=== PATIENT | female | born 1935 | race Caucasian/White ===

== ENCOUNTER 2020-05-06 16:42 | Observation (INO) | payer OTHER, SELFPAY ==
--- NOTE | ~2020-05-06 | MR_ITS ---
EXAMINATION: MR brain/brain stem wo con EXAM DATE: 05/07/2020 12:59 INDICATION: Transient ischemic attack. TECHNIQUE: Magnetic resonance imaging (MRI) of the brain/brain stem obtained without contrast. Sagitt al T1, axial diffusion, gradient echo (T2*), T1, T2, FLAIR sequences obtained. Comparison is made to prior examination from 02/11/2019. FINDINGS: There are no areas of restricted diffusion to suggest acute infarction. Punctate old left p eriventricular lacunar infarction. There is no acute hemorrhage seen on the T2*, a hemosiderin sensit aliyah sequence. No intraparenchymal brain mass lesion. There is moderate periventricular and subcortic al T2/FLAIR signal hyperintensity, nonspecific but probably related to small vessel ischemic disease (microangiopathy). There is mild to moderate prominence of the sulci and ventricles related to cere bral atrophy. There are no extra-axial collections. Flow voids are seen in the cerebral arteries o n the T2-weighted sequences consistent with their expected patency. Patient has had bilateral ocular lens surgery. Soft tissue is unremarkable. Small right sphenoid sinus mucous retention cyst. IMPRESSION: 1. Punctate old left periventricular lacunar infarction. 2. Chronic age related findings. Reviewed, dictated and finalized at location A.
--- NOTE | ~2020-05-06 | CT_ITS ---
EXAMINATION: CTA brain carotid DATE: 05/06/2020 17:36 INDICATION: Slurred speech. TECHNIQUE: Computed tomographic angiography (CTA) of the head was performed without and with 100 mL O mnipaque-350 intravenous contrast. CTA of the neck was performed with intravenous contrast. Automated exposure control and iterative reconstruction technique were employed. The dose-length product was 1 608.12 mGy-cm. Maximum intensity projection and volume rendered 3D-reconstructions were created by michael smart technologist on a separate workstation. COMPARISON: Head CT 02/10/2019, brain MRI 02/11/2019 FINDINGS: HEAD CTA: There is an old infarct involving the left caudate nucleus and anterior limb left internal capsule. There are scattered areas of low attenuation in the cerebral white matter. There are old lac unar infarcts in the bilateral thalami. There is no intracranial hemorrhage, acute infarction, or abn ormal intracranial mass lesion. The ventricles are normal in size. There are likely changes of ocular lens replacement surgeries. There is mild mucosal thickening in the paranasal sinuses. The mastoid a ir cells are normal. Left vertebral artery is dominant. There is no significant stenosis of basilar a rtery. There is moderate stenosis of left posterior cerebral artery. There is mild stenosis of the in tracranial internal carotid arteries. Right A1 anterior cerebral artery segment is absent, a normal v ariant. There is no significant stenosis of the middle cerebral arteries. Anterior communicating emperatriz ry is normal. The posterior communicating arteries are normal. There is no aneurysm. NECK CTA: There are nodules in the thyroid measuring up to 9 mm, likely not clinically significant. T here are no pathologically enlarged lymph nodes. There is no significant stenosis of the vertebral ar teries. There is plaque in the proximal internal carotid arteries. There is 0% stenosis of the proxim al right internal carotid artery relative to normal distal artery lumen diameter (NASCET criteria). T here is 9% stenosis of the proximal left internal carotid artery relative to normal distal artery lum en diameter. There is severe cervical spondylosis. IMPRESSION: 1. Old infarcts involving the bilateral thalami, left caudate nucleus, and anterior limb left interna l capsule. 2. Moderate nonspecific cerebral white matter disease, which likely represents chronic small vessel i schemic disease. 3. Moderate stenosis of left posterior cerebral artery. 4. 0% stenosis of the proximal right internal carotid artery relative to normal distal artery lumen d iameter (NASCET criteria). 5. 9% stenosis of the proximal left internal carotid artery relative to normal distal artery lumen emy guerrero. Reviewed, dictated and finalized at location A. IMPRESSION: 1. Old infarcts involving the bilateral thalami, left caudate nucleus, and ante rior limb left internal capsule. 2. Moderate nonspecific cerebral white matter disease, which likely represents chronic small vessel ischemic disease. 3. Moderate stenosis of left posterior cerebral artery. 4. 0% stenosis of the proximal right internal carotid artery relative to normal distal artery lumen diameter (NASCET criteria). 5. 9% stenosis of the proximal left internal carotid artery relative to normal distal artery lumen diameter.
[2020-05-06 16:48] VITALS: BP 162/78; PULSE 69; RESP 22; TEMP 36.4; O2SAT 100
--- NOTE | 2020-05-06 16:57 | ECG_ITS ---
Measurements Intervals [place] Rate: 65 P: 35 WI: 149 QRS: 18 QRSD: 81 T: 20 QT: 356 QTc: 372 Interpretive Statements SINUS RHYTHM EARLY PRECORDIAL R/S TRANSITION BASELINE ARTIFACT- I, II, III, AVR, AVL, AVF BORDERLINE ECG Electronically Signed On 05-06-2020 21:54:42 CDT by Ryley Cha D.O.
--- NOTE | 2020-05-06 16:57 | ED.GENADULT ---
HPI - General Adult General Chief complaint: Neuro Symptoms/Deficit Stated complaint: possible mini stroke Time Seen by Provider: 05/06/20 16:50 Source: patient and family History of Present Illness HPI narrative: Patient is a 85 y/o female complaining of some slurred speech and right facial droop starting about 12:30 PM today. Her symptoms lasted 30 minutes to 1 hour and have resolved. She also has been having dropping thing for about 1 month. She denies any focal weakness or numbness. Related Data Home Medications Medication Instructions Recorded Confirmed acetaminophen [Tylenol Arthritis 650 mg PO Q8H PRN 05/06/20 Pain] calcitriol 0.25 mcg PO 3XW 05/06/20 calcium carbonate [Calcium 600] 600 mg PO BID 05/06/20 pravastatin 40 mg PO HS 05/06/20 05/06/20 rivaroxaban [Xarelto] 20 mg HS 05/06/20 05/06/20 Allergies Allergy/AdvReac Type Severity Reaction Status Date / Time succinylcholine Allergy Severe HARD TO Verified 05/06/20 16:52 WAKE UP allopurinol Allergy Unknown Unknown Verified 05/06/20 16:52 celecoxib Allergy Unknown Unknown Verified 05/06/20 16:52 doxycycline Allergy Unknown Unknown Verified 05/06/20 16:52 erythromycin base Allergy Unknown MYCINS Verified 05/06/20 16:52 levofloxacin Allergy Unknown Unknown Verified 05/06/20 16:52 Penicillins Allergy Unknown Unknown Verified 05/06/20 16:52 Sulfa (Sulfonamide Allergy Unknown Unknown Verified 05/06/20 16:52 Antibiotics) Review of Systems Constitutional: Constitutional: Denies chills, Denies fever(s), Denies headache(s) and Denies weakness Eyes: Eyes: Denies blurry vision ENT: Denies headache(s) and Denies neck pain Cardiovascular: Cardiovascular: Denies chest pain and Denies dyspnea Respiratory: Respiratory: Denies cough and Denies dyspnea Gastrointestinal: Gastrointestinal: Denies abdominal pain, Denies diarrhea, Denies nausea and Denies vomiting Genitourinary: Genitourinary: Denies hematuria and Denies dysuria Musculoskeletal: Musculoskeletal: Denies back pain and Denies neck pain Neurologic: Reports as per HPI, Reports Abnormal speech present, Denies headache(s) and Denies weakness Psychiatric: Comments: facial droop PMFSH Past Medical History Medical History Age-related osteoporosis without current pathological fracture Atopic dermatitis Body mass index (bmi) 36.0-36.9, adult (02/27/17) Cerebrovascular accident (CVA) (~01/2019) Closed fracture of nasal bone with routine healing CVA, old, 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, degenerative, lumbar or lumbosacral GERD without esophagitis History of DVT (deep vein thrombosis) History of unsteady gait Hypertension, essential, benign Left acute otitis media Lesion of hard palate Low kidney function Lumbar back pain with radiculopathy affecting right lower extremity Lumbar spondylosis Menopausal state Mixed hyperlipidemia Obesity, unspecified (05/26/16) Right anterior knee pain Stage 3 chronic kidney disease Family History Family History Father Hypertension Family history of coronary artery disease Mother Hypertension Family history of coronary artery disease Social History Social History Smoking status: Never smoker Second hand tobacco smoke exposure: No Alcohol intake: current Exam Const: General: no acute distress and well developed Orientation/consciousness: oriented to person, oriented to place, oriented to time and patient oriented x3 HENMT: Head: normocephalic Ears: external ears normal General nose exam: Normal external nose present Eyes: General: appearance normal, both eyes and all related structures Conjunctivae: conjunctivae normal Neck: Neck: normal visual inspection and full ROM Chest: Chest palpation & inspection: normal inspection of the chest and no tenderness Resp: Effort
[2020-05-06 17:06] LABS: Basophils Percent Auto 0.6 % (0.2-1.2); Eosinophils Absolute Auto 0.1 K/mm3 (0-0.3); Eosinophils Percent Auto 1.9 % (0-4.4); Hematocrit 45.3 % (37.0-47.0); Hemoglobin 14.8 g/dL (12.0-15.0); Immature Granulocyte Absolute 0.01 K/mm3 (0.00-0.031); Immature Granulocyte Percent A 0.2 % (0-0.5); Lymphocytes Absolute Auto 2.37 K/mm3 (0.9-3.2); Lymphocytes Percent Auto 37.7 % (18.3-44.2); Mean Corpuscular HGB Conc 32.7 g/dl (32-36); Mean Corpuscular Hemoglobin 32.6 pg (26-34); Mean Corpuscular Volume 99.8 fl (80-100); Mean Platelet Volume 11.2 fl (7.4-10.4); Monocytes Absolute Auto 0.6 K/mm3 (0.1-0.6); Monocytes Percent Auto 9.2 % (2.6-8.5); Neutrophils Absolute Auto 3.2 K/mm3 (1.3-6.7); Neutrophils Percent Auto 50.4 % (45.5-73.1); Platelet Count Result 173 k/mm3 (150-375); Red Blood Count 4.54 M/mm3 (4.2-5.4); Red Cell Distribution Width 13.2 % (11.5-14.5); White Blood Count 6.3 K/mm3 (4.5-10.0)
[2020-05-06 17:16] LABS: INR 1.3; Prothrombin Time 15.4 Seconds (11.1-14.7)
[2020-05-06 17:17] LABS: Partial Thromboplastin Time 28.9 SECONDS (22.3-36.8)
[2020-05-06 17:20] LABS: Alanine Aminotransferase 21 U/L (4-35); Albumin Level 4.3 g/dL (3.5-5.1); Alkaline Phosphatase 106 U/L (38-126); Anion Gap 9 mmol/L (8-16); Aspartate Amino Transferase 39 U/L (14-36); Bilirubin,Total 0.7 mg/dL (0.2-1.3); Blood Urea Nitrogen 26 mg/dL (7-17); Calcium 9.3 mg/dL (8.4-10.2); Carbon Dioxide 28 mmol/L (22-30); Chloride 101 mmol/L (98-107); Estimated CRCL calculation 27 ml/min; Estimated Glomerular Filt Rate 36; Glucose 94 mg/dL (65-105); Potassium 4.6 mmol/L (3.4-5.0); Sodium 138 mmol/L (137-145)
[2020-05-06 17:47] VITALS: BP 147/59; PULSE 70; RESP 18; O2SAT 99
[2020-05-06] MEDS: SODIUM CHLORIDE 0.9% IV 1,000 ML 999 ML IV CONT (18:24)
[2020-05-06 19:07] VITALS: BP 158/92; PULSE 70; RESP 17; O2SAT 95
[2020-05-06 20:02] VITALS: BP 172/83; PULSE 75; RESP 16; O2SAT 100
--- NOTE | 2020-05-06 20:50 | PC.NURSE ---
This patient, Sandra Stein, was admitted to [facility]- at 2024. Patient/family oriented to hospital policies and general routines including ID bracelet, bed and alarms, visiting hours, pain management, procedures, bathroom and other care routines, personal items, smoking policy, room service/diet, and visiting hours. Valuables list has been completed. Information on how to activate the Rapid Response Team has been discussed. Patient/Family are encouraged to report perceived risks to care and to ask questions if they do not understand what they are told or what they should do.
[2020-05-06 21:09] VITALS: PULSE 80
[2020-05-06 21:23] VITALS: BP 181/75; PULSE 80; RESP 18; TEMP 37.1; O2SAT 98; BMI 37.7
[2020-05-07] VITALS (11 sets, daily range): BP systolic 150–184; BP diastolic 59–80; PULSE 58–76; RESP 14–16; TEMP 36.4–37; O2SAT 96–100
--- NOTE | 2020-05-07 | ECHO_ITS ---
Patient Info Name: Sandra Stein Age: 85 years : 1935 Gender: Female Ht: 60 in Wt: 193 lbs BSA: 1.97 m2 HR: 68 bpm BP: 175 / 71 mmHg Technical Quality: Good Exam Date: 05/07/2020 2:24 PM Exam Location: [facility] Patient Status: Outpatient Admit Date: 05/06/2020 Staff Ordering Physician: Nyla Dhillon PA-C Director Pharmacology: Tal Sanchez, SARA, RT Attending Provider: Nyla Dhillon PA-C Referring Physician: Alejo VASQUEZ; Exam Type: CA echo dop bubble study w con Study Info Indications G45.9 - Transient cerebral ischemic attack, unspecified Complete two-dimensional, color flow and Doppler transthoracic echocardiogram is performed with contrast to opacify the left ventricle and to improve the deliniation of the left ventricle endocardial borders. Complete two-dimensional, color flow and Doppler transthoracic echocardiogram is performed with agitated saline. Summary 1. Left ventricular chamber dimension is normal. 2. Definity contrast administered improved wall motion interpretation. 3. No LVOT obstruction. 4. Left ventricular systolic function is hyperdynamic, estimated at >70%. 5. The left ventricular diastolic function is grade I diastolic dysfunction. 6. E/e' 12 is mildly elevated. 7. Global longitudinal strain is mildly abnormal at -16.5%. 8. Left atrial chamber dimension is mildly enlarged. 9. Right atrial chamber dimension is mildly enlarged. 10. There is mild aortic valve sclerosis. 11. The mitral valve has mildly calcified annulus. 12. Mild systolic anterior motion of mitral valve. 13. There is mild tricuspid valve regurgitation. 14. Mild pulmonary hypertension, estimated pulmonary arterial systolic pressure is 41 mmHg. Left Ventricle E/e' 12 is mildly elevated. Definity contrast administered improved wall motion interpretation. Global longitudinal strain is mildly abnormal at -16.5%. No LVOT obstruction. Left ventricular chamber dimension is normal. Left ventricular systolic function is hyperdynamic, estimated at >70%. The left ventricular diastolic function is grade I diastolic dysfunction. Right Ventricle Right ventricular chamber dimension is normal. Right ventricular systolic function is normal. Left Atria Left atrial chamber dimension is mildly enlarged. Right Atria Right atrial chamber dimension is mildly enlarged. Atrial Septum Agitated saline injection with and without valsalva maneuver opacified right sided cardiac chambers without shunt to left sided cardiac chambers. Intact interatrial septum visualized by agitated saline imaging. Aortic Valve The aortic valve is trileaflet. There is mild aortic valve sclerosis. There is no aortic valve stenosis. There is no aortic valve regurgitation. Pulmonic Valve There is no pulmonic regurgitation. Mitral Valve The mitral valve has mildly calcified annulus. Mild systolic anterior motion of mitral valve. There is no mitral valve stenosis. There is no mitral valve regurgitation. Tricuspid Valve There is mild tricuspid valve regurgitation. Mild pulmonary hypertension, estimated pulmonary arterial systolic pressure is 41 mmHg. Pericardium/Pleural There is no pericardial effusion. Inferior Vena Cava Normal inferior vena cava with >50% collapse upon inspiration consistent with normal right atrial pressure, 5 mmHg. Aorta The aortic root size at the sinus of Valsalva is normal. Left Ventricular Outflow Tract
--- NOTE | 2020-05-07 00:12 | PM.IMHP ---
H&P: HPI History of Present Illness Date/Time: 05/07/20 00:12 Chief complaint: tia Narrative: Sandra Stein is a 85 year old female has a hx of afib and is on Xarelto. The patient was admitted here in January of last year was slurred speech. The patient had head trauma prior to that. She suffered a closed head injury and her nondisplaced nasal fracture per at that time. She has also had a history of TIA in the past. Her daughter and has been taking her medication. Patient came it was slurred speech and right facial droop. Her symptoms lasted 30 minutes to 1 hour. Her symptoms resolved after that. She has no focal weakness. Patient is back to baseline. CT scan of the brain was read as old infarcts involving the bilateral thalami, left caudate nucleus, and anterior limb of left internal capsule. Moderate nonspecific cerebral white matter disease. Moderate stenosis of the left partial cerumen artery. IV fluids were started. Date of service 05/06/2020 Review of Systems Review of Systems: All systems reviewed & are unremarkable except as noted in HPI and below Constitutional: Constitutional: Reports as per HPI and Reports no additional constitutional complaints Eyes: Eyes: Reports as per HPI and Reports no additional eye complaints ENT: Reports system reviewed and no additional complaints, except as documented and Reports Normal hearing present Cardiovascular: Cardiovascular: Reports no additional cardiovascular complaints Respiratory: Respiratory: Reports no additional respiratory complaints and Reports no additional respiratory complaints Gastrointestinal: Gastrointestinal: Reports as per HPI and Reports no additional gastrointestinal complaints Musculoskeletal: Musculoskeletal: Reports no additional musculoskeletal complaints Integumentary/Breasts: Skin/Breast: Reports system reviewed and no additional complaints, except as docu and Reports as per HPI Neurologic: Reports system reviewed and no additional complaints, except as documented, Reports as per HPI and Reports Normal hearing present Psychiatric: Psychiatric: Reports no additional psychiatric complaints and Reports as per HPI Endocrine: Endocrine: Reports no additional endocrine complaints Hematologic/Lymphatic: Hematologic/Lymphatic: Reports no additional hematologic/lymphatic complaints Allergic/Immunologic: Allergic/Immunologic: Reports no additional allergic/immunologic complaints [facility] Past Medical History Medical History (Updated 05/07/20 @ 00:30 by Martine Dye NP) Age-related osteoporosis without current pathological fracture Atopic dermatitis Atrial fibrillation Paroxysmal Body mass index (bmi) 36.0-36.9, adult (02/27/17) Cerebrovascular accident (CVA) (~01/2019) Closed fracture of nasal bone with routine healing CVA, old, 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, degenerative, lumbar or lumbosacral DVT (deep venous thrombosis) GERD without esophagitis Gout History of DVT (deep vein thrombosis) History of esophageal dilatation History of unsteady gait Hypertension, essential, benign Left acute otitis media Lesion of hard palate Low kidney function Lumbar back pain with radiculopathy affecting right lower extremity Lumbar spondylosis Menopausal state Mixed hyperlipidemia Obesity, unspecified (05/26/16) Right anterior knee pain Shingles Stage 3 chronic kidney disease Surgical History Surgical History (Updated 05/07/20 @ 00:30 by Martine Dye NP) H/O dilation and curettage History of cataract extraction Hx of total knee arthroplasty Left S/P rotator cuff repair Family History Family History Father Family history of coronary artery disease Hypertension Mother Family history of coronary artery disease Hypertension Sibling Dementia Social History Social History (Updated 05/07/20 @ 00:32 by Martine Dye NP) Social History: The patient lives with h
--- NOTE | 2020-05-07 08:37 | PM.IMPN ---
Progress Note: A&P Assessment and Plan (1) TIA (transient ischemic attack): Code(s): G45.9 - Transient cerebral ischemic attack, unspecified Status: Acute Assessment and Plan: With transient episode of right facial droop and slurred speech. No residual deficit present at this time. CTA head/neck demonstrated old infarcts in the bilateral thalami, left caudate nucleus, and anterior limb left internal capsule, chronic small vessel ischemic disease, and moderate stenosis of the left posterior cerebral artery. No significant carotid stenosis visualized with 0% stenosis of the proximal right internal carotid artery and 9% stenosis of the proximal left carotid artery. She is not on any antihypertensives and reports blood pressures have been higher in the past 3-4 months (150s systolic - denies >180). Allow for permissive hypertension for now but she may need antihypertensive therapy. She has a hx of paroxysmal atrial fibrillation on xarelto. She has a hx of TIA 01/2019. She was on aspirin and plavix in the past but has not been taking either. She may benefit from both ASA and plavix given recurrent TIAs. Continue ASA. Stop pravastatin and start high-intensity statin. I will ask cardiology to see her to weigh in on their recommendations regarding xarelto. She had a hx of fall 01/28/19 and xarelto was held for three weeks. She subsequently developed TIA and xarelto was resumed. Telemetry monitoring performed 03/11 demonstrated sinus rhythm, episodes of SVT, and symptomatic sinus bradycardia (metoprolol discontinued given that finding). Appreciate cardiology and neurology input. Order echocardiogram with bubble study and await MRI. TSH ordered and pending. (2) Atrial fibrillation: Code(s): I48.91 - Unspecified atrial fibrillation Status: Chronic Assessment and Plan: Paroxysmal. The patient is in sinus rhythm at this time. Xarelto is held at this time while waiting for further neurology input. She was on metoprolol previously but this was discontinued due 05/27/19 by cardiology due to excessive fatigue and marked sinus bradycardia. She sees Dr. Waterman for primary cardiology. Await neurology input regarding when to resume xarelto. (3) Mixed hyperlipidemia: Code(s): E78.2 - Mixed hyperlipidemia Status: Acute Assessment and Plan: Recommend high-intensity statin and will change pravastatin to atorvastatin 40mg. Lipid panel reviewed from 6/21/19. Will repeat. Mild AST elevation at 39 noted. Pt will need LFTs monitored outpatient. (4) History of DVT (deep vein thrombosis): Code(s): Z86.718 - Personal history of other venous thrombosis and embolism Status: Acute Assessment and Plan: Xarelto is held at this time pending MRI/neurology recommendations. Continue SCDs and resume xarelto when clinically appropriate. (5) Hypertension, essential, benign: Code(s): I10 - Essential (primary) hypertension Status: Acute Assessment and Plan: The patient is not on any antihypertensives at this time. Blood pressures are above target. Allow for permissive hypertension for now but she will need better BP control and recommend initiation of antihypertensive prior to discharge if BP does not improve. Time Spent With Patient Time with patient: 25 - 35 minutes Subjective Date/time seen: 05/07/20 08:37 Mrs. Stein is an 85 y.o. female with PMH significant for atrial fibriillation on xarelto, hx of CVA, hx of DVT, hyperlipdemia, and stage III kidney disease who is seen in follow-up for TIA. She had an episode of transient slurred speech and right facial droop which she states lasted 30-60 minutes prior to admission. Symptoms resolved with no residual deficit. She reports no further neurological symptoms. She denies lateralizing weakness, vision change, and speech change. She enies chest pain, palpitations, and dyspnea. She denies nausea, vomiting, and abdominal pain. He
[2020-05-07] MEDS: ATORVASTATIN 40 MG TABLET PO (09:42)
[2020-05-07] MEDS: ASPIRIN 81 MG ENTERIC TABLET PO (09:42)
[2020-05-07] MEDS: CALCIUM CARBONATE (OSCAL) 500 MG TABLET PO ×2 (09:42→17:22)
[2020-05-07] MEDS: calcitrioL 0.25 MCG CAPSULE PO (09:48)
--- NOTE | 2020-05-07 10:49 | WPDNEURCNPN ---
Assessment and Plan Assessment and plan (1) Atrial fibrillation: Code(s): I48.91 - Unspecified atrial fibrillation Status: Chronic (2) Slurred speech: Code(s): R47.81 - Slurred speech Status: Acute (3) TIA (transient ischemic attack): Code(s): G45.9 - Transient cerebral ischemic attack, unspecified Status: Acute (4) CVA, old, speech/language deficit: Onset Date: ~01/2019 Code(s): I69.328 - Other speech and language deficits following cerebral infarction Status: Chronic (5) History of unsteady gait: Code(s): Z87.898 - Personal history of other specified conditions Status: Acute Additional Plan TIA with history of underlying atrial fibrillation for which patient is on anticoagulation that is xarelto, initial studies have documented the bilateral subcortical strokes in the past as well,MRI will be obtained to document any new changes ,in the meantime the treatment will be continued as such Consult date: 05/07/20 Time Seen: 10:15 HPI: Sandra Stein is a 85 year old femaleAdmitted to the hospital with the complaints of slurred speech and right facial droop lasting for 30 minutes [id number] without associated focal weakness initial CT scan of the brain in the emergency room documented old infarct involving the bilateral thalamus nuclei left caudate nucleus and anterior limb of the left internal capsule along with the nonspecific white matter disease in addition patient has history of 1. Atrial fibrillation for which she is taking Xarelto 2. Being admitted in January of last year for the dysarthria 3. Closed head trauma with non displaced nasal fracture 4. History of TIA in the past CTA documented the bilateral thalami left caudate nucleus and anterior limb of the left internal capsule infarct with nonspecific white matter disease moderate stenosis of left posterior cerebral artery but nonsignificant stenosis of the proximal right and left internal carotid arteries MRI of the brain at this particular state is awaited Review of Systems Review of Systems: All systems reviewed & are unremarkable except as noted in HPI and below [facility] Past Medical History Medical History (Updated 05/07/20 @ 00:30 by Martine Dye NP) Age-related osteoporosis without current pathological fracture Atopic dermatitis Atrial fibrillation Paroxysmal Body mass index (bmi) 36.0-36.9, adult (02/27/17) Cerebrovascular accident (CVA) (~01/2019) Closed fracture of nasal bone with routine healing CVA, old, 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, degenerative, lumbar or lumbosacral DVT (deep venous thrombosis) GERD without esophagitis Gout History of DVT (deep vein thrombosis) History of esophageal dilatation History of unsteady gait Hypertension, essential, benign Left acute otitis media Lesion of hard palate Low kidney function Lumbar back pain with radiculopathy affecting right lower extremity Lumbar spondylosis Menopausal state Mixed hyperlipidemia Obesity, unspecified (05/26/16) Right anterior knee pain Shingles Stage 3 chronic kidney disease Surgical History Surgical History (Updated 05/07/20 @ 00:30 by Martine Dye NP) H/O dilation and curettage History of cataract extraction Hx of total knee arthroplasty Left S/P rotator cuff repair Family History Family History Father Family history of coronary artery disease Hypertension Mother Family history of coronary artery disease Hypertension Sibling Dementia Social History Social History (Updated 05/07/20 @ 00:32 by Martine Dye NP) Social History: The patient lives with her daughter. 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 Her son Abel is a durable power insurance defense attorney for healthcare. And she desires to be a full code. She denies any alcohol, marijuana, tobacco Nor illicit drugs. Smoking status: Never smoker Second
--- NOTE | 2020-05-07 12:13 | PCSTNOTE ---
Please refer to the Bedside Swallow Evaluation in the EMR. Please note, silent aspiration cannot be ruled out at bedside.
--- NOTE | 2020-05-07 14:16 | PM.CNCAR ---
Assessment and Plan Additional Plan 85-year-old white female with: Recurrent neurological episodes representing either CVAs or TIAs. She has been anticoagulated for a period of time now with Xarelto because of the diagnosis of atrial fibrillation. After reviewing Dr. Waterman notes and the hospital records I believe we should be skeptical of this diagnosis since no one has ever seen atrial fibrillation that I can detect by looking at the chart. The patient also does not really recall where this diagnosis came from. It is therefore my opinion that I would not recommend resuming anticoagulation with Xarelto or anything else unless we document atrial fibrillation. She should remain on telemetry while she is in the hospital for that reason. If we do not see any evidence of atrial fibrillation I would recommend instituting anti-platelet therapy with clopidogrel 75 mg daily. Jerry Perdomo MD [facility] History of Present Illness History of Present Illness Consult date/time: Date of jwaqzao19/14/20 14:16 Consult reason: atrial fibrillation Reason For Visit: tia Narrative: this is an 85-year-old woman that is known to Dr. Waterman of our practice with seeing at the request of the hospitalist's to render an opinion as to the indication for ongoing systemic anticoagulation. The patient follows with Dr. Parra in our practice and was referred to see him in the past to manage atrial fibrillation. Upon reading his extensive office notes it is very interesting that this lady somewhere in the chart has give been given the diagnosis of atrial fibrillation but despite an exhaustive effort to Dr. Waterman has never been able to find any documentation of that. All of the electrocardiograms that are available to look at in the chart demonstrate nothing but sinus rhythm going back a number of years and she had a 30 day event monitor last year which did not show any evidence of atrial fibrillation during the month of monitoring. She has no symptoms of palpitations or tachycardia. She has no history of syncopal episode. Because of the supposed diagnosis of atrial fibrillation she has been treated with systemic anticoagulation with Xarelto at a dosage of 20 mg per day. Interestingly in December of 2018 she had symptoms of a TIA with some expressive aphasia despite being anticoagulated and in sinus rhythm. Patient was brought to the hospital again yesterday with similar symptoms which lasted about 30 minutes to an hour. She is currently asymptomatic and offers no complaints. Patient's 12 lead electrocardiogram again in this hospitalization is completely normal. Review of Systems Constitutional: Constitutional: Reports no additional constitutional complaints Eyes: Eyes: Reports no additional eye complaints ENT: Reports system reviewed and no additional complaints, except as documented Cardiovascular: Cardiovascular: Reports no additional cardiovascular complaints Respiratory: Respiratory: Reports no additional respiratory complaints Gastrointestinal: Gastrointestinal: Reports no additional gastrointestinal complaints Musculoskeletal: Musculoskeletal: Reports no additional musculoskeletal complaints Integumentary/Breasts: Skin/Breast: Reports system reviewed and no additional complaints, except as docu Neurologic: Reports as per HPI and Reports Abnormal speech present Psychiatric: Psychiatric: Reports no additional psychiatric complaints Endocrine: Endocrine: Reports no additional endocrine complaints Hematologic/Lymphatic: Hematologic/Lymphatic: Reports no additional hematologic/lymphatic complaints Allergic/Immunologic: Allergic/Immunologic: Reports no additional allergic/immunologic complaints [facility] Past Medical History Medical History (Updated 05/07/20 @ 00:30 by Martine Dye NP) Age-related osteoporosis without current pathological fracture Atopic dermatitis Atrial fibrillation Paroxysmal Body mass index (bmi) 36.0-36.9, adult (
[2020-05-07] MEDS: PERFLUTREN LIPID MICROSPHERES 1.5 ML VIAL DILUTED TO 10 ML TOTAL VOLUME IV PUSH (15:27)
[2020-05-07] MEDS: ACETAMINOPHEN 325 MG TABLET 650 MG PO (19:51)
[2020-05-08] VITALS (7 sets, daily range): BP systolic 138–168; BP diastolic 63–73; PULSE 53–88; RESP 12–16; TEMP 36.4–36.7; O2SAT 97–99
[2020-05-08 05:28] LABS: Basophils Percent Auto 0.6 % (0.2-1.2); Eosinophils Absolute Auto 0.2 K/mm3 (0-0.3); Eosinophils Percent Auto 3.9 % (0-4.4); Hematocrit 41.2 % (37.0-47.0); Hemoglobin 13.7 g/dL (12.0-15.0); Immature Granulocyte Absolute 0.01 K/mm3 (0.00-0.031); Immature Granulocyte Percent A 0.2 % (0-0.5); Lymphocytes Absolute Auto 1.87 K/mm3 (0.9-3.2); Lymphocytes Percent Auto 38.6 % (18.3-44.2); Mean Corpuscular HGB Conc 33.3 g/dl (32-36); Mean Corpuscular Volume 99.3 fl (80-100); Mean Platelet Volume 11.3 fl (7.4-10.4); Monocytes Absolute Auto 0.4 K/mm3 (0.1-0.6); Monocytes Percent Auto 8.7 % (2.6-8.5); Neutrophils Absolute Auto 2.3 K/mm3 (1.3-6.7); Platelet Count Result 149 k/mm3 (150-375); Red Blood Count 4.15 M/mm3 (4.2-5.4); Red Cell Distribution Width 13.1 % (11.5-14.5); White Blood Count 4.9 K/mm3 (4.5-10.0)
[2020-05-08 05:39] LABS: Anion Gap 5 mmol/L (8-16); Blood Urea Nitrogen 26 mg/dL (7-17); Calcium 9.2 mg/dL (8.4-10.2); Carbon Dioxide 26 mmol/L (22-30); Chloride 109 mmol/L (98-107); Estimated CRCL calculation 31 ml/min; Estimated Glomerular Filt Rate 43; Glucose 99 mg/dL (65-105); Magnesium 1.8 mg/dL (1.6-2.3); Phosphorus 3.6 mg/dL (2.5-4.5); Sodium 140 mmol/L (137-145)
[2020-05-08] MEDS: ATORVASTATIN 40 MG TABLET PO (08:07)
[2020-05-08] MEDS: CALCIUM CARBONATE (OSCAL) 500 MG TABLET PO (08:07)
[2020-05-08] MEDS: ASPIRIN 81 MG ENTERIC TABLET PO (08:07)
[2020-05-08] MEDS: CLOPIDOGREL BISULFATE 75 MG TABLET PO (11:14)
--- NOTE | 2020-05-08 11:20 | PM.PNCARD ---
Progress Note: A&P Assessment and Plan (1) TIA (transient ischemic attack): Code(s): G45.9 - Transient cerebral ischemic attack, unspecified Status: Acute Assessment and Plan: Symptoms have resolved. Xarelto change to aspirin plus Plavix. Pravastatin changed to atorvastatin 40 mg daily Okay for discharge from my point of view. Will arrange for follow-up office visit with Dr. Waterman and check with him regarding further monitoring or a LINQ Loop recorder , though we have not seen any atrial fibrillation to date. (2) Hypertension, essential, benign: Code(s): I10 - Essential (primary) hypertension Status: Acute Assessment and Plan: blood pressure a bit high but will be starting on losartan. (3) H/O: stroke: Code(s): Z86.73 - Personal history of transient ischemic attack (TIA), and cerebral infarction without residual deficits Status: Acute Assessment and Plan: Multiple old strokes noted by CT scan. (4) Cerebrovascular disease: Code(s): I67.9 - Cerebrovascular disease, unspecified Status: Acute Assessment and Plan: [id number] cerebrovascular disease noted. Carotids had minimal disease. Continue anti-platelet therapy and statin. Continue with blood pressure management. Subjective Date/time seen: 05/08/20 11:20 Follow-up another TIA. Mrs. Cruz is followed by Dr. Waterman, with a history of TIAs. Questionable history of AFib which has never been confirmed. Date of service: 05/08/2020 Patient feels she has been back to normal, no further trouble with slurred speech. Because of lack of evidence of a fib and recurrent TIA, the patient was changed from Xarelto to Plavix plus aspirin. Echo yesterday showed EF greater than 70%. CTA as below. Tele: NSR, APCs. Review of Systems Review of Systems: Narrative: Hopes to go home today. Constitutional: Constitutional: Denies fatigue Eyes: Eyes: Reports no additional eye complaints ENT: Denies epistaxis Cardiovascular: Cardiovascular: Denies chest pain Respiratory: Respiratory: Denies cough and Denies dyspnea Gastrointestinal: Gastrointestinal: Denies abdominal pain Genitourinary: Genitourinary: Denies hematuria and Denies flank pain Musculoskeletal: Musculoskeletal: Denies back pain Integumentary/Breasts: Skin/Breast: Denies rash Neurologic: Denies Abnormal speech present and Denies confusion Psychiatric: Psychiatric: Reports no additional psychiatric complaints and Denies behavioral changes Exam Narrative: Exam Narrative: Pleasant older lady sitting up in a chair, eating her lunch, no distress. Const: General: comfortable and no acute distress HENMT: General nose exam: no epistaxis Mouth: Yes moist mucous membranes Eyes: EOM: EOMs intact bilaterally Neck: Neck: supple Resp: Effort & Inspection: normal respiratory effort Auscultation: clear to auscultation bilaterally Cardio: Rate: regular rate Rhythm: regular rhythm Heart sounds: no murmurs Objective Data Vital Signs Vital Signs: Vital Signs - 24 hr 05/07/20 12:00 05/07/20 15:30 05/07/20 16:00 Temperature 98.2 F Pulse Rate 63 60 67 Respiratory Rate 16 Blood Pressure 184/77 H Pulse Oximetry 97 05/07/20 20:00 05/07/20 20:16 05/08/20 00:00 Temperature 98.6 F Pulse Rate 71 75 60 Respiratory Rate 14 Blood Pressure 150/59 H Pulse Oximetry 100 05/08/20 02:40 05/08/20 04:00 05/08/20 08:00 Temperature 98.1 F Pulse Rate 88 53 L 72 Respiratory Rate 12 Blood Pressure 168/73 H Pulse Oximetry 98 Intake/Output Intake/Output: Intake & Output 05/05/20 05/06/20 05/07/20 05/08/20 23:59 23:59 23:59 23:59 Intake Total 1000 1910 640 Output Total 2450 1100 Balance 1000 -540 -460 Meds/Results Medications: Active Medicatio
--- NOTE | 2020-05-08 11:58 | PM.DS ---
DS: Admitting Diagnosis Admitting Diagnosis Admitting Diagnosis: tia DS: Discharge Diagnosis Discharge Diagnosis (1) TIA (transient ischemic attack): Code(s): G45.9 - Transient cerebral ischemic attack, unspecified Status: Acute Assessment and Plan: With transient episode of right facial droop and slurred speech. No residual deficit present at this time. CTA head/neck demonstrated old infarcts in the bilateral thalami, left caudate nucleus, and anterior limb left internal capsule, chronic small vessel ischemic disease, and moderate stenosis of the left posterior cerebral artery. No significant carotid stenosis visualized with 0% stenosis of the proximal right internal carotid artery and 9% stenosis of the proximal left carotid artery. Telemetry monitoring showed NSR with HR 62 bpm with PACs, but no findings of arrhythmia or afib. Echocardiogram with bubble study showed normal systolic EF 70%, diastolic grade I. NO acute abnormality. MRI showed no acute CVA, old CVA, moderate stenosis at left posterior vertebral artery. TSH normal. Speech evaluated and she did well with bedside evaluation and eating trial. Regular diet and thin liquids. Recorded history of paroxysmal atrial fibrillation on xarelto. Cardiology consulted and have yet to found Afib evidence on multiple heart monitors and none during this hospitalization. Cardiology would like to discontinue Xarelto and start Aspirin 81 mg and Plavix 75 mg. Stop pravastatin and start high-intensity statin, Atrovastatin. Will need to check lipid panel as outpatient in weeks. The patient is currently at her baseline and feels comfortable discharge at this time. She will follow-up with her primary care provider in 1 week and Cardiology will schedule her follow-up appointment with Dr. Waterman. patient understands and agrees the plan all questions answered. (2) Atrial fibrillation: Code(s): I48.91 - Unspecified atrial fibrillation Status: Chronic Assessment and Plan: Recorded history of paroxysmal atrial fibrillation on xarelto. Cardiology consulted and have yet to found Afib evidence on multiple heart monitors and none during this hospitalization. Cardiology would like to discontinue Xarelto and start Aspirin 81 mg and Plavix 75 mg. (3) Mixed hyperlipidemia: Code(s): E78.2 - Mixed hyperlipidemia Status: Acute Assessment and Plan: Recommend high-intensity statin and will change pravastatin to atorvastatin 40mg. Will need fasting lipid panel in 6 weeks as well as monitoring of her liver functions. (4) History of DVT (deep vein thrombosis): Code(s): Z86.718 - Personal history of other venous thrombosis and embolism Status: Acute Assessment and Plan: Cardiology feels as are also can be discontinued at this time since she has no significant history of atrial fibrillation. Told to continue being active to prevent recurrence of DVTs. (5) Hypertension, essential, benign: Code(s): I10 - Essential (primary) hypertension Status: Acute Assessment and Plan: She is not on any antihypertensives and reports blood pressures have been higher in the past 3-4 months (150s systolic - denies >180). We Allowed for permissive hypertension, but this morning started her on Losartan 25 mg daily. She will check her BP twice daily and write down her readings to show her PCP. DS: Summary Hospital Course Reason for hospitalization: Patient is an 85-year-old woman with a history of AFib on Xarelto, history of TIA, who presented to the emergency room after having an episode of slurred speech, right facial droop, feeling off balance which lasted about 30 mi
[2020-05-08] MEDS: LOSARTAN POTASSIUM 25 MG TABLET PO (12:25)
--- NOTE | 2020-05-08 13:29 | WPDNEURCNPN ---
Assessment and Plan Assessment and plan (1) Cerebrovascular disease: Code(s): I67.9 - Cerebrovascular disease, unspecified Status: Acute (2) H/O: stroke: Code(s): Z86.73 - Personal history of transient ischemic attack (TIA), and cerebral infarction without residual deficits Status: Acute (3) Gout: Code(s): M10.9 - Gout, unspecified Status: Chronic (4) TIA (transient ischemic attack): Code(s): G45.9 - Transient cerebral ischemic attack, unspecified Status: Acute (5) CVA, old, speech/language deficit: Onset Date: ~01/2019 Code(s): I69.328 - Other speech and language deficits following cerebral infarction Status: Chronic (6) Stage 3 chronic kidney disease: Code(s): N18.3 - Chronic kidney disease, stage 3 (moderate) Status: Acute Additional Plan patient is back to her baseline has been seen by the certified medical records coder the notes were reviewed the present management can be continued Consult date: 05/08/20 Time Seen: 13:00 HPI: Sandra Stein is a 85 year old female was woman admitted because of the reoccurrence of the TIA has been seen by the certified medical records coder her Xarelto has been changed to aspirin and Plavix because there is no clear-cut history of atrial fibrillation the patient is back to her baseline denies any headache nausea vomiting chest pain shortness of breath fever chills sore throat particularly no trouble talking no trouble with dysarthria dysphonia aphasia or any lateralizing weakness Review of Systems Review of Systems: All systems reviewed & are unremarkable except as noted in HPI and below PMFSH Past Medical History Medical History Age-related osteoporosis without current pathological fracture Atopic dermatitis Atrial fibrillation Paroxysmal Body mass index (bmi) 36.0-36.9, adult (02/27/17) Cerebrovascular accident (CVA) (~01/2019) Cerebrovascular disease Closed fracture of nasal bone with routine healing CVA, old, 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, degenerative, lumbar or lumbosacral DVT (deep venous thrombosis) GERD without esophagitis Gout H/O: stroke History of DVT (deep vein thrombosis) History of esophageal dilatation History of unsteady gait Hypertension, essential, benign Left acute otitis media Lesion of hard palate Low kidney function Lumbar back pain with radiculopathy affecting right lower extremity Lumbar spondylosis Menopausal state Mixed hyperlipidemia Obesity, unspecified (05/26/16) Right anterior knee pain Shingles Stage 3 chronic kidney disease Surgical History Surgical History H/O dilation and curettage History of cataract extraction Hx of total knee arthroplasty Left S/P rotator cuff repair Family History Family History Father Family history of coronary artery disease Hypertension Mother Family history of coronary artery disease Hypertension Sibling Dementia Social History Social History Social History: The patient lives with her daughter. 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 Her son Abel is a durable power insurance attorney for healthcare. And she desires to be a full code. She denies any alcohol, marijuana, tobacco Nor illicit drugs. Smoking status: Never smoker Second hand tobacco smoke exposure: No Alcohol intake: never Substance use: never Gender identity (if verbalized by the patient): Female Spiritual care concerns: No Meds Home Medications and Allergies Home Medications Medication Instructions Recorded Confirmed Type ectskdyo-dvrvidpth-eucepkcf 3.5 1 drop LEFTEYE Q6H #5 ml 03/02/20 05/06/20 Rx mg/mL-10,000 unit/mL-0.1% eye drops acetaminophen [Tylenol Arthritis 650 mg PO Q8H PRN 05/06/20 05/06/20 History Pain] calci
== END 2020-05-08 15:15 | disposition home or self-care (01) ==
LOC: ANHED 18:13 → ANH2MED 19:12
PROVIDERS: Nurse Practitioner; Admitting Provider Internal Medicine; Emergency Provider Emergency Medicine; PCP Family Medicine; Visit Provider Physician Assistant
DX: G45.9 Transient cerebral ischemic attack, unspecified (principal); I67.9 Cerebrovascular disease, unspecified; I48.0 Paroxysmal atrial fibrillation; Z79.01 Long term (current) use of anticoagulants; I12.9 Hypertensive chronic kidney disease with stage 1 through stage 4 chronic kidney disease, or unspecified chronic kidney disease; N18.3 Chronic kidney disease, stage 3 (moderate); K21.9 Gastro-esophageal reflux disease without esophagitis; E78.2 Mixed hyperlipidemia; M47.816 Spondylosis without myelopathy or radiculopathy, lumbar region; E66.9 Obesity, unspecified; Z68.36 Body mass index [BMI] 36.0-36.9, adult; M81.0 Age-related osteoporosis without current pathological fracture; M10.9 Gout, unspecified
CPT/HCPCS: 36415; 70496; 70498; 70551; 80048; 80053; 83735; 84100; 84443; 85025; 85610; 85730; 92610; 93005; 93306; 96361; 96374; 96375; 99285; A9270; C8929; G0378; J7030; Q9957; Q9967

== ENCOUNTER 2020-05-19 01:17 | Outpatient (CLI) | payer OTHER, SELFPAY ==
[2020-05-19 17:48] LABS: SARS-CoV-2 RNA PCR Negative
== END 2020-05-19 01:18 | disposition home or self-care (01) ==
LOC: ANHCOVIDDT 01:17
PROVIDERS: PCP Family Medicine; Visit Provider Internal Medicine Cardiovascular Disease
DX: Z01.812 Encounter for preprocedural laboratory examination (principal); Z20.828 Contact with and (suspected) exposure to other viral communicable diseases
CPT/HCPCS: 87635; C9803; U0003

== ENCOUNTER 2020-05-22 02:15 | Day surgery (SDC) | payer OTHER, SELFPAY ==
[2020-05-21 14:25] VITALS: BMI 33.4
[2020-05-22 09:26] VITALS: BP 160/73; PULSE 68; RESP 14; TEMP 36.3; O2SAT 100
--- NOTE | 2020-05-22 10:18 | WPDHPUPDATE1 ---
History and Physical Update Update Date/Time: 05/22/20 10:18 History and Physical (please refer to Cardiology Consultation note 05/07/2020) has been reviewed, including an updated exam of the patient. There are NO changes in the patient's condition. Risks, benefits, and alternatives have been discussed and questions answered. Patient agrees to proceed with procedure.
--- NOTE | 2020-05-22 10:19 | P.OP_ITS ---
Procedure Note - Detailed Date of procedure: 05/22/20 Pre-op diagnosis: TIA Post-op diagnosis: same Procedure performed: Loop recorder implantation Description of procedure: Brief history present illness: Patient is a 85-year-old female with prior history of stroke, DVT, hypertension recently admitted with concern for TIA off anticoagulation referred for loop recorder implantation to assess for atrial fibrillation /flutter as source for for emboli. After verbal and written informed consent was obtained from the patient risks, benefits, and alternatives explained in detail the patient agreed to proceed with the plan of care as outlined above. Patient was evaluated at bedside in the [facility] procedure room. Patient was placed the appropriate supine position. Left anterior chest wall was prepped and draped in the usual sterile fashion. Operators in appropriate sterile garb. The left 4th intercostal space was identified and marked. Utilizing approximately 30 cc of 1% subcutaneous lidocaine the left anterior chest wall was then locally anesthetized. After local anesthesia was achieved, 2 fingerbreadths left of the sternum at the 4th intercostal space was again identified and a 1 cm incision was made with the inc luded skin punch tool. Following this with the included introducer, a tract was made subcutaneously at a 45 degree angle from the sternum. The introducer was then inverted 180 degrees and with the included plunger the Medtronic REVEAL LINQ loop recorder was advanced subcutaneously into position easily and without complication. The plunger was then removed followed by the introducer. Manual pressure was held for least 5-10 min with excellent hemostasis. The device was then interrogated and revealed excellent fidelity and measured at 0.8 mV. The Medtronic REVEAL LINQ SN [id number] was implanted without complication. The incision was then approximated and closed using skin adhesive. The incision was then covered with a sterile dressing. Complications: None Anesthesia: local Surgeon: Jam Waterman MD Drains: No Packing: No Pathology: none sent Complications: No immediate complications Condition: stable Disposition: same day Findings: Successful implantation of Medtronic Reveal LINQ loop recorder.
== END 2020-05-22 11:45 | disposition home or self-care (01) ==
PROVIDERS: PCP Family Medicine; Visit Provider Internal Medicine Cardiovascular Disease
PROC: (CPT 33285; principal; 2020-05-22 10:00)
DX: G45.9 Transient cerebral ischemic attack, unspecified (principal); I67.9 Cerebrovascular disease, unspecified; Z86.73 Personal history of transient ischemic attack (TIA), and cerebral infarction without residual deficits; M10.9 Gout, unspecified; N18.3 Chronic kidney disease, stage 3 (moderate); I10 Essential (primary) hypertension
CPT/HCPCS: 33285; C1764

== ENCOUNTER 2020-06-16 09:06 | Outpatient (CLI) | payer OTHER, SELFPAY ==
[2020-06-16 09:44] LABS: Alanine Aminotransferase 25 U/L (4-35); Albumin Level 3.9 g/dL (3.5-5.1); Alkaline Phosphatase 124 U/L (38-126); Anion Gap 5 mmol/L (8-16); Aspartate Amino Transferase 37 U/L (14-36); Bilirubin,Total 0.7 mg/dL (0.2-1.3); Blood Urea Nitrogen 22 mg/dL (7-17); Calcium 9.7 mg/dL (8.4-10.2); Carbon Dioxide 32 mmol/L (22-30); Chloride 103 mmol/L (98-107); Cholesterol 123 mg/dL (0-200); Estimated Glomerular Filt Rate 43; Glucose 99 mg/dL (65-105); HDL Direct 56 mg/dL; Potassium 4.3 mmol/L (3.4-5.0); Sodium 140 mmol/L (137-145); Triglycerides 94 mg/dL (<150)
[2020-06-16 09:54] LABS: LDL Cholesterol Direct 45 mg/dL
== END 2020-06-16 09:07 | disposition home or self-care (01) ==
PROVIDERS: PCP Family Medicine; Visit Provider Physician Assistant
DX: E78.2 Mixed hyperlipidemia (principal); I69.328 Other speech and language deficits following cerebral infarction; I67.9 Cerebrovascular disease, unspecified; G45.9 Transient cerebral ischemic attack, unspecified
CPT/HCPCS: 36415; 80053; 80061

== ENCOUNTER 2021-02-24 14:00 | Emergency (ER) | payer OTHER, SELFPAY ==
--- NOTE | ~2021-02-24 | CT_ITS ---
EXAMINATION: CT brain wo con, CT cervical spine wo con EXAM DATE: 02/24/2021 14:50 (accession [id number]), 02/24/2021 14:51 (accession [id number]) INDICATION: Fall, laceration to forehead. On blood thinners. Head injury. Initial encounter. TECHNIQUE: Spiral CT of the head was performed without contrast. Axial, coronal and sagittal images were reviewed. Spiral CT of the cervical spine was performed without contrast. Axial images were rev iewed. Coronal and sagittal reformatted images were also reviewed. The dose-length product (DLP) fo r this examination was 605.33 (accession [id number]), 375.47 (accession [id number]) mGy-cm. The exposure was tailored according to patient size, and iterative reconstruction (ASIR) was used as additional dose reduction technique. Comparison is made to prior examination from 05/06/2020. FINDINGS: HEAD CT: There is old left caudate head lacunar infarction. Old bilateral thalamic lacunar infarction s. There is no acute intraparenchymal hemorrhage. No evidence of intraparenchymal brain mass lesion. No evidence of acute infarction. There is moderate periventricular and subcortical hypodensity, non specific but probably related to small vessel ischemic disease. There is mild prominence of the sul ci and ventricles related to cerebral atrophy. There is no mass effect or midline shift. There is no obstructive hydrocephalus suspected. There are no extra-axial collections. There are no acute ca lvarial fractures. Patient has had bilateral ocular lens surgery. Left frontal scalp contusion, lac eration. The visualized sinuses and mastoid air cells are well aerated. CERVICAL CT: There is no evidence of acute cervical fracture. The odontoid process is intact. Pre- dens space is normal. Prevertebral soft tissue is normal. There are no soft tissue abnormalities id entified. There is no disc space widening or traumatic vertebral body subluxation suspected. Fused C2-3 vertebral bodies. Advanced cervical facet arthropathy. A detailed level by level evaluation of spondylosis can be added as addendum if requested. IMPRESSION: 1. No acute intracranial findings or cervical fracture. 2. Old lacunar infarctions. 3. Left frontal scalp contusion, laceration. 4. Cervical spondylosis. Reviewed, dictated and finalized at location A. IMPRESSION: 1. No acute intracranial findings or cervical fracture. 2. Old lacunar infarctions. 3. Left frontal scalp contusion, laceration. 4. Cervical spondylosis.
--- NOTE | ~2021-02-24 | XR_ITS ---
EXAMINATION: XR knee LT min 4V EXAM DATE: 02/24/2021 15:03 INDICATION: Initial encounter following injury, with pain of the left knee. TECHNIQUE: Left knee frontal, crosstable lateral, orthogonal oblique projections for interpretation. Comparison is made to prior examination from . FINDINGS: No evidence osteochondral defect or joint body in the left knee joint. Knee replacement hardware intact. There are no acute fractures or dislocations identified. There is no subcutaneous g as. The soft tissue is unremarkable. IMPRESSION: Intact left knee arthroplasty. Reviewed, dictated and finalized at location A.
--- NOTE | ~2021-02-24 | XR_ITS ---
EXAMINATION: XR knee RT min 4V EXAM DATE: 02/24/2021 15:03 INDICATION: Initial encounter following injury, with pain of the right knee. TECHNIQUE: Right knee frontal, crosstable lateral, orthogonal oblique projections for interpretation . Comparison is made to prior examination from 05/23/2019. FINDINGS: There is right meniscal chondrocalcinosis. Chondrocalcinosis can be an age related finding , but with other possible etiologies including CPPD, parathyroid disorders, hemochromatosis, gout. No joint effusion. There is moderate to severe patellofemoral, mild to moderate tibiofemoral primary osteoarthritis. There are no acute fractures identified. No radiopaque foreign bodies identified. IMPRESSION: 1. No acute right knee findings. 2. Advanced patellofemoral compartment osteoarthritis. 3. Chondrocalcinosis. Reviewed, dictated and finalized at location A.
[2021-02-24 14:02] VITALS: BP 158/86; PULSE 75; RESP 18; TEMP 36.5; O2SAT 100
--- NOTE | 2021-02-24 16:09 | ED.GENADULT ---
HPI - General Adult General Chief complaint: Head Injury Stated complaint: fall Source: patient History of Present Illness HPI narrative: Patient is a 86 y/o female brought to ED after a fall. She states that walking to leave the yarsanism after service when she fell. This occurred 1-2 hours ago. She states that she hit her head on concrete floor and bruised both her knee. She recalls going down and did not pass out. She states that her knees have aching pain. She rates her pain as 5/10. Her pain is worse with movement. She also has generalized body ache. She is not sure when her last Tetanus shot was. However, chart review showed her last Tetanus shot was 01/11/19. Related Data Home Medications Medication Instructions Recorded Confirmed acetaminophen [Tylenol Arthritis 650 mg PO Q8H PRN 05/06/20 07/24/20 Pain] calcitriol 0.25 mcg PO 3XW 05/06/20 07/24/20 calcium carbonate [Calcium 600] 600 mg PO BID 05/06/20 07/24/20 aspirin 02/24/21 furosemide [Lasix] 20 mg PO DAILY 02/24/21 Allergies Allergy/AdvReac Type Severity Reaction Status Date / Time succinylcholine Allergy Severe HARD TO Verified 02/24/21 14:07 WAKE UP allopurinol Allergy Unknown Unknown Verified 02/24/21 14:07 celecoxib Allergy Unknown Unknown Verified 02/24/21 14:07 doxycycline Allergy Unknown Unknown Verified 02/24/21 14:07 erythromycin base Allergy Unknown MYCINS Verified 02/24/21 14:07 levofloxacin Allergy Unknown Unknown Verified 02/24/21 14:07 Penicillins Allergy Unknown Unknown Verified 02/24/21 14:07 Sulfa (Sulfonamide Allergy Unknown Unknown Verified 02/24/21 14:07 Antibiotics) Review of Systems Constitutional: Constitutional: Denies chills, Denies fever(s), Reports headache(s) and Denies weakness Eyes: Eyes: Denies blurry vision ENT: Reports headache(s) and Denies neck pain Cardiovascular: Cardiovascular: Denies chest pain and Denies dyspnea Respiratory: Respiratory: Denies cough and Denies dyspnea Gastrointestinal: Gastrointestinal: Denies abdominal pain, Denies diarrhea, Denies nausea and Denies vomiting Genitourinary: Genitourinary: Denies hematuria and Denies dysuria Musculoskeletal: Musculoskeletal: Denies back pain, Reports arthralgias (knee pain) and Denies neck pain Neurologic: Reports headache(s) and Denies weakness PMFSH Past Medical History Medical History Age-related osteoporosis without current pathological fracture Atopic dermatitis Atrial fibrillation Paroxysmal Cerebrovascular disease CVA, old, 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, degenerative, lumbar or lumbosacral DVT (deep venous thrombosis) GERD without esophagitis Gout History of DVT (deep vein thrombosis) History of esophageal dilatation History of unsteady gait Hypertension, essential, benign Lesion of hard palate Lumbar back pain with radiculopathy affecting right lower extremity Lumbar spondylosis Menopausal state Mixed hyperlipidemia Obesity, unspecified (05/26/16) Right anterior knee pain Shingles Slurred speech Stage 3 chronic kidney disease Surgical History Surgical History H/O dilation and curettage History of cataract extraction Hx of total knee arthroplasty Left S/P rotator cuff repair Family History Family History Father Family history of coronary artery disease Hypertension Mother Family history of coronary artery disease Hypertension Sibling Dementia Social History Social History Social History: The patient lives with her daughter. 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 Her son Abel is a durable power admitted attorneys for healthcare. And she desires to be a full code. She denies any alcohol, marijuana, tobacco Nor illicit drugs. Smoking status: Never smoker Second hand
[2021-02-24] MEDS: LIDO 1%/EPINEPHRINE 1:100,000 20 ML VIAL (16:11)
[2021-02-24 16:23] VITALS: BP 160/72; PULSE 80; RESP 16; O2SAT 98
== END 2021-02-24 17:56 | disposition home or self-care (01) ==
PROVIDERS: Emergency Provider Emergency Medicine; PCP Family Medicine
DX: S01.81XA Laceration without foreign body of other part of head, initial encounter (principal); S80.00XA Contusion of unspecified knee, initial encounter; I48.91 Unspecified atrial fibrillation; K21.9 Gastro-esophageal reflux disease without esophagitis; I12.9 Hypertensive chronic kidney disease with stage 1 through stage 4 chronic kidney disease, or unspecified chronic kidney disease; N18.30 Chronic kidney disease, stage 3 unspecified; W01.0XXA Fall on same level from slipping, tripping and stumbling without subsequent striking against object, initial encounter
CPT/HCPCS: 12013; 70450; 72125; 73564; 99284

== ENCOUNTER 2021-04-05 16:00 | Outpatient (CLI) | payer OTHER, SELFPAY ==
--- NOTE | ~2021-04-05 | US_ITS ---
EXAMINATION: US venous doppler [facility] DATE: 04/05/2021 16:36 INDICATION: Left calf pain. TECHNIQUE: Grayscale ultrasound images without and with compression and Doppler ultrasound images of the left lower extremity veins were obtained. COMPARISON: Ultrasound 09/21/2015 FINDINGS: The visualized portions of left common femoral vein, profunda (deep) femoral vein, femoral vein, popl iteal vein, peroneal veins, posterior tibial veins, and greater saphenous vein outflow are patent. IMPRESSION: 1. No deep venous thrombosis. Reviewed, dictated and finalized at location A.
== END 2021-04-05 16:01 | disposition home or self-care (01) ==
PROVIDERS: PCP Family Medicine; Visit Provider Nurse Practitioner Family
DX: M79.605 Pain in left leg (principal); M79.89 Other specified soft tissue disorders
CPT/HCPCS: 93971

== ENCOUNTER → 2021-04-23 17:58 | Outpatient (CLI) | payer OTHER, SELFPAY ==
--- NOTE | ~2021-04-23 | US_ITS ---
EXAMINATION: US soft tissue LE LT DATE: 04/23/2021 18:24 INDICATION: Left lower leg mass. TECHNIQUE: Multiple grayscale and Doppler ultrasound images of the left lower limb were obtained. COMPARISON: Ultrasound 04/05/2021 FINDINGS: In the patient's area of concern in medial left lower leg, there is a thrombosed superficia l vein. IMPRESSION: 1. Thrombosed superficial vein in medial left lower leg. Reviewed, dictated and finalized at location A.
== END ==
PROVIDERS: PCP Family Medicine; Visit Provider Nurse Practitioner Family
DX: M79.89 Other specified soft tissue disorders (principal); I82.812 Embolism and thrombosis of superficial veins of left lower extremity
CPT/HCPCS: 76882

== ENCOUNTER 2022-02-06 15:56 | Outpatient (CLI) | payer OTHER, SELFPAY ==
--- NOTE | ~2022-02-06 | XR_ITS ---
XR sacrum coccyx min 2V DATE: 02/06/2022 16:42 INDICATION: Sacral pain TECHNIQUE: AP, angled AP and lateral views of sacrum and coccyx COMPARISON: None FINDINGS: Severe degenerative disc disease at L2-3, L3-4. Prominent degenerative change at the apophyseal joints of the mid and lower lumbar and lumbosacral ar ea with associated grade 1 anterolisthesis at L4-5. Severe degenerative disc disease and L5-S1. No fracture or bone destruction of the sacrum or coccyx is evident. The sacroiliac joints are intact. Normal alignment at the pubic symphysis with mild osteitis pubis. IMPRESSION: Multilevel degenerative disc disease of the lumbar spine Grade 1 anterolisthesis at L4-5 Mild osteoarthritis pubis No significant abnormality of the sacrum or coccyx Reviewed, dictated and finalized at location A.
--- NOTE | ~2022-02-06 | XR_ITS ---
XR pelvis 1-2V DATE: 02/06/2022 16:41 INDICATION: Posterior pelvic pain for 6 months since fall TECHNIQUE: AP view COMPARISON: None FINDINGS: No pelvic fracture or bone destruction. The sacral iliac joints are intact. Mild osteitis p ubis. Normal alignment at the pubic symphysis. Hip joint spaces are symmetric and relatively preserved. No pelvic fracture or bone destruction. Severe degenerative disc disease at L3-4 and L5-S1. Moderate degenerative disc disease at L4-5. IMPRESSION: Multilevel degenerative disc disease of the lumbar spine Mild osteitis pubis No pelvic fracture or bone destruction Reviewed, dictated and finalized at location A.
== END 2022-02-06 15:57 | disposition home or self-care (01) ==
PROVIDERS: PCP Family Medicine; Visit Provider Nurse Practitioner Family
DX: M53.3 Sacrococcygeal disorders, not elsewhere classified (principal); M51.36 Other intervertebral disc degeneration, lumbar region
CPT/HCPCS: 72170; 72220

== ENCOUNTER 2022-02-06 16:36 | Emergency (ER) | payer OTHER, SELFPAY ==
[2022-02-06] VITALS (10 sets, daily range): BP systolic 134–154; BP diastolic 50–89; PULSE 60–69; RESP 11–25; TEMP 36.7; O2SAT 98–100
--- NOTE | ~2022-02-06 | CT_ITS ---
EXAMINATION: CT brain wo con DATE: 02/06/2022 18:03 INDICATION: Dizziness. Frequent falls. TECHNIQUE: Computed tomography (CT) of the head was performed without intravenous contrast. The mA wa s adjusted according to patient size. Iterative reconstruction technique was employed. Exam dose: 60 5.33 mGy-cm total exam DLP. COMPARISON: None FINDINGS: Prominently calcified dominant left vertebral artery. Prominently calcified bilateral carot id siphon internal carotid arteries. There is nonspecific patchy diminished attenuation of the cerebral white matter, likely due to chroni c small vessel ischemic changes. There is central and cortical cerebral atrophy. No intracranial mass lesion or hemorrhage or recent cerebrovascular accident is detected. No midline shift or mass effect. No subdural or epidural hematoma. There is mild focal thickening along the lateral wall of the right sphenoid sinus. Included paranasal sinuses and mastoid air cells are otherwise unremarkable. No fracture or bone destruction of the cranial vault. IMPRESSION: Cerebral atherosclerosis and chronic small vessel ischemic changes of the cerebral white matter Central and cortical cerebral atrophy No acute intracranial finding Reviewed, dictated and finalized at Location A. Reviewed, dictated and finalized at location A.
--- NOTE | ~2022-02-06 | XR_ITS ---
XR chest 2V DATE: 02/06/2022 18:31 INDICATION: Dizziness TECHNIQUE: AP and lateral views COMPARISON: 02/10/2019 AP chest FINDINGS: conveyor monitor device is noted implanted at the lower anterior medial left chest wall. Borderline heart size. Aortic arch calcification and mild unfolding. No hilar or mediastinal enlargem ent. No pulmonary infiltrate or consolidation, pleural effusion or pulmonary vascular congestion or pneumo thorax is detected. Diffuse osteopenia. There is prominent degenerative spurring of the thoracic spine. IMPRESSION: No active pulmonary disease Aortic atherosclerosis Osteopenia Degenerative spurring of the thoracic spine Reviewed, dictated and finalized at location A.
--- NOTE | 2022-02-06 17:14 | ECG_ITS ---
Measurements Intervals [place] Rate: 58 P: 38 [place]: 148 QRS: 17 QRSD: 86 T: 10 QT: 385 QTc: 378 Interpretive Statements SINUS BRADYCARDIA OTHERWISE NORMAL ECG COMPARED TO ECG 05/06/2020 16:51:00 NO SIGNIFICANT CHANGE Electronically Signed On 02-07-2022 14:31:12 CDT by Jerry Perdomo M.D.
--- NOTE | 2022-02-06 17:29 | ED.DIZZY ---
HPI - Dizziness General Chief Complaint: Dizziness Stated Complaint: DIZZINESS WHILE GETTING XRAY'S Time Seen by Provider: 02/06/22 17:00 History of Present Illness HPI Narrative: 87-year-old female presents to the ER for complaints of dizziness. She came in today for a outpatient x-ray. She started to feel dizzy while she was getting an x-ray taken. She is feeling better now but still does not feel quite back to normal. She denies any chest pain or shortness of breath. She thinks that it may be because its very hot outside and she had to walk across the parking lot. No headache. Denies any extremity weakness or numbness. She says that she felt normal and fine before this happened. She does report that it is a lightheaded sensation. Related Data Home Medications Medication Instructions Recorded Confirmed acetaminophen 650 mg 650 mg PO Q8H PRN Pain, Mild 05/06/20 02/06/22 tablet,extended release (Tylenol Arthritis Pain) calcium carbonate 600 mg calcium 600 mg PO BID 05/06/20 02/06/22 (1,500 mg) tablet (Calcium) Allergies Allergy/AdvReac Type Severity Reaction Status Date / Time succinylcholine Allergy Severe HARD TO Verified 02/06/22 13:07 WAKE UP allopurinol Allergy Unknown Unknown Verified 02/06/22 13:07 celecoxib Allergy Unknown Unknown Verified 02/06/22 13:07 doxycycline Allergy Unknown Unknown Verified 02/06/22 13:07 erythromycin base Allergy Unknown MYCINS Verified 02/06/22 13:07 levofloxacin Allergy Unknown Unknown Verified 02/06/22 13:07 Penicillins Allergy Unknown Unknown Verified 02/06/22 13:07 Sulfa (Sulfonamide Allergy Unknown Unknown Verified 02/06/22 13:07 Antibiotics) Review of Systems Review of Systems: CONSTITUTIONAL: Denies fever, chills, or sweats. EYES: Denies visual changes, redness, or discharge. ENT: Denies rhinorrhea, congestion, sore throat CARDIOVASCULAR: Denies chest pain, palpitations, or edema. RESPIRATORY: Denies cough or dyspnea. GASTROINTESTINAL: Denies abdominal pain, nausea, vomiting, or diarrhea. GENITOURINARY: Denies dysuria or hematuria. SKIN: Denies rash or itching. MUSCULOSKELETAL: Denies back pain, joint pain, or myalgia. NEUROLOGIC: As per HPI PSYCHIATRIC: Denies anxiety or depression. [facility] Past Medical History Medical History Age-related osteoporosis without current pathological fracture DDD (degenerative disc disease), lumbar Disc disease, degenerative, lumbar or lumbosacral GERD without esophagitis Gout History of DVT (deep vein thrombosis) History of esophageal dilatation History of PSVT (paroxysmal supraventricular tachycardia) History of unsteady gait Hypertension, essential, benign Lesion of hard palate Mixed hyperlipidemia Obesity, unspecified (05/26/16) Overactive bladder Personal history of transient ischemic attack (TIA), and cerebral infarction without residual deficits Polyarthralgia Right anterior knee pain Shingles Status post placement of implantable loop recorder Follows with Dr Basurto q 6 months Surgical History Surgical History H/O dilation and curettage History of cataract extraction Hx of total knee arthroplasty Left S/P rotator cuff repair Family History Family History Father Family history of coronary artery disease Hypertension Mother Family history of coronary artery disease Hypertension Sibling Dementia Daughter Breast cancer bilateral mastectomy Social History Social History Social History: The patient lives with her daughter. 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 Her son Abel is a durable power banking attorney for healthcare. And she desires to be a full code. She denies any alcohol, marijuana, tobacco Nor illicit drugs. Smoking status:
[2022-02-06 17:53] LABS: Basophils Percent Auto 0.6 % (0.2-1.2); Eosinophils Absolute Auto 0.1 K/mm3 (0-0.3); Eosinophils Percent Auto 1.6 % (0-4.4); Hematocrit 42.8 % (37.0-47.0); Hemoglobin 13.9 g/dL (12.0-15.0); Immature Granulocyte Absolute 0.01 K/mm3 (0.00-0.031); Immature Granulocyte Percent A 0.2 % (0-0.5); Lymphocytes Absolute Auto 1.78 K/mm3 (0.9-3.2); Lymphocytes Percent Auto 28.9 % (18.3-44.2); Mean Corpuscular HGB Conc 32.5 g/dl (32-36); Mean Corpuscular Hemoglobin 32.9 pg (26-34); Mean Corpuscular Volume 101.2 fl (80-100); Mean Platelet Volume 10.9 fl (7.4-10.4); Monocytes Absolute Auto 0.6 K/mm3 (0.1-0.6); Monocytes Percent Auto 9.1 % (2.6-8.5); Neutrophils Absolute Auto 3.7 K/mm3 (1.3-6.7); Neutrophils Percent Auto 59.6 % (45.5-73.1); Platelet Count Result 158 k/mm3 (150-375); Red Blood Count 4.23 M/mm3 (4.2-5.4); Red Cell Distribution Width 13.2 % (11.5-14.5); White Blood Count 6.2 K/mm3 (4.5-10.0)
[2022-02-06 18:02] LABS: Prothrombin Time 12.7 Seconds (11.1-14.7)
[2022-02-06 18:03] LABS: Alanine Aminotransferase 23 U/L (6-35); Albumin Level 4.3 g/dL (3.5-5.1); Alkaline Phosphatase 169 U/L (38-126); Anion Gap 8 mmol/L (8-16); Aspartate Amino Transferase 36 U/L (14-36); Bilirubin,Total 0.5 mg/dL (0.2-1.3); Blood Urea Nitrogen 24 mg/dL (7-17); Calcium 8.7 mg/dL (8.4-10.2); Carbon Dioxide 25 mmol/L (22-30); Chloride 106 mmol/L (98-107); Estimated CRCL calculation 29 ml/min; Estimated Glomerular Filt Rate 43; Glucose 122 mg/dL (65-110); Partial Thromboplastin Time 27.7 SECONDS (22.3-36.8); Potassium 4.3 mmol/L (3.4-5.0); Sodium 139 mmol/L (137-145)
[2022-02-06 18:09] LABS: Appearance Urine Clear (Clear); Bilirubin Urine Negative (Negative); Blood Urine Negative (Negative); Color Urine Yellow (Yellow); Glucose Urine UA Negative (Negative); Ketones Urine Negative (Negative); Leukocyte Esterase Ur 1+ LEU/UL (Negative); Nitrate Urine Negative (Negative); Protein Urine Negative (Negative); Specific Grav Ur 1.015 (1.001-1.035); Urobilinogen Urine 0.2 mg/dL (<2.0)
[2022-02-06] MEDS: SODIUM CHLORIDE 0.9% IV 500 ML IV CONT (18:11)
[2022-02-06] MEDS: MECLIZINE HCL 25 MG TABLET PO (18:11)
[2022-02-06 18:13] LABS: Squamous Epithelial Cell Urine Few /hpf (Few)
[2022-02-06 18:14] LABS: Add Urine Microscopic? YES
[2022-02-06 18:15] LABS: Troponin I < 0.012 ng/mL (0.000-0.034)
== END 2022-02-06 19:30 | disposition home or self-care (01) ==
PROVIDERS: Emergency Provider Nurse Practitioner Family; PCP Family Medicine
DX: R42 Dizziness and giddiness (principal); N39.0 Urinary tract infection, site not specified; I10 Essential (primary) hypertension; E78.2 Mixed hyperlipidemia; M81.0 Age-related osteoporosis without current pathological fracture; K21.9 Gastro-esophageal reflux disease without esophagitis; M10.9 Gout, unspecified; N32.81 Overactive bladder; E66.9 Obesity, unspecified; Z68.34 Body mass index [BMI] 34.0-34.9, adult; Z86.73 Personal history of transient ischemic attack (TIA), and cerebral infarction without residual deficits; Z86.718 Personal history of other venous thrombosis and embolism; Z98.49 Cataract extraction status, unspecified eye; Z96.652 Presence of left artificial knee joint; R00.1 Bradycardia, unspecified; I67.2 Cerebral atherosclerosis; I70.0 Atherosclerosis of aorta; M85.88 Other specified disorders of bone density and structure, other site
CPT/HCPCS: 36415; 70450; 71046; 72170; 72220; 80053; 81001; 84484; 85025; 85610; 85730; 93005; 96360; 99284; A9270; J7030

== ENCOUNTER 2022-08-29 14:24 | Outpatient (CLI) | payer OTHER, SELFPAY ==
[2022-08-29 20:00] LABS: Basophils Absolute Auto 0.1 K/mm3 (0.0-0.1); Basophils Percent Auto 0.9 % (0.2-1.2); Eosinophils Absolute Auto 0.1 K/mm3 (0-0.3); Eosinophils Percent Auto 1.7 % (0-4.4); Hemoglobin 14.8 g/dL (12.0-15.0); Immature Granulocyte Absolute 0.01 K/mm3 (0.00-0.031); Immature Granulocyte Percent A 0.2 % (0-0.5); Lymphocytes Absolute Auto 1.58 K/mm3 (0.9-3.2); Lymphocytes Percent Auto 24.5 % (18.3-44.2); Mean Corpuscular HGB Conc 32.2 g/dl (32-36); Mean Corpuscular Hemoglobin 32.7 pg (26-34); Mean Corpuscular Volume 101.8 fl (80-100); Mean Platelet Volume 11.2 fl (7.4-10.4); Monocytes Absolute Auto 0.6 K/mm3 (0.1-0.6); Monocytes Percent Auto 8.7 % (2.6-8.5); Neutrophils Absolute Auto 4.1 K/mm3 (1.3-6.7); Platelet Count Result 187 k/mm3 (150-375); Red Blood Count 4.52 M/mm3 (4.2-5.4); Red Cell Distribution Width 13.3 % (11.5-14.5); White Blood Count 6.5 K/mm3 (4.5-10.0)
[2022-08-29 20:14] LABS: Alanine Aminotransferase 24 U/L (6-35); Albumin Level 4.5 g/dL (3.5-5.1); Alkaline Phosphatase 168 U/L (38-126); Anion Gap 8 mmol/L (8-16); Aspartate Amino Transferase 58 U/L (14-36); Bilirubin,Total 0.7 mg/dL (0.2-1.3); Blood Urea Nitrogen 30 mg/dL (7-17); Calcium 9.5 mg/dL (8.4-10.2); Carbon Dioxide 29 mmol/L (22-30); Chloride 102 mmol/L (98-107); Cholesterol 168 mg/dL (0-200); Estimated Glomerular Filt Rate 43; Glucose 84 mg/dL (65-110); HDL Direct 69 mg/dL; Potassium 4.2 mmol/L (3.4-5.0); Sodium 139 mmol/L (137-145); Triglycerides 82 mg/dL (<150)
[2022-08-29 20:25] LABS: LDL Cholesterol Direct 57 mg/dL
[2022-08-29 20:27] LABS: Vitamin D 25 Hydroxy 39.3 ng/mL
== END 2022-08-29 14:25 | disposition home or self-care (01) ==
LOC: ANHGOSHLAB 14:25
PROVIDERS: PCP Family Medicine; Visit Provider Nurse Practitioner Family
DX: Z00.00 Encounter for general adult medical examination without abnormal findings (principal); I10 Essential (primary) hypertension; E55.9 Vitamin D deficiency, unspecified; E78.5 Hyperlipidemia, unspecified
CPT/HCPCS: 36415; 80053; 80061; 82306; 84443; 85025

== ENCOUNTER 2022-12-11 14:07 | Outpatient (CLI) | payer OTHER, SELFPAY ==
--- NOTE | ~2022-12-11 | DEXA_ITS ---
Bone Density Report Name: PEARL DENIS Age: 87 Sex: Female Ethnicity: White Date of : 1935 Indication: postmenopausal; screening for osteoporosis; height loss; Referring Provider: GINA BENNETT Study: Bone densitometry was performed. Exam Date: December 11, 2022 Accession number: [id number] Bone Density: Region BMD T-score Z-score Classification AP Spine(L1, L2, L4) 1.137 0.9 3.8 Normal Femoral Neck (Left) 0.621 -2.1 0.5 Osteopenia Total Hip (Left) 0.837 -0.9 1.5 Normal Femoral Neck (Right) 0.607 -2.2 0.3 Osteopenia Total Hip (Right) 0.794 -1.2 1.1 Osteopenia Total Hip Mean 0.816 -1.1 1.3 Osteopenia World Health Organization criteria for BMD impression classify patients as: Normal (T-score at or above -1.0), Osteopenia (T-score between -1.0 and -2.5), or Osteoporosis (T-score at or below -2.5). 10-year Fracture Risk(1): Major Osteoporotic Fracture 15% Hip Fracture 4.6% Reported Risk Factors: [place] (), Neck BMD=0.607, BMI=36.0 (1) FRAX(R) Version 3.08. Fracture probability calculated for an untreated patient. Fracture probability may be lower if the patient has received treatment. Previous Exams: Region Exam Age BMD T-score BMD Change BMD Change Date g/cm2 vs Baseline vs Previous AP Spine (L1-L2,L4) 12/11/2022 87 1.137 0.9 0.128 (12.7%)# 0.036 (3.3%)* 08/04/2017 82 1.101 0.6 0.092 (9.1%)# 0.077 (7.5%)* 07/11/2015 80 1.024 -0.1 0.015 (1.5%)# 0.015 (1.5%)# 12/12/2011 76 1.008 -0.2 Total Hip(Left) 12/11/2022 87 0.837 -0.9 -0.024 (-2.8%) -0.130 (-13.5% 08/04/2017 82 0.967 0.2 0.106 (12.3%)# 0.012 (1.3%) 07/11/2015 80 0.955 0.1 0.094 (10.9%)# 0.094 (10.9%)# 12/12/2011 76 0.861 -0.7 Total Hip(Right) 12/11/2022 87 0.794 -1.2 -0.258 (-24.5% -0.159 (-16.7% 08/04/2017 82 0.953 0.1 -0.099 (-9.4%) 0.029 (3.2%)* 07/11/2015 80 0.924 -0.2 -0.129 (-12.2% -0.129 (-12.2% 12/12/2011 76 1.052 0.9 *Denotes significance at 95% confidence level, LSC for AP Spine = 0.022 g/cm2, LSC for Total Hip = 0.027 g/cm2 # Denotes dissimilar scan types or analysis methods Clinical Information Provided by Patient: Has used the following medications: Calcium Patient maximum height was 62 No regular weight bearing exercise Drinks caffeinated beverages Onset of menses at age 16 Number of children 4 Impression: The patient has low bone mass,
--- NOTE | ~2022-12-11 | MM_ITS ---
EXAMINATION: MM screening jaret BI w ceasar HISTORY: Screening mammogram, family history of breast cancer in her daughter. TECHNIQUE: Craniocaudal and mediolateral oblique 3-D tomosynthesis images were obtained and synthetic 2-D images were generated. CAD analysis was submitted and interpreted. COMPARISON: Prior mammograms dating back to 06/20/2013 BREAST PARENCHYMAL COMPOSITION: There are scattered areas of fibroglandular density. FINDINGS: Again seen are multiple small stable masses in the breasts, considered benign given the lac k of interval change. No suspicious mass, calcification, or architectural distortion are identified i n either breast to suggest malignancy. There has been no suspicious interval change. IMPRESSION: 1. No mammographic evidence of malignancy. 2. Recommend routine screening mammography while the patient remains in good health. BI-RADS Category 2: Benign finding(s). Reviewed, dictated and finalized at location A. IMPRESSION: 1. No mammographic evidence of malignancy. 2. Recommend routine screening mammography while the patient remains in good he alth. BI-RADS Category 2: Benign finding(s).
== END 2022-12-11 14:08 | disposition home or self-care (01) ==
PROVIDERS: PCP Family Medicine; Visit Provider Nurse Practitioner Family
DX: Z12.31 Encounter for screening mammogram for malignant neoplasm of breast (principal); M85.9 Disorder of bone density and structure, unspecified; Z78.0 Asymptomatic menopausal state
CPT/HCPCS: 77063; 77067; 77080

== ENCOUNTER 2023-02-02 16:22 | Emergency (ER) | payer OTHER, SELFPAY ==
[2023-02-02] VITALS (16 sets, daily range): BP systolic 104–150; BP diastolic 54–60; PULSE 75–89; RESP 16–30; TEMP 36.6; O2SAT 89–98
--- NOTE | ~2023-02-02 | CT_ITS ---
EXAMINATION: CT abdomen pelvis w con DATE: 02/02/2023 17:32 INDICATION: abdominal pain TECHNIQUE: Computed tomography (CT) of the abdomen and pelvis was performed with 100 mL Omnipaque-350 intravenous contrast. Automated exposure control and iterative reconstruction technique were employe d. The dose-length product was 1352.56 mGy-cm. COMPARISON: 05/20/2013. FINDINGS: Lower thorax: Senescent changes in the lungs. Small fat-containing right diaphragmatic hernia. Aortic , mitral, and coronary artery calcification Liver: Enlarged, otherwise normal. Biliary/Gallbladder: Gallbladder is normal. No bile duct dilation. Pancreas: No mass or duct dilation. Fatty atrophy. Spleen: Normal. Adrenals:No mass. Kidneys: Bilateral cortical thinning and atrophy. No mass, stone, or hydronephrosis. GI tract: No small or large bowel dilation. Normal appendix. Diverticulosis without diverticulitis. Mesentery/Peritoneum: No ascites, mass, or free air. Retroperitoneum: No mass. Atherosclerotic abdominal aortic and/or arterial calcifications. Pelvis: Pelvic organs are within normal limits. Soft Tissues: Soft tissues and body wall unremarkable. Bones: No acute osseous finding. IMPRESSION: Hepatomegaly, otherwise negative CT abdomen and pelvis findings Reviewed, dictated and finalized at location K.
--- NOTE | 2023-02-02 16:29 | ECG_ITS ---
Measurements Intervals [place] Rate: 80 P: 52 AL: 136 QRS: 22 QRSD: 86 T: 13 QT: 328 QTc: 379 Interpretive Statements SINUS RHYTHM BASELINE ARTIFACT POSSIBLE LEFT ATRIAL ENLARGEMENT BORDERLINE ECG COMPARED TO ECG 02/06/2022 17:21:02 SINUS RHYTHM NOW PRESENT Electronically Signed On 02-02-2023 17:21:05 CDT by Jam Waterman M.D.
[2023-02-02 16:45] LABS: Basophils Percent Auto 0.3 % (0.2-1.2); Eosinophils Absolute Auto 0.1 K/mm3 (0-0.3); Eosinophils Percent Auto 0.5 % (0-4.4); Hematocrit 41.5 % (37.0-47.0); Hemoglobin 13.7 g/dL (12.0-15.0); Immature Granulocyte Absolute 0.03 K/mm3 (0.00-0.031); Immature Granulocyte Percent A 0.3 % (0-0.5); Lymphocytes Percent Auto 16.8 % (18.3-44.2); Mean Corpuscular Hemoglobin 32.9 pg (26-34); Mean Corpuscular Volume 99.8 fl (80-100); Mean Platelet Volume 10.3 fl (7.4-10.4); Monocytes Absolute Auto 0.8 K/mm3 (0.1-0.6); Monocytes Percent Auto 8.2 % (2.6-8.5); Neutrophils Absolute Auto 7.1 K/mm3 (1.3-6.7); Neutrophils Percent Auto 73.9 % (45.5-73.1); Platelet Count Result 154 k/mm3 (150-375); Red Blood Count 4.16 M/mm3 (4.2-5.4); Red Cell Distribution Width 13.3 % (11.5-14.5); White Blood Count 9.5 K/mm3 (4.5-10.0)
[2023-02-02 16:57] LABS: Alanine Aminotransferase 21 U/L (6-35); Albumin Level 4.2 g/dL (3.5-5.1); Alkaline Phosphatase 157 U/L (38-126); Anion Gap 8 mmol/L (8-16); Aspartate Amino Transferase 34 U/L (14-36); Blood Urea Nitrogen 22 mg/dL (7-17); Calcium 9.7 mg/dL (8.4-10.2); Carbon Dioxide 27 mmol/L (22-30); Chloride 101 mmol/L (98-107); Estimated Glomerular Filt Rate 59; Glucose 99 mg/dL (65-110); Potassium 4.1 mmol/L (3.4-5.0); Sodium 136 mmol/L (137-145)
[2023-02-02] MEDS: ONDANSETRON INJ 4 MG/2 ML VIAL IV PUSH (17:13)
[2023-02-02] MEDS: MORPHINE SULFATE (*CRX) 4 MG/ML INJ IV PUSH (17:13)
[2023-02-02] MEDS: SODIUM CHLORIDE 0.9% IV 1,000 ML 150 ML IV CONT (17:15)
[2023-02-02 18:32] LABS: Appearance Urine Clear (Clear); Bilirubin Urine Negative (Negative); Blood Urine Negative (Negative); Color Urine Yellow (Yellow); Glucose Urine UA Negative (Negative); Ketones Urine Negative (Negative); Leukocyte Esterase Ur Negative LEU/UL (Negative); Nitrate Urine Negative (Negative); Protein Urine Negative (Negative); Specific Grav Ur 1.017 (1.001-1.035); Urobilinogen Urine 0.2 mg/dL (<2.0); pH Urine 5.5 (5.0-9.0)
[2023-02-02 18:40] LABS: Add Urine Microscopic? NO
[2023-02-02 19:29] LABS: Troponin I < 0.012 ng/mL (0.000-0.034)
--- NOTE | 2023-02-02 19:40 | ED.GENADULT ---
HPI - General Adult General Chief complaint: Urogenital-Female Stated complaint: r. flank pain Time Seen by Provider: 02/02/23 16:26 Source: patient and family Mode of arrival: wheelchair Limitations: no limitations History of Present Illness HPI narrative: 88-year-old with a history of hypertension, DJD, osteoporosis here with complaints of right flank pain radiating into right upper abdomen since early this morning. She denies any chest pain or shortness of breath. No history of fever or chills. Denies nausea, vomiting. Onset (ago): day(s) (1) Severity: moderate Pain Consistency: constant Associated symptoms: denies other symptoms Related Data Home Medications Medication Instructions Recorded Confirmed acetaminophen 650 mg 650 mg PO Q8H PRN Pain, Mild 05/06/20 01/15/23 tablet,extended release (Tylenol Arthritis Pain) calcium carbonate 600 mg calcium 600 mg PO BID 05/06/20 01/15/23 (1,500 mg) tablet (Calcium) vibegron 75 mg tablet (Gemtesa) 75 mg PO DAILY 08/29/22 01/15/23 Allergies Allergy/AdvReac Type Severity Reaction Status Date / Time succinylcholine Allergy Severe HARD TO Verified 01/15/23 12:57 WAKE UP allopurinol Allergy Unknown Unknown Verified 01/15/23 12:57 celecoxib Allergy Unknown Not Unverified 01/27/23 09:28 Entered,Unknown doxycycline Allergy Unknown Not Unverified 01/27/23 09:28 Entered,Unknown erythromycin base Allergy Unknown MYCINS Verified 01/15/23 12:57 levofloxacin Allergy Unknown Rash,Unknow Unverified 01/27/23 09:28 n Penicillins Allergy Unknown Not Unverified 01/27/23 09:28 Entered,Unknown Sulfa (Sulfonamide Allergy Unknown Not Unverified 01/27/23 09:28 Antibiotics) Entered,Unknown Review of Systems Review of Systems: All systems reviewed & are unremarkable except as noted in HPI and below Constitutional: Constitutional: Reports no additional constitutional complaints Eyes: Eyes: Reports no additional eye complaints ENT: Reports system reviewed and no additional complaints, except as documented Cardiovascular: Cardiovascular: Reports no additional cardiovascular complaints Respiratory: Respiratory: Reports no additional respiratory complaints Gastrointestinal: Gastrointestinal: Reports as per HPI Musculoskeletal: Musculoskeletal: Reports no additional musculoskeletal complaints PMFSH Past Medical History Medical History Age-related osteoporosis without current pathological fracture DDD (degenerative disc disease), lumbar Disc disease, degenerative, lumbar or lumbosacral GERD without esophagitis Gout History of DVT (deep vein thrombosis) History of esophageal dilatation History of PSVT (paroxysmal supraventricular tachycardia) History of unsteady gait Hypertension, essential, benign Lesion of hard palate Mixed hyperlipidemia Obesity, unspecified (05/26/16) Overactive bladder Personal history of transient ischemic attack (TIA), and cerebral infarction without residual deficits Polyarthralgia Right anterior knee pain Shingles Status post placement of implantable loop recorder Follows with Dr Basurto q 6 months Surgical History Surgical History H/O dilation and curettage History of cataract extraction Hx of total knee arthroplasty Left S/P rotator cuff repair Family History Family History Father Family history of coronary artery disease Hypertension Mother Family history of coronary artery disease Hypertension Sibling Dementia Daughter Breast cancer bilateral mastectomy Social History Social History Social History: The patient lives with her daughter. 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 Her son Abel is a durable power assistant district attorney for healthcare. And she bri
--- NOTE | 2023-02-05 11:14 | PC.NURSE ---
Late entry note: NS fluid bolus stopped at 1999 on 02/02.
== END 2023-02-02 20:00 | disposition home or self-care (01) ==
PROVIDERS: Emergency Provider Family Medicine; PCP Family Medicine
DX: M54.9 Dorsalgia, unspecified (principal); I10 Essential (primary) hypertension; K21.9 Gastro-esophageal reflux disease without esophagitis; E78.2 Mixed hyperlipidemia; N32.81 Overactive bladder; M51.36 Other intervertebral disc degeneration, lumbar region; M10.9 Gout, unspecified; M81.0 Age-related osteoporosis without current pathological fracture; E66.9 Obesity, unspecified; Z68.34 Body mass index [BMI] 34.0-34.9, adult; Z96.652 Presence of left artificial knee joint; Z86.73 Personal history of transient ischemic attack (TIA), and cerebral infarction without residual deficits; Z86.718 Personal history of other venous thrombosis and embolism; Z98.49 Cataract extraction status, unspecified eye; R94.31 Abnormal electrocardiogram [ECG] [EKG]; R16.0 Hepatomegaly, not elsewhere classified
CPT/HCPCS: 36415; 74177; 80053; 81003; 84484; 85025; 93005; 96361; 96374; 96375; 99284; J2270; J2405; J7030; Q9967

== ENCOUNTER 2023-03-28 10:45 | Emergency (ER) | payer OTHER, SELFPAY ==
[2023-03-28 10:59] VITALS: BP 127/75; PULSE 71; RESP 16; TEMP 36.6; O2SAT 100
--- NOTE | 2023-03-28 11:06 | ED.FEMALEGU ---
HPI - Female Genitourinary General Chief complaint: Urogenital-Female Stated complaint: Uterus pain Source: patient and RN notes reviewed Mode of arrival: ambulatory Limitations: no limitations History of Present Illness HPI Narrative: 88 y/o female with hx OAB presented for c/o burning with urination and low abdominal pressure for a couple of days. Endorses chronic urinary frequency and incontinence, but states both have been worse the past few days. Nocturia x2 each night. Denies hematuria, flank pain, n/v/d/f/c. Related Data Home Medications Medication Instructions Recorded Confirmed acetaminophen 650 mg 650 mg PO Q8H PRN Pain, Mild 05/06/20 03/28/23 tablet,extended release (Tylenol Arthritis Pain) calcium carbonate 600 mg calcium 600 mg PO BID 05/06/20 03/28/23 (1,500 mg) tablet (Calcium) vibegron 75 mg tablet (Gemtesa) 75 mg PO DAILY 08/29/22 03/28/23 Allergies Allergy/AdvReac Type Severity Reaction Status Date / Time succinylcholine Allergy Severe HARD TO Verified 03/28/23 11:10 WAKE UP allopurinol Allergy Unknown Unknown Verified 03/28/23 11:10 celecoxib Allergy Unknown Not Unverified 03/28/23 11:10 Entered,Unknown doxycycline Allergy Unknown Not Unverified 03/28/23 11:10 Entered,Unknown erythromycin base Allergy Unknown MYCINS Verified 03/28/23 11:10 levofloxacin Allergy Unknown Rash,Unknow Unverified 03/28/23 11:10 n Penicillins Allergy Unknown Not Unverified 03/28/23 11:10 Entered,Unknown Sulfa (Sulfonamide Allergy Unknown Not Unverified 03/28/23 11:10 Antibiotics) Entered,Unknown Review of Systems Review of Systems: CONSTITUTIONAL: Denies body aches, fever, chills, or sweats. CARDIOVASCULAR: Denies chest pain, palpitations, or edema. RESPIRATORY: Denies cough or dyspnea. GASTROINTESTINAL: Denies abdominal pain, nausea, vomiting, or diarrhea. GENITOURINARY: Reports dysuria, frequency, denies urgency, hematuria, flank pain SKIN: Denies rash, itching, or wounds. MUSCULOSKELETAL: Denies back pain or myalgia. [facility] Past Medical History Medical History Age-related osteoporosis without current pathological fracture Anemia Cough DDD (degenerative disc disease), lumbar Disc disease, degenerative, lumbar or lumbosacral GERD without esophagitis Gout History of DVT (deep vein thrombosis) History of esophageal dilatation History of PSVT (paroxysmal supraventricular tachycardia) History of unsteady gait Hypertension, essential, benign Lesion of hard palate Mixed hyperlipidemia Obesity, unspecified (05/26/16) Overactive bladder Personal history of transient ischemic attack (TIA), and cerebral infarction without residual deficits Polyarthralgia Right anterior knee pain Shingles Status post placement of implantable loop recorder Follows with Dr Basurto q 6 months Surgical History Surgical History H/O dilation and curettage History of cataract extraction Hx of total knee arthroplasty Left S/P rotator cuff repair Family History Family History Father Family history of coronary artery disease Hypertension Mother Family history of coronary artery disease Hypertension Sibling Dementia Daughter Breast cancer bilateral mastectomy Social History Social History Social History: The patient lives with her daughter. 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 Her son Abel is a durable power insurance defense attorney for healthcare. And she desires to be a full code. She denies any alcohol, marijuana, tobacco Nor illicit drugs. Smoking status: Never smoker Second hand tobacco smoke exposure: No Alcohol intake: former Substance use: never Substance use type: does not use Lack of Transportation: No Lack of
== END 2023-03-28 11:34 | disposition home or self-care (01) ==
PROVIDERS: Emergency Provider Nurse Practitioner Family; PCP Family Medicine
DX: N39.0 Urinary tract infection, site not specified (principal); B96.20 Unspecified Escherichia coli [E. coli] as the cause of diseases classified elsewhere; M51.36 Other intervertebral disc degeneration, lumbar region; K21.9 Gastro-esophageal reflux disease without esophagitis; M10.9 Gout, unspecified; Z86.718 Personal history of other venous thrombosis and embolism; I10 Essential (primary) hypertension; E78.2 Mixed hyperlipidemia; E66.9 Obesity, unspecified; Z68.30 Body mass index [BMI] 30.0-30.9, adult; N32.81 Overactive bladder; Z96.652 Presence of left artificial knee joint; M81.0 Age-related osteoporosis without current pathological fracture
CPT/HCPCS: 81003; 87077; 87086; 87186; 99213; G0463

== ENCOUNTER 2023-04-08 11:27 | Outpatient (CLI) | payer OTHER, SELFPAY | END 2023-04-08 11:28 | disposition home or self-care (01) | LOC: ANHGOSHLAB 11:29 | PROVIDERS: PCP Family Medicine; Visit Provider Nurse Practitioner Family | DX: R30.0 Dysuria (principal) | CPT/HCPCS: 87077; 87086; 87186 ==

== ENCOUNTER 2023-05-24 13:57 | Observation (INO) | payer OTHER, SELFPAY ==
[2023-05-24] VITALS (15 sets, daily range): BP systolic 127–164; BP diastolic 46–136; PULSE 66–109; RESP 11–23; TEMP 36.1–36.6; O2SAT 89–100; BMI 34.4
--- NOTE | ~2023-05-24 | XR_ITS ---
MODIFIED ESOPHAGRAM HISTORY: Difficulty swallowing TECHNIQUE: Modified barium esophagram was performed on 05/26/2023. I administered fluoroscopy and perf ormed the exam with speech pathologist. Patient was seated for lateral fluoroscopic imaging for tony stion of thin liquids, pudding, solids and quantified amounts, followed by thin liquids in uncontroll ed amounts. This was recorded on tape. A single fluoroscopic spot image was also recorded. The DAP fo r this procedure was 0.835 Gycm2. The amount of fluoroscopy time used during this procedure was 1.1 m inutes. FINDINGS: Oral stage: Adequate function. Pharyngeal stage: Adequate function. Cervical/esophageal stage: Adequate function. IMPRESSION: Patient tolerated regular consistency oral feedings in the upright position. Please svetlana elate with speech pathologist findings and specific feeding recommendations. Reviewed, dictated and finalized at location A. IMPRESSION: Patient tolerated regular consistency oral feedings in the upright position. Please correlate with speech pathologist findings and specific feedi ng recommendations.
--- NOTE | ~2023-05-24 | XR_ITS ---
EXAMINATION: XR chest 1V portable Exam Date/Time: 05/24/2023 14:30 CDT HISTORY: CVA Comparison: 02/06/2022. RESULT: Lines, tubes, and devices: Loop recorder. Lungs and pleura: Increased diffuse reticular opacities. Senescent changes. Streaky bibasilar scar/a telectasis. Cardiomediastinal silhouette: Stable. Other: No acute osseous or upper abdominal finding. IMPRESSION: Mild interstitial edema. Reviewed, dictated and finalized at location K. IMPRESSION: Mild interstitial edema.
--- NOTE | ~2023-05-24 | MR_ITS ---
EXAMINATION: MR brain/brain stem wo/w con DATE: 05/25/2023 08:58 INDICATION: Cerebrovascular accident. Speech deficit. Right hand loss of dexterity. TECHNIQUE: Magnetic resonance imaging (MRI) of the brain and brainstem was performed without and with 15 mL MultiHance intravenous contrast. COMPARISON: Brain MRI 05/07/2020, head CT 05/24/2023 FINDINGS: There are scattered areas of nonspecific increased T2-weighted signal intensity in the cere bral white matter and nito. There are old infarcts involving the left basal ganglia and bilateral rusty lami. There is no intracranial hemorrhage, acute infarction, or abnormal intracranial mass lesion. Th e ventricles are normal in size. There are likely changes of ocular lens replacement surgeries. There is a mucous retention cyst in sphenoid sinus. The mastoid air cells are normal. IMPRESSION: 1. Old infarcts involving the left basal ganglia and bilateral thalami. 2. Moderate nonspecific cerebral white matter disease and pontine disease, which likely represents ch ronic small vessel ischemic disease. Reviewed, dictated and finalized at location E. IMPRESSION: 1. Old infarcts involving the left basal ganglia and bilateral thalami. 2. Moderate nonspecific cerebral white matter disease and pontine disease, whic h likely represents chronic small vessel ischemic disease.
--- NOTE | ~2023-05-24 | CT_ITS ---
EXAMINATION: CT brain wo con DATE: 05/24/2023 14:18 INDICATION: CVA, APHASIA . TECHNIQUE: Computed tomography (CT) of the head was performed without intravenous contrast. The mA wa s adjusted according to patient size. Iterative reconstruction technique was employed. The dose-lengt h product was 605.33 mGy-cm. COMPARISON: 02/06/2022. FINDINGS: No acute intracranial hemorrhage or extra-axial fluid collection. No hydrocephalus, mass, or herniation. No acute ischemic infarct. Unremarkable dural venous sinus attenuation. No acute osseous abnormality. Right sphenoid retention cyst/polyp, the remaining aerated spaces are clear. Moderate atrophy and chronic white matter change. Atherosclerotic intracranial calcification. Bilater al lens replacements. Old focal bilateral lacunar and possible pontine infarct. IMPRESSION: No acute intracranial process. Reviewed, dictated and finalized at location K.
--- NOTE | ~2023-05-24 | CT_ITS ---
EXAMINATION: CTA brain carotid DATE: 05/24/2023 14:29 INDICATION: CVA TECHNIQUE: Computed tomographic angiography (CTA) of the head and neck was performed with 100 mL Omni paque-350 intravenous contrast. Automated exposure control and iterative reconstruction technique wer e employed. . The dose-length product was 1049.73 mGy-cm. Maximum intensity projection and volume re ndered 3D-reconstructions were created by the technologist on a separate workstation. COMPARISON: CT brain, same date CTA brain carotid 05/06/2020. FINDINGS: CTA HEAD: No large vessel occlusion, aneurysm, high flow vascular malformation, nidus or extravasation. Hypopla stic/absent right A1 segment. Both anterior cerebral arteries take their origin from the left-sided s ystem. The right vertebral artery terminates in the right posterior inferior cerebellar artery, a nor mal variant. Calcification of the left V4 segment, without significant stenosis. Patent cerebral vein s. Bilateral basal ganglia and possible pontine lacunar infarcts, otherwise normal/symmetric parenchy mal enhancement. CTA NECK: Aortic arch and proximal great vessels: Bovine arch. Mild arch calcification Right common carotid, carotid bifurcation, and internal carotid artery: Calcified plaque at the bifur cation.There is 42% stenosis of the proximal right internal carotid artery relative to normal distal artery lumen diameter (NASCET criteria). Left common carotid, carotid bifurcation, and internal carotid artery: No significant plaque.There is 0% stenosis of the proximal left internal carotid artery relative to normal distal artery lumen diam eter (NASCET criteria). Vertebral arteries: No significant plaque or stenosis. Left vertebral artery is dominant. Other findings: None. Subcentimeter thyroid hypodensities which require no additional evaluation at t his time. IMPRESSION: No acute large vessel occlusion. 42% stenosis of the proximal right internal carotid artery. Reviewed, dictated and finalized at location K.
--- NOTE | 2023-05-24 14:13 | ECG_ITS ---
Measurements Intervals Coram Rate: 81 P: 66 HI: 141 QRS: 26 QRSD: 85 T: 32 QT: 361 QTc: 419 Interpretive Statements SINUS RHYTHM WITH FREQUENT SUPRAVENTRICULAR PREMATURE COMPLEXES IN A BIGEMINAL POSSIBLE LEFT ATRIAL ENLARGEMENT [-0.1mV P WAVE IN V1/V2] ABNORMAL RHYTHM ECG COMPARED TO ECG 02/02/2023 16:31:49 ATRIAL BIGEMINY IS NOW PRESENT Electronically Signed On 05-25-2023 13:26:11 CDT by Jerry Perdomo M.D.
[2023-05-24 14:30] LABS: Estimated Glomerular Filt Rate 43
[2023-05-24 14:51] LABS: Basophils Absolute Auto 0.1 K/mm3 (0.0-0.1); Eosinophils Absolute Auto 0.2 K/mm3 (0-0.3); Eosinophils Percent Auto 3.2 % (0-4.4); Hematocrit 42.7 % (37.0-47.0); Immature Granulocyte Absolute 0.03 K/mm3 (0.00-0.031); Immature Granulocyte Percent A 0.5 % (0-0.5); Lymphocytes Absolute Auto 1.71 K/mm3 (0.9-3.2); Lymphocytes Percent Auto 28.4 % (18.3-44.2); Mean Corpuscular HGB Conc 32.8 g/dl (32-36); Mean Corpuscular Hemoglobin 32.3 pg (26-34); Mean Corpuscular Volume 98.4 fl (80-100); Mean Platelet Volume 11.1 fl (7.4-10.4); Monocytes Absolute Auto 0.5 K/mm3 (0.1-0.6); Monocytes Percent Auto 8.3 % (2.6-8.5); Neutrophils Absolute Auto 3.5 K/mm3 (1.3-6.7); Neutrophils Percent Auto 58.6 % (45.5-73.1); Platelet Count Result 165 k/mm3 (150-375); Red Blood Count 4.34 M/mm3 (4.2-5.4)
[2023-05-24 15:03] LABS: Alanine Aminotransferase 19 U/L (6-35); Albumin Level 4.2 g/dL (3.5-5.1); Alkaline Phosphatase 150 U/L (38-126); Anion Gap 8 mmol/L (8-16); Aspartate Amino Transferase 29 U/L (14-36); Bilirubin,Total 0.6 mg/dL (0.2-1.3); Blood Urea Nitrogen 29 mg/dL (7-17); Calcium 9.3 mg/dL (8.4-10.2); Carbon Dioxide 23 mmol/L (22-30); Chloride 106 mmol/L (98-107); Estimated Glomerular Filt Rate 43; Glucose 96 mg/dL (65-110); Potassium 4.3 mmol/L (3.4-5.0); Sodium 137 mmol/L (137-145)
[2023-05-24 15:05] LABS: INR 1.1; Prothrombin Time 14.2 Seconds (11.1-14.7)
[2023-05-24 15:06] LABS: Partial Thromboplastin Time 29.8 SECONDS (22.3-36.8)
[2023-05-24 15:13] LABS: Troponin I < 0.012 ng/mL (0.000-0.034)
--- NOTE | 2023-05-24 15:20 | ED.NEUROSD ---
HPI - Neuro Symptoms/Deficit General Chief Complaint: Neuro Symptoms/Deficit Stated Complaint: speech slurred at 1300 Time Seen by Provider: 05/24/23 14:11 Source: patient and family Mode of arrival: ambulatory Limitations: no limitations History of Present Illness HPI Narrative: Patient is 88 years old white female came from home by private car with her daughter. The daughter is telling me that patient woke up this morning with the slurred the speech. Denies any weakness, numbness or any other symptoms. History of TIAs, hypertension. Patient is not on aspirin, currently on Plavix. She denies any fever, chills, nausea, vomiting, trouble swallowing, or vision abnormality. Patient still me that she have history of Alzheimer. Patient currently is awake, alert oriented x3, Related Data Home Medications Medication Instructions Recorded Confirmed acetaminophen 650 mg 650 mg PO Q8H PRN Pain, Mild 05/06/20 05/04/23 tablet,extended release (Tylenol Arthritis Pain) calcium carbonate 600 mg calcium 600 mg PO BID 05/06/20 05/04/23 (1,500 mg) tablet (Calcium) vibegron 75 mg tablet (Gemtesa) 75 mg PO DAILY 08/29/22 05/04/23 Allergies Allergy/AdvReac Type Severity Reaction Status Date / Time succinylcholine Allergy Severe HARD TO Verified 04/08/23 11:01 WAKE UP allopurinol Allergy Unknown Unknown Verified 04/08/23 11:01 celecoxib Allergy Unknown Not Unverified 04/08/23 11:01 Entered,Unknown doxycycline Allergy Unknown Not Unverified 04/08/23 11:01 Entered,Unknown erythromycin base Allergy Unknown MYCINS Verified 04/08/23 11:01 levofloxacin Allergy Unknown Rash,Unknow Unverified 04/08/23 11:01 n Penicillins Allergy Unknown Not Unverified 04/08/23 11:01 Entered,Unknown Sulfa (Sulfonamide Allergy Unknown Not Unverified 04/08/23 11:01 Antibiotics) Entered,Unknown Review of Systems Review of Systems: All systems reviewed & are unremarkable except as noted in HPI and below PMFSH Past Medical History Medical History Age-related osteoporosis without current pathological fracture Anemia Cough DDD (degenerative disc disease), lumbar Disc disease, degenerative, lumbar or lumbosacral GERD without esophagitis Gout History of DVT (deep vein thrombosis) History of esophageal dilatation History of PSVT (paroxysmal supraventricular tachycardia) History of unsteady gait Hypertension, essential, benign Lesion of hard palate Mixed hyperlipidemia Obesity, unspecified (05/26/16) Overactive bladder Personal history of transient ischemic attack (TIA), and cerebral infarction without residual deficits Polyarthralgia Right anterior knee pain Shingles Status post placement of implantable loop recorder Follows with Dr Basurto q 6 months Surgical History Surgical History H/O dilation and curettage History of cataract extraction Hx of total knee arthroplasty Left S/P rotator cuff repair Family History Family History Father Family history of coronary artery disease Hypertension Mother Family history of coronary artery disease Hypertension Sibling Dementia Daughter Breast cancer bilateral mastectomy Social History Social History Social History: The patient lives with her daughter. 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 Her son Abel is a durable power attorney lawyer for healthcare. And she desires to be a full code. She denies any alcohol, marijuana, tobacco Nor illicit drugs. Smoking status: Never smoker Second hand tobacco smoke exposure: No Alcohol intake: former Substance use: never Substance use type: does not use Lack of Transportation: No Lack of Food: Never True Current Housing: I Have Housing Concerned About Future Housing: No Di
[2023-05-24] MEDS: ASPIRIN 81 MG CHEWABLE TABLET 324 MG PO (15:55)
[2023-05-24 15:56] LABS: Appearance Urine Clear (Clear); Bacteria Urine None Seen /hpf; Bilirubin Urine Negative (Negative); Blood Urine Trace (Negative); Color Urine Yellow (Yellow); Glucose Urine UA Negative (Negative); Ketones Urine Negative (Negative); Leukocyte Esterase Ur Negative LEU/UL (Negative); Nitrate Urine Negative (Negative); Non Pathogenic Casts 0-2; Protein Urine Negative (Negative); RBC Urine 0-2 /hpf (0-2); Squamous Epithelial Cell Urine None seen /hpf (Few); Urobilinogen Urine 0.2 mg/dL (<2.0); WBC Urine 0-5 /hpf
[2023-05-24 16:19] LABS: Cocaine Screen Urine Negative (Negative); Opiate Screen Urine Negative (Negative)
[2023-05-24 16:26] LABS: Add Urine Microscopic? YES
[2023-05-24 16:29] LABS: Phencyclidine Screen Urine Negative (Negative)
[2023-05-24 16:31] LABS: Barbiturate Screen Urine Negative (Negative); Benzodiazepines Screen Urine Negative (Negative)
[2023-05-24 16:32] LABS: Amphetamine Screen Urine Negative (Negative); Cannabinoid Screen Urine Negative (Negative)
[2023-05-24 16:47] LABS: Methadone Screen Urine Negative (Negative)
--- NOTE | 2023-05-24 17:10 | ADMGEN ---
This patient, Sandra Stein, was admitted to Medical Room 243-01. Patient/family oriented to hospital policies and general routines including ID bracelet, bed and alarms, visiting hours, pain management, procedures, bathroom and other care routines, personal items, smoking policy, room service/diet, and visiting hours. Information on how to activate the Rapid Response Team has been discussed. Patient/Family are encouraged to report perceived risks to care and to ask questions if they do not understand what they are told or what they should do.
--- NOTE | 2023-05-24 18:18 | PM.IMHP ---
H&P: HPI History of Present Illness Date/Time: 05/24/23 18:18 Chief Complaint: Dysarthria Narrative: 88-year-old female presents here with search speech and word-finding difficulty with past medical history of anemia, DDD, GERD, DVT, paroxysmal supraventricular tachycardia, HTN, HLD, lesion of hard palate, TIA, CVA with residual deficits of right hand loss of dexterity. Patient reports waking up at 8:30 a.m. She got up and ate breakfast without difficulty, ambulated without difficulty, and felt like her normal self. A little after 10:00 a.m., patient called her sister when she noticed that she had word-finding difficulty, slurred speech, stuttering. Patient does note that before the phone call, she did not speak so she did not notice the change. LKN last night at 10:00 p.m. by daughter. Patient has some baseline confusion, currently alert and orientated. She also reports chronic UTI, has been treated with 4 rounds of antibiotics, and follows with urology. Last saw them 1 week ago for UTI treatment. Finished antibiotics on Thursday. Continues to complain of dysuria. Denies hematuria, odor. Previous urine culture grew E coli. During the course of this chronic UTI, patient has developed diarrhea. No change in color or foul odor beyond usual. Review of Systems Review of Systems: Patient denies headache, dizziness, nausea, drooling. No difficulty with eating or drinking. No change in ambulation. All systems reviewed & are unremarkable except as noted in HPI and below PMFSH Past Medical History Medical History (Updated 05/25/23 @ 00:58 by Layne Burton APRN) Age-related osteoporosis without current pathological fracture Anemia Class 1 obesity with body mass index (BMI) of 31.0 to 31.9 in adult Cough Degenerative disc disease GERD without esophagitis Gout History of cerebrovascular accident Loss of right hand dexterity History of DVT (deep vein thrombosis) History of esophageal dilatation History of PSVT (paroxysmal supraventricular tachycardia) History of unsteady gait Hypertension, essential, benign Lesion of hard palate Mixed hyperlipidemia Overactive bladder Personal history of transient ischemic attack (TIA), and cerebral infarction without residual deficits Polyarthralgia Shingles Status post placement of implantable loop recorder Follows with Dr Basurto q 6 months Surgical History Surgical History H/O dilation and curettage History of cataract extraction Hx of total knee arthroplasty Left S/P rotator cuff repair Family History Family History Father Family history of coronary artery disease Hypertension Mother Family history of coronary artery disease Hypertension Sibling Dementia Daughter Breast cancer bilateral mastectomy Social History Social History Social History: The patient lives with her daughter. 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 Her son Abel is a durable power commercial attorney for healthcare. And she desires to be a full code. She denies any alcohol, marijuana, tobacco Nor illicit drugs. Smoking status: Never smoker Second hand tobacco smoke exposure: No Alcohol intake: never Substance use: never Substance use type: does not use Lack of Transportation: No Lack of Food: Never True Current Housing: I Have Housing Concerned About Future Housing: No Difficulty Paying Gas/Electric Bills: No Difficulty Paying for Meds: No Currently Unemployed: No Education: Don't Know Difficulty w/ Childcare or Family Care: No Living arrangements: with family Gender identity (if verbalized by the patient): Female Spiritual care concerns: No Meds Home Medications and Allergies Home Medications Medication Instructions Recorded Confirmed Ty
--- NOTE | 2023-05-24 18:38 | PC.NURSE ---
completed RN bedside swallow [facility]. Pt swallows successfully w/ no visible difficulty no uvula deviation noted. OK to put patient on a diet.
[2023-05-25] VITALS (9 sets, daily range): BP systolic 127–157; BP diastolic 56–74; PULSE 59–91; RESP 16–20; TEMP 36.2–36.6; O2SAT 96–100
--- NOTE | 2023-05-25 | ECHO_ITS ---
Patient Info Name: Sandra Stein Age: 88 years : 1935 Gender: Female Ht: 50 in Wt: 170 lbs BSA: 1.71 m2 HR: 69 bpm BP: 149 / 70 mmHg Heart Rhythm: Sinus Rhythm Technical Quality: Fair Exam Date: 05/25/2023 3:44 PM Exam Location: [facility] Patient Status: Inpatient Admit Date: 05/24/2023 Staff Ordering Physician: Dharmesh Arriaza MD Central Supply Nurse: Kate Lee RDCS Attending Provider: Frederick Junior DO Exam Type: CA echo dop color flow w con Study Info Indications - tia Contrast/Agitated Saline Contrast/Ag. Saline: Definity Amount: 2.00 ml Administered By: Kate Lee RDCS Existing IV Access: Yes IV Access Condition: patent with no signs of infiltration Summary 1. Left ventricular chamber dimension is normal. 2. Left ventricular systolic function is normal, estimated at >70%. 3. There is mildly increased left ventricular wall thickness. 4. The left ventricular diastolic function is grade I diastolic dysfunction. 5. Right ventricular systolic function is normal. 6. There is moderate aortic valve calcification. 7. There is mild to moderate aortic valve stenosis with a peak velocity of 208.45 cm/s, mean gradient of 9 mmHg, and aortic valve area of 1.40 cm2. 8. There is mild mitral valve regurgitation. 9. There is mild tricuspid valve regurgitation. Left Ventricle Left ventricular chamber dimension is normal. Left ventricular systolic function is normal, estimated at >70%. There is mildly increased left ventricular wall thickness. The left ventricular diastolic function is grade I diastolic dysfunction. Right Ventricle Right ventricular chamber dimension is normal. Right ventricular systolic function is normal. Left Atria Left atrial chamber dimension is normal. Right Atria Right atrial chamber dimension is normal. Atrial Septum Intact interatrial septum visualized by color flow imaging. Aortic Valve The aortic valve is probable trileaflet. There is mild to moderate aortic valve stenosis with a peak velocity of 208.45 cm/s, mean gradient of 9 mmHg, and aortic valve area of 1.40 cm2. There is no aortic valve regurgitation. There is moderate aortic valve calcification. Pulmonic Valve The pulmonic valve is not well visualized. Mitral Valve There is mild mitral valve regurgitation. The mitral valve annulus is mildly calcified. Tricuspid Valve There is mild tricuspid valve regurgitation. Pericardium/Pleural There is no pericardial effusion. Inferior Vena Cava Normal inferior vena cava with >50% collapse upon inspiration consistent with normal right atrial pressure, 3 mmHg. Aorta The aortic root size at the sinus of Valsalva is normal. Left Ventricular Outflow Tract Name Value Normal LVOT 2D LVOT Diameter 1.77 cm LVOT Doppler LVOT Peak Gradient 4 mmHg LVOT Mean Gradient 2 mmHg LVOT VTI 24.08 cm LVOT VTI/AV VTI Ratio 0.57 LVOT Stroke Volume 59.14 ml LVOT CO 3.74 l/min LVOT CI 2.19 L/min
[2023-05-25] MEDS: CLOPIDOGREL BISULFATE 75 MG TABLET PO (09:16)
[2023-05-25] MEDS: CALCIUM CARBONATE (OSCAL) 500 MG TABLET PO ×2 (09:16→16:37)
[2023-05-25] MEDS: FERROUS SULFATE 325 MG TABLET DR PO (09:16)
[2023-05-25] MEDS: ATORVASTATIN 40 MG TABLET PO (09:16)
[2023-05-25] MEDS: LOSARTAN POTASSIUM 25 MG TABLET PO (09:17)
[2023-05-25] MEDS: ASPIRIN 81 MG ENTERIC TABLET PO (09:17)
[2023-05-25] MEDS: calcitrioL 0.25 MCG CAPSULE PO (09:23)
[2023-05-25] MEDS: PSYLLIUM POWDER PACKET 1 PACKET PO (09:27)
[2023-05-25] MEDS: ENOXAPARIN 40 MG/0.4 ML SYRINGE SUB-Q (09:27)
--- NOTE | 2023-05-25 11:41 | PM.IMPN ---
Progress Note: A&P Assessment and Plan (1) TIA (transient ischemic attack): Code(s): G45.9 - Transient cerebral ischemic attack, unspecified Status: Acute Assessment and Plan: Patient presents with complaints of slurred speech. Initial NIHSS: 1. Head CT without contrast: No acute intracranial hemorrhage, mass effect, acute ischemic infarct. No acute intracranial process. Head/neck CTA showing no large vessel occlusion but 42% stenosis of the proximal right internal carotid artery. CXR showing mild interstitial edema. Troponin x1 negative. MRI brain with/without contrast showing old infarcts involving left basal ganglia and bilateral thalami. Neurology consulted. Pateint was given 324 of ASA, 81 daily thereafter. Order therapy. Already on Plavix and Lipitor. Check Echo (2) Dysuria: Code(s): R30.0 - Dysuria Status: Acute Assessment and Plan: UA clear. It did not prompt a UCx. Follow clinically. (3) Hypertension, essential, benign: Code(s): I10 - Essential (primary) hypertension Status: Acute Assessment and Plan: Patient's blood pressure was reviewed on 05/25 Blood pressure remains reasonably well controlled. Will continue to monitor. Plan Diet: Heart healthy GI Prophylaxis: Not currently indicated DVT Prophylaxis: SCD, Lovenox Code Status: Full code Subjective Date/time seen: 05/25/23 11:41 Interval history: 88yo female HTN and TIA here for dysarthria. Patient feels well. Walking to the BR with walker. Slept poorly last night. No CP or SOB. Symptoms lasted about 30 minutes. Exam Narrative: AF 97.5 149/70 69 20 100% ra Gen - NARD Chest - CTA bilaterally, nml RR CV - RRR S1/S2. Tele showing PACs Abd - Soft, NT/ND, Positive BS Ext - No pedal edema Neuro - Alert and oriented x4. Nonfocal exam. Psych - Nml mood and affect Skin - Warm and dry Objective Data Vital Signs Vital Signs: Vital Signs - 24 hr 05/24/23 14:23 05/24/23 15:56 05/24/23 14:42 Temperature 97.8 F Pulse Rate 88 66 76 Respiratory Rate 16 21 H 19 Blood Pressure 155/63 H 159/70 H Pulse Oximetry 100 100 89 L Oxygen Delivery Room Air 05/24/23 14:46 05/24/23 14:47 05/24/23 15:00 Temperature Pulse Rate 79 81 85 Respiratory Rate 21 H 23 H 16 Blood Pressure 127/92 H Pulse Oximetry 100 100 99 Oxygen Delivery 05/24/23 15:16 05/24/23 15:21 05/24/23 15:47 Temperature Pulse Rate 85 90 70 Respiratory Rate 15 20 16 Blood Pressure 164/136 H 159/70 H Pulse Oximetry 95 100 100 Oxygen Delivery 05/24/23 15:48 05/24/23 16:00 05/24/23 17:55 Temperature Pulse Rate 68 75 71 Respiratory Rate 11 L 12 18 Blood Pressure Pulse Oximetry 99 100 100 Oxygen Delivery Room Air 05/24/23 17:48 05/24/23 19:55 05/24/23 20:00 Temperature 97.9 F 97 F L Pulse Rate 71 109 H Respiratory Rate 18 20 Blood Pressure 160/58 H 131/46 L Pulse Oximetry 100 99 Oxygen Delivery Room Air 05/25/23 00:00 05/24/23 20:00 05/25/23 00:00 Temperature 97.2 F L Pulse Rate 71 72 73 Respiratory Rate 20 Blood Pressure 141/56 H Pulse Oximetry 96 Oxygen Delivery 05/25/23 04:23 05/25/23 04:00 Temperature 97.5 F L Pulse Rate 69 59 L Respiratory Rate 20 Blood Pressure 149/70 H Pulse Oximetry 100 Oxygen Delivery Intake/Output Intake/Output: Intake & Output 05/22/23 05/23/23 05/24/23 05/25/23 23:59 23:59 23:59 23:59 Intake Total 750 Balance 750 Meds/Results Medications: Active Medications Generic Name Dose Route Start Last Admin Trade Name Freq PRN Reason Stop Dose Admin Acetaminophen 650 mg 05/24/23 15:56 Acetaminophen 325 Mg Tablet PO Q4H PRN Mild Pain (1-3) or Fever Acetaminophen 650 mg 05/24/23 18:26 Acetaminophen 325 Mg Tablet PO Q8H PRN Pain, Mild Aspirin 81 mg 05/25/23 09:00 05/25/23 09:17 Aspirin 81 Mg Enteric Tablet PO 81 mg QARegency Meridian
[2023-05-25] MEDS: PERFLUTREN LIPID MICROSPHERES 1.5 ML VIAL DILUTED TO 10 ML TOTAL VOLUME IV PUSH (14:25)
--- NOTE | 2023-05-25 16:49 | IVDEFINITY ---
Prior to administration of IV Definity the patient was educated on the risks and benefits of the imaging enhancing agent including potential adverse side effects. The patient verbalized understanding. Allergies were verified. No exclusion criteria were identified and at least one of the following inclusion criteria were met: 1) physician request, 2) patient technically difficult to image (per the [place] [employer] of Echocardi[employer] guidelines of two or more segments not discernable within the apical view), or 3) questionable left ventricular function. ?
[2023-05-26] VITALS: PULSE 64
[2023-05-26 04:00] VITALS: PULSE 62
[2023-05-26 05:27] VITALS: BP 133/60; PULSE 71; RESP 16; TEMP 36.8; O2SAT 99
[2023-05-26 08:00] VITALS: PULSE 56; O2SAT 99
[2023-05-26] MEDS: ASPIRIN 81 MG ENTERIC TABLET PO (08:36)
[2023-05-26] MEDS: ATORVASTATIN 40 MG TABLET PO (08:37)
[2023-05-26] MEDS: ENOXAPARIN 40 MG/0.4 ML SYRINGE SUB-Q (08:37)
[2023-05-26] MEDS: CLOPIDOGREL BISULFATE 75 MG TABLET PO (08:37)
[2023-05-26] MEDS: FERROUS SULFATE 325 MG TABLET DR PO (08:37)
[2023-05-26] MEDS: CALCIUM CARBONATE (OSCAL) 500 MG TABLET PO (08:37)
[2023-05-26] MEDS: LOSARTAN POTASSIUM 25 MG TABLET PO (08:37)
--- NOTE | 2023-05-26 10:24 | PCSTNOTE ---
Please refer to the Modified Barium Swallow Evaluation in the EMR.
[2023-05-26 12:00] VITALS: PULSE 67
[2023-05-26 14:00] VITALS: BP 128/88; PULSE 69; RESP 16; TEMP 36.5; O2SAT 100
--- NOTE | 2023-05-26 14:32 | WPDNEURCNPN ---
Assessment and Plan Assessment and plan (1) Acute CVA (cerebrovascular accident): Code(s): I63.9 - Cerebral infarction, unspecified Status: Acute (2) TIA (transient ischemic attack): Code(s): G45.9 - Transient cerebral ischemic attack, unspecified Status: Acute Plan 1. Neuro deficit related to previous documented subcortical stroke by MRI 2. Hypertension 3. History of lesions of the heart plate as well in the past 4. TIA 5. Continue the medication as such and follow-u Consult date: 05/26/23 HPI: Sandra Stein is a 88 year old femaleAdmitted to the hospital through the emergency room with information that she woke up in the morning with slurred speech without associated weakness or numbness of 1 side or other side she was brought to the emergency room in private car by her daughter but she does have ongoing history of 1. Hypertension 2. TIAs in the past 3. History of taking Plavix daily and she had no history of any other associated symptomatology. She has multiple allergies. In the past she has had multiple problems particularly the history of DVT, paroxysmal supra ventricular tachycardia, hypertension, history of TIA and history of polyarthralgia. She has never smoker. she is former alcohol intake initial exam in the emergency room was normal vital signs were normal with blood pressure 155/63 routine lab studies were normal CT scan of the head was negative for the bleed head and neck CTA was negative for any involvement of the large vessel except the documentation 42% stenosis of proximal right internal carotid artery and EKG was without any atrial fibrillation subsequently she had the MRI of the brain in the hospital which documented old infarcts involving the left basal ganglia and bilateral thalami PMFSH Past Medical History Medical History Age-related osteoporosis without current pathological fracture Anemia Class 1 obesity with body mass index (BMI) of 31.0 to 31.9 in adult Cough Degenerative disc disease GERD without esophagitis Gout History of cerebrovascular accident Loss of right hand dexterity History of DVT (deep vein thrombosis) History of esophageal dilatation History of PSVT (paroxysmal supraventricular tachycardia) History of unsteady gait Hypertension, essential, benign Lesion of hard palate Mixed hyperlipidemia Overactive bladder Personal history of transient ischemic attack (TIA), and cerebral infarction without residual deficits Polyarthralgia Shingles Status post placement of implantable loop recorder Follows with Dr Basurto q 6 months Surgical History Surgical History H/O dilation and curettage History of cataract extraction Hx of total knee arthroplasty Left S/P rotator cuff repair Family History Family History Father Family history of coronary artery disease Hypertension Mother Family history of coronary artery disease Hypertension Sibling Dementia Daughter Breast cancer bilateral mastectomy Social History Social History Social History: The patient lives with her daughter. 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 Her son Abel is a durable power trade mark attorney for healthcare. And she desires to be a full code. She denies any alcohol, marijuana, tobacco Nor illicit drugs. Smoking status: Never smoker Second hand tobacco smoke exposure: No Alcohol intake: never Substance use: never Substance use type: does not use Lack of Transportation: No Lack of Food: Never True Current Housing: I Have Housing Concerned About Future Housing: No Difficulty Paying Gas/Electric Bills: No Difficulty Paying for Meds: No Currently Unemployed: No Education: Don't Know Difficulty w/ Childcare or Family Care: No Living arrange
--- NOTE | 2023-05-26 14:42 | PM.DS ---
DS: Admitting Diagnosis Discharge Date 05/26/23 Admitting Diagnosis Dysarthria DS: Discharge Diagnosis Discharge Diagnosis (1) TIA (transient ischemic attack): Code(s): G45.9 - Transient cerebral ischemic attack, unspecified Status: Acute (2) Dysuria: Code(s): R30.0 - Dysuria Status: Acute (3) Hypertension, essential, benign: Code(s): I10 - Essential (primary) hypertension Status: Acute DS: Summary Hospital Course Reason for hospitalization: 88yo female HTN and TIA here for dysarthria. Please see H&P for details. Hospital Course: Patient presents with complaints of slurred speech. Initial NIHSS: 1. Head CT without contrast:? No acute intracranial hemorrhage, mass effect, acute ischemic infarct.? No acute intracranial process. Head/neck CTA showing no large vessel occlusion but?42% stenosis of the proximal right internal carotid artery. CXR showing mild interstitial edema. Troponin x1 negative. MRI brain with/without contrast showing old infarcts involving left basal ganglia and bilateral thalami. Neurology consulted. Pateint was given 324 of ASA, 81 daily thereafter. Therapy ordered. She is already on Plavix and Lipitor. Echo showing EF 70% with Grade I diastolic dysfunction and mild-moderate . Neurology consulted. Patient had resolution of her symptoms. She overall did well and wa able to be discharged home on 05/26/23 Status at Discharge Cognitive/behavioral status at discharge: stable Time Spent with Patient Time attestation: Total time spent providing and/or coordinating discharge services: 32 minutes Time spent: Greater than 30 minutes Exam Narrative: AF 98.2 133/60 67 16 99% ra Gen - NARD Chest - CTA bilaterally, nml RR CV - RRR S1/S2. Tele showing sinus arrhythmias Abd - Soft, NT/ND, Positive BS Ext - No pedal edema Neuro - Alert and oriented. Nonfocal exam. Psych - Nml mood and affect Skin - Warm and dry Discharge Plan Discharge Attending physician on discharge: Dharmesh Arriaza Consulting providers: Monik Dhaliwal Discharging Clinician: Dharmesh Arriaza Anticipated Discharge Date/Time: 05/26/23 14:46 Patient Disposition: Home Health Service Activity: as tolerated Diet: heart healthy Discharge Instructions: Per Care Coordination, pt. will discharge home with [facility] for continued therapy. [facility] will contact pt. at time of discharge. Check blood pressure 1 to 2 times a day. Record and bring into your doctor for review. Call your doctor if your blood pressure is greater than 180/110. Take precautions to avoid falls. Rise slowly from a lying or sitting position. Pause before standing or walking. Walk with a walker at all times Contact your doctor or call 911 and come to the Emergency Room if you have weakness, slurred speech or other worrisome symptoms. Avoid NSAIDs (ibuprofen, naproxen, Aleve). Tylenol is safe to take. Follow-up with your primary care provider in 1-2 weeks. Please call for appointment. Follow-up with Neurology in 4-6 weeks. Please call for an appointment. Thank you for using [facility] for your health care needs. Patient Instructions: Antibiotic Form, Clopidogrel (By mouth), Ischemic Stroke (DC) Stand Alone Forms: General Discharge Information Follow-up/Referrals: Cathryn Garcia MD [Primary Care Provider] - Call for Appointment Monik Dhaliwal MD [Physician] - Call for Appointment Discharge Medications: New aspirin 81 mg Tablet,Delayed Release (Dr/Ec) 81 mg PO QAM Qty: 30 0RF Continued Gemtesa 75 mg tablet 75 mg PO DAILY acetaminophen [Tylenol Arthritis Pain] 650 mg Tablet Extended Release 650 mg PO Q8H PRN (Reason: Pain, Mild) calcium carbonate [Calcium 600] 600 mg calcium (1,500 mg) Tablet 600 mg PO BID calcitriol 0.25 mcg capsule 0.25 mcg PO 3XW Qty: 14 12RF Rx Instructions: Thursday,
== END 2023-05-26 15:35 | disposition home health service (06) ==
LOC: ANHED 15:56 → ANH2MED 18:01
PROVIDERS: Admitting Provider Student in an Organized Health Care Education/Training Program; Emergency Provider Emergency Medicine; PCP Family Medicine; Visit Provider Internal Medicine
DX: G45.9 Transient cerebral ischemic attack, unspecified (principal); R30.0 Dysuria; I10 Essential (primary) hypertension; Z95.818 Presence of other cardiac implants and grafts; M81.0 Age-related osteoporosis without current pathological fracture; D64.9 Anemia, unspecified; N32.81 Overactive bladder; I08.3 Combined rheumatic disorders of mitral, aortic and tricuspid valves; G30.9 Alzheimer's disease, unspecified; F02.80 Dementia in other diseases classified elsewhere, unspecified severity, without behavioral disturbance, psychotic disturbance, mood disturbance, and anxiety; R94.31 Abnormal electrocardiogram [ECG] [EKG]; E78.2 Mixed hyperlipidemia; K21.9 Gastro-esophageal reflux disease without esophagitis; M51.36 Other intervertebral disc degeneration, lumbar region; M19.90 Unspecified osteoarthritis, unspecified site; Z86.73 Personal history of transient ischemic attack (TIA), and cerebral infarction without residual deficits; Z86.718 Personal history of other venous thrombosis and embolism; Z79.1 Long term (current) use of non-steroidal anti-inflammatories (NSAID); Z79.02 Long term (current) use of antithrombotics/antiplatelets; Z79.899 Other long term (current) drug therapy; Z82.49 Family history of ischemic heart disease and other diseases of the circulatory system
CPT/HCPCS: 70450; 70496; 70498; 70553; 71045; 80053; 80307; 81001; 84484; 85025; 85610; 85730; 92610; 92611; 93005; 96372; 96374; 97161; 99285; A9270; A9577; C8929; G0378; J1650; Q9957; Q9967

== ENCOUNTER 2024-03-31 16:33 | Outpatient (CLI) | payer OTHER, SELFPAY ==
--- NOTE | ~2024-03-31 | MM_ITS ---
EXAMINATION: MM screening jaret BI w ceasar HISTORY: Screening TECHNIQUE: Craniocaudal and mediolateral oblique 3-D tomosynthesis images were obtained and synthetic 2-D images were generated. CAD analysis was submitted and interpreted. COMPARISON: Comparison to multiple prior studies sequentially, with oldest reviewed study dated 06/24. BREAST PARENCHYMAL COMPOSITION: Not dense: There are scattered areas of fibroglandular density. FINDINGS: There is no evidence of suspicious mass, calcification, or architectural distortion to sugg est malignancy in either breast. There has been no suspicious interval change. IMPRESSION: 1. No mammographic evidence of malignancy. 2. Recommend routine screening mammography in one year. BI-RADS Category 1: Negative Reviewed, dictated and finalized at location B.
== END 2024-03-31 16:34 | disposition home or self-care (01) ==
PROVIDERS: PCP Family Medicine; Visit Provider Family Medicine
DX: Z12.31 Encounter for screening mammogram for malignant neoplasm of breast (principal)
CPT/HCPCS: 77063; 77067

== ENCOUNTER 2025-04-10 15:08 | Outpatient (CLI) | payer OTHER, SELFPAY ==
--- NOTE | ~2025-04-10 | DEXA_ITS ---
Bone Density Report Name: PEARL DENIS Age: 89 Sex: Female Ethnicity: White Date of : 1935 Indication: osteopenia; height loss; rheumatoid arthritis; Referring Provider: Vidya Jay Study: Bone densitometry was performed. Exam Date: April 10, 2025 Accession number: [id number] Bone Density: Region BMD T-score Z-score Classification AP Spine(L1, L2, L4) 1.112 0.7 3.5 Normal Femoral Neck (Left) 0.597 -2.3 0.2 Osteopenia Total Hip (Left) 0.719 -1.8 0.5 Osteopenia Femoral Neck (Right) 0.509 -3.1 -0.5 Osteoporosis Total Hip (Right) 0.799 -1.2 1.2 Osteopenia Total Hip Mean 0.759 -1.5 0.9 Osteopenia World Health Organization criteria for BMD impression classify patients as: Normal (T-score at or above -1.0), Osteopenia (T-score between -1.0 and -2.5), or Osteoporosis (T-score at or below -2.5). 10-year Fracture Risk: FRAX not reported because: Some T-score for Spine Total or Hip Total or Femoral Neck at or below -2.5 Previous Exams: -- Region Exam Age BMD T-score BMD Change BMD Change Date g/cm2 vs Baseline vs Previous -- AP Spine (L1-L2,L4) 04/10/2025 89 1.112 0.7 -2.2%* -2.2%* 12/11/2022 87 1.137 0.9 Total Hip(Left) 04/10/2025 89 0.719 -1.8 -14.1%* -14.1%* 12/11/2022 87 0.837 -0.9 Total Hip(Right) 04/10/2025 89 0.799 -1.2 0.7% 0.7% 12/11/2022 87 0.794 -1.2 -- *Denotes significance at 95% confidence level, LSC for AP Spine = 0.022 g/cm2, LSC for Total Hip = 0.027 g/cm2 Clinical Information Provided by Patient: Has rheumatoid arthritis Has used the following medications: Vitamin D, Calcium Patient maximum height was 60 No regular weight bearing exercise Onset of menses at age 14 Number of children 4 Impression: The patient has osteoporosis, based on the Right Femoral Neck T-score. The BMD for the AP Spine (L1-L2,L4) decreased, changing by -2.2% since the last DXA exam. The BMD for the Total Hip(Left) decreased, changing by -14.1% since the last DXA exam. Discussion: INCREASED RISK OF FRACTURE. BONE DENSITY IS UNDESIRABLY LOW AT ONE OR MORE SKELETAL SITES, CONSISTENT WITH POSTMENOPAUSAL OSTEOPOROSIS. This patient's lowest T-score meets the World Health Organization's (WHO) criteria for osteoporosis at one or more sites (T-score -2.5 or below). In untreated patients, the risk of osteoporotic fracture increases approximately two-fold for each 1.0 SD decrease in T-score. Low bone density is not the only risk factor for fracture; also consider factors such as patient's age, frailty or poor health, risk of falling, risk of injury, previous osteoporotic fracture, family history of osteoporosis, cigarette smoking, low body weight, etc. Not everyone with low bone mineral density has osteoporosis; osteomalacia and other metabolic bone disorders should also be considered. Patients who have osteoporosis should be evaluated for specific diseases and conditions (secondary causes) that may cause or contribute to bone loss. The [place] Association of Clinical Endocrinologists (AACE) and National Osteoporosis Foundation (NOF) recommend pharmacologic intervention for all postmenopausal women whose T-score is in this range. The patient should follow a healthful lifestyle (good nutrition with adequate calcium and vitamin D, and appropriate weight-bearing exercise). Follow-Up: Consider a repeat BMD and Vertebral Fracture Assessment (VFA) exam in 2 years or sooner if medically necessary, to reassess this patient's status. Reported by: RADHA on 04/10/2025 3:31:00 PM. Reviewed, dictated and finalized at location A.
== END 2025-04-10 15:09 | disposition home or self-care (01) ==
LOC: MICIMG 15:11
PROVIDERS: PCP Family Medicine; Visit Provider Nurse Practitioner Family
DX: Z78.0 Asymptomatic menopausal state (principal); M85.852 Other specified disorders of bone density and structure, left thigh; M81.0 Age-related osteoporosis without current pathological fracture; M85.851 Other specified disorders of bone density and structure, right thigh
CPT/HCPCS: 77080

== ENCOUNTER 2025-04-27 11:00 | Outpatient (CLI) | payer OTHER, SELFPAY ==
--- OUTSIDE RECORDS SUMMARY | 2010-04-10 03:00 | XMS_ITS | Continuity of Care Document ---
Author Organization [facility] Address [address] [place] [address] Phone Care Team Providers Care Hydrographical Technical Officer Name Role Phone Roque Álvarez Unavailable Unavailable Procedures Procedure Date Office/outpatient Visit, Est Eye Exam & Treatment No Script Eye Exam & Treatment Refraction Advance Directives Directive Yes / No Effective Date File Name No Information Encounters Encounter Description Practice Location Reason(s) For Visit Diagnoses Date Provider Providers Copied on Encounter Office/outpat ient Visit, Est [facility], [address] [place] [address] [address], [place], [place], [id number], tel:[phone] [facility] No Information 8201 0 Henri Nevarez. [address], [place], [place], [facility], . tel:[phone] [facility], [address] [place] [address] [address], [place], [place], [id number], [place] tel:[phone] [facility] No Information 9 Doiduke Nevarez. [address], [place], [place], [facility], . tel:[phone] [facility], [address] [place] [address] [address], [place], [place], [id number], [place] tel:[phone] [facility] No Information 200 7 Doiduke Nevarez. [address] , [address], [place], [address], [place]. tel:[phone] Family History Family Member Type Diagnosis Age At Onset No Information Payers Payer name Insurance type Covered green party ID Bhavna alegre(s) [place] [id number] Social History Type Description Quantity Date Captured [...]
--- OUTSIDE RECORDS SUMMARY | 2025-04-27 11:49 | XMS_ITS | Encounter Summary ---
Author Organization [facility] Address [address] [place] [id number] Phone Care Team Providers Care Piano Bench Assembler Name Role Phone Gume Gutierrez MD Primary Care Provider [phone] Reason for Visit * Reason Comments Med Refill Encounter Details Date Type Department Care Team (Late st Contact Info) Description 06/11/2020 Refill [facility] Nephrology and Hypertension [address] [facility], [address] [address] Santhosh Arshad MD [address] [facility], [address] [facility], [id number] [place] [address] Social History Tobacco Use Types Packs/Day Years Used Date Smoking Tobacco: Never Smokeless Tobacco: Never Alcohol Use Standard Drinks/Week Comments Yes 0 (1 standard drink = 0.6 oz pur e alcohol) rare Comments Unknown Sex and Gender Information Value Date Recorded Sex Assigned at Not on file Legal Sex Female 10:05 AM [facility] Gender Identity Not on file Sexual Orientation Not on file documented as of this encounter Plan of Treatment Not on file documented as of this encounter Visit Diagnoses Not on filedocumented in this encounter Care Teams Piano Bench Assembler Relationship Specialty Start Date End Date Gume Gutierrez MD [address] [place] [address] PCP - General Family Medicine 02/09/19 documented as of this encounter
--- OUTSIDE RECORDS SUMMARY | 2025-04-27 11:49 | XMS_ITS | Clinical Summary ---
Author Organization [facility] Address [address] [facility] Attn: Epic Prelude ADT LAYLADANA [facility]ERTOM[facility] RODRIGES [id number] Care Team Providers Care Health Record Technician Name Role Phone Unavailable Primary Care Provider Unavailabl e Social History Tobacco Use Types Packs/Day Years Used Date Smoking Tobacco: Never Assessed Comments Unknown Sex and Gender Information Value Date Recorded Sex Assigned at Not on file Legal Sex Female 10:40 PM CDT Gender Identity Not on file Sexual Orientation Not on file Plan of Treatment Health Maintenance Due Date Last Done Comments DTAP/TDAP/TD VACCINES (1 - Tdap) 01/28/1954 PNEUMOCOCCAL VACCINE 50+ YEARS (1 of 1 - PCV) 01/27/19 87 ZOSTER VACCINE (1 of 2) 1987 OSTEOPOROSIS SCREENING 2002 RSV VACCINE (60+ or ) (1 - 1-dose 75+ series) 01/28/2012 INFLUENZA VACCINE (#1) 2025
--- OUTSIDE RECORDS SUMMARY | 2025-04-27 11:49 | XMS_ITS | Encounter Summary ---
Author Organization [facility] Address [address] [place] [phone] Phone Care Team Providers Care Spring Intern Name Role Phone Gume Gutierrez MD Primary Care Provider [phone] Reason for Visit * Reason Comments Med Refill Encounter Details Date Type Department Care Team (Late st Contact Info) Description 04/01/[address] [facility] Nephrology and Hypertension [address] [facility], [address] [address] Santhosh Arshad MD [address] [facility], [address]ITE [facility] [place] [address] Social History Tobacco Use Types Packs/Day Years Used Date Smoking Tobacco: Never Smokeless Tobacco: Never Alcohol Use Standard Drinks/Week Comments Yes 0 (1 standard drink = 0.6 oz pur e alcohol) rare Comments Unknown Sex and Gender Information Value Date Recorded Sex Assigned at Not on file Legal Sex Female 10:05 AM [facility] Gender Identity Not on file Sexual Orientation Not on file documented as of this encounter Plan of Treatment Not on file documented as of this encounter Visit Diagnoses Not on filedocumented in this encounter Care Teams Spring Intern Relationship Specialty Start Date End Date Gume Gutierrez MD [address] [place] [address] PCP - General Family Medicine 02/09/19 documented as of this encounter
--- OUTSIDE RECORDS SUMMARY | 2025-04-27 11:49 | XMS_ITS | Clinical Summary ---
Author Organization [facility] [address] Address [address] [place] [address] Care Team Providers Care Returned Goods Receiving Clerk Name Role Phone Cris Garcia MD Primary Care Provider Allergies Active Allergy Reactions Criticality Noted Date Comments Penicillins Unknown 05/27/2019 Sulfa (Sulfonamide Antibiotics) Unknown 11/2018 Medications acetaminophen (TYLENOL) 500 mg tablet Take 1 tablet (500 mg total) by mouth every 6 (six) hours as needed for pain Active clopidogreL (PLAVIX) 75 mg tablet Take 1 tablet (75 mg total) by mouth every morning 05/08/2020 Active losartan (COZAAR) 25 mg tablet Take 1 tablet (25 mg total) by mouth every morning 05/08/2020 Active atorvastatin (LIPITOR) 40 mg tablet Take 1 tablet (40 mg total) by mouth daily 05/08/2020 Active vibegron (Gemtesa) 75 mg tablet Take by mouth Active aspirin 81 mg enteric coated tablet Take 1 tablet (81 mg total) by mouth daily Active Active Problems Problem Noted Date Diagnosed Date Hyperlipidemia 08/20/2021 Exertional chest pain 08/20/2021 Recurrent falls 03/06/2021 PSVT (paroxysmal supraventricular tachycardia) 0 03/06/2021 Localized edema 12/11/2020 Visit for wound check 05/29/2020 Status post placement of implantable loop record er 05/24/2020 Overview (05/24/2020): Med[employer]onic Reveal Implantable Loop Recorder. Dx; CVA. DOI 05/22/2020-[place]. Carelink remote monitoring. SSS (sick sinus syndrome) ([facility]/HCC) 05/27/2019 CVA, old, aphasia 05/27/2019 Chronic fatigue 05/27/2019 HTN (hypertension), benign 05/27/2019 History of DVT (deep vein thrombosis) 05/27/2019 Chronic anticoagulation 05/27/2019 Bradycardia 05/27/2019 Resolved Problems Problem Noted Date Diagnosed Date Resolved Date Dyslipidemia 05/27/2019 08/20/2021 Surgical History Surgery Date Site/Laterality Comments REPLACEMENT TOTAL KNEE 08/24/2005 - 08/23/2006 Left Medical History Medical History Date Comments Hypertension Hyperlipidemia Acid indigestion Pneumonia Stroke (HCC) Arthritis Gout Family History Medical History Relation Name Comments Heart failure Father Heart failure Mother Stroke Mother Dementia Sister Relation Name Status Comments Father (Age 84) Mother (Age 89) Sister (Age 86) Social History Tobacco Use Types Packs/Day Years Used Date Smoking Tobacco: Never Smokeless Tobacco: Never Tobacco Cessation:Counseling Given: Not Answered Alcohol Use Standard Drinks/Week Comments Not Currently 0 (1 standard drink = 0.6 oz pur e alcohol) Personal Safety Answer Date Recorded Getting School Help Needed Not on file 08/04 Comments Unknown Sex and Gender Information Value Date Recorded Sex Assigned at Not on file Legal Sex Female 4:07 PM CITY ADMINISTRATOR Gender Identity Not on file Sexual Orientation Not on file Obstetrics History Last Filed Vital Signs Vital Sign Reading Time Taken Comments Blood Pressure 144/70 06/24/2024 3:03 PM CDT Pulse 68 06/24/2024 3:03 PM CDT Temperature 37.2 C (98.9 F) 08/12/2021 5:39 PM CITY ADMINISTRATOR Respiratory Rate 20 08/12/2021 5:39 PM CITY ADMINISTRATOR Oxygen Saturation 97% 06/24/2024 3:03 PM CDT Inhaled Oxygen Concentration - - Weight 81.2 kg (179 lb) 06/24/2024 3:03 PM CDT Height 152.4 cm (5') 06/24/2024 3:03 PM CDT Body Mass Index 34.96 06/24/2024 3:03 PM CDT Plan of Treatment Health Maintenance Due Date Last Done Comments Depression Screening 1937 Fall Risk Assessment 1935 Osteoporosis Screening-Bone Density Scan 1937 Hepatitis B Screening 1955 Well Visit 65+ 2002 Zoster Vaccine (2 of 3) 10/19/2014 08/24/2014 DTaP/Tdap/Td Vaccine (2 - Td or Tdap) 08/24/2022 08/24/2012 Influenza Vaccine (#1) 2025 8, 07/28/2017, 06/13/2015, Additional history exists Pneumococcal vaccine 65+ Completed 11/24/2016, 08/[address] [place] [address] [facility] [place] [address] [facility] Care Teams Returned Goods Receiving Clerk Relationship Specialty Start Date End Date Cris Garcia MD PCP - General Family Practice 05/29/20
--- OUTSIDE RECORDS SUMMARY | 2025-04-27 11:49 | XMS_ITS | Clinical Summary ---
Author Organization [facility] Address [address] [place] [address] Phone Care Team Providers Care Electro Mechanical Designer Name Role Phone Gume Gutierrez MD Primary Care Provider [phone] Allergies Active Allergy Reactions Criticality Noted Date Comments Clarithromycin Celecoxib Levofloxacin Penicillins Sulfa Antibiotics Tetracyclines & Related Medications colchicine 0.6 MG tablet 2 now and 1 a day for 5 days prn gout 0 8 Active calcium carbonate (OS-YAYA) 600 MG tablet 2 daily 5 Active Cholecalciferol (VITAMIN D3) 5000 units capsule 1 dialy 5 Active acetaminophen (TYLENOL ARTHRITIS PAIN) 650 MG 8 hr tablet 1 every 8 as needed 5 Active metoprolol tartrate (LOPRESSOR) 6.25 MG tablet 2 (two) times a day. Active aspirin 81 MG chewable tablet Chew 81 mg 1 (one) time each day. Active pravastatin (PRAVACHOL) 40 MG tablet Take 1 tablet (40 mg total) by mouth 1 (one) time each day 90 tablet 3 0 Active calcitriol (ROCALTROL) 0.25 MCG capsule TAKE ONE CAPSULE BY MOUTH ONCE DAILY ON THURSDAY, THURSDAY AND THURSDAY 14 capsule 12 0 Active Active Problems Problem Noted Date Diagnosed Date Chronic kidney disease, stage 3 (moderate) 02/17 Secondary hyperparathyroidism 02/17/2018 Gout 02/17/2018 Gastro-esophageal reflux disease without esophag itis 10/28/2017 Essential (primary) hypertension 08/06/2015 Hyperlipidemia 08/06/2015 Acute embolism and thrombosi s of unspecified deep veins of right lower extremity 08/06/2015 Family History Medical History Relation Comments Kidney disease Child Coronary arteriosclerosis Father Coronary arteriosclerosis Mother Kidney stone Neg Hx Relation Status Comments Child Father Mother Social History Tobacco Use Types Packs/Day Years Used Date Smoking Tobacco: Never Smokeless Tobacco: Never Alcohol Use Standard Drinks/Week Comments Yes 0 (1 standard drink = 0.6 oz pur e alcohol) rare Comments Unknown Sex and Gender Information Value Date Recorded Sex Assigned at Not on file Legal Sex Female 10:05 AM MST Gender Identity Not on file Sexual Orientation Not on file Last Filed Vital Signs Vital Sign Reading Time Taken Comments Blood Pressure 124/64 08/02/2018 12:01 AM SHAPE BRICK MOLDER Pulse 84 08/02/2018 12:01 AM SHAPE BRICK MOLDER Temperature 36.4 C (97.5 F) 02/17/2018 12:01 AM CDT Respiratory Rate - - Oxygen Saturation - - Inhaled Oxygen Concentration - - Weight 83.5 kg (184 lb) 08/02/2018 12:01 AM SHAPE BRICK MOLDER Height 152.4 cm (5') 08/02/2018 12:01 AM SHAPE BRICK MOLDER Body Mass Index 35.94 08/02/2018 12:01 AM SHAPE BRICK MOLDER Plan of Treatment Health Maintenance Due Date Last Done Comments Pneumococcal PPSV23/PCV13 65 + Years / Low and Medium Risk (1 of 2 - PCV) 1987 Influenza Vaccine (#1) 2025 Insurance [facility] MEDICARE HMO Care Teams Electro Mechanical Designer Relationship Specialty Start Date End Date Gume Gutierrez MD [address] [place] [address] PCP - General Family Medicine 02/09/19
--- NOTE | 2025-04-27 12:30 | NEURO_ITS ---
Clinical note: Patient 89-year-old with history of numbness and tingling in her right hand and elbow and shoulder and also pain in the neck. No history of major trauma or diabetes mellitus. On examination patient was noted to have moderate atrophy of the right thenar muscles. The results of nerve can study and EMG are given below. Summary of findings: 1. Right median motor distal latency was significantly prolonged and amplitude is moderately decreased. Conduction velocity mildly decreased. 2. Right ulnar motor distal latency was mildly prolonged however amplitude and conduction velocity within normal limits. There is no significant slowing across the elbow. 3. Right median palmar and digital sensory responses were absent. Right ulnar and radial sensory distal latency amplitude are considered essentially within normal limits. 4. EMG examination was performed which shows mild decreased recruitment in the right triceps however other C6-7 muscles did not show any significant changes. Moderate decreased recruitment was noted in the right abductor pollicis brevis. Iimpression: 1. Severe right carpal tunnel syndrome. Moderate decreased recruitment was noted in the right abductor pollicis brevis. 2.: Mild decreased recruitment was noted in the right triceps suggestive of chronic right C6-7 radiculopathy however other C6-7 muscles did not show any significant changes. Hence clinical and if necessary radiographic correlation may considered. Patient has been advised to be evaluated by a hand surgeon in view of findings. Please feel free to call me if you have any questions regarding this study. Aimee Schultz MD, FAAN, FAANEM Neurology/electromyography Nerve Conduction Studies Motor Nerve Results ? Latency Amplitude F-Lat Segment Distance CV Comment Site (ms) (mV) (ms) (cm) (m/s) Right Median (APB) Motor Wrist 7.3 2.0 Elbow 12.1 1.84 Elbow-Wrist 200 42 Right Ulnar (ADM) Motor Wrist 3.6 6.0 Bel Elbow 6.4 6.6 Bel Elbow-Wrist 180 64 Abv Elbow 7.5 6.3 Abv Elbow-Bel Elbow 70 64 Sensory Nerve Results ? Latency (Peak) Amplitude (P-P) Segment Distance CV Comment Site (ms) (?V) (cm) (m/s) Right Median DigIII Sensory Wrist-Dig III NR NR Wrist-Dig III 140 NR Right Median-Ulnar Palmar Sensory ? Median Palm-Wrist NR NR Palm-Wrist 80 NR ? Ulnar Palm-Wrist 1.85 12 Palm-Wrist 80 43 Right Radial Sensory Forearm-Wrist 2.1 48 Forearm-Wrist 100 48 Right Ulnar Sensory Wrist-Dig V 3.4 32 Wrist-Dig V 115 34 Electromyography ?Side Muscle Nerve Ins Act Fibs Psw Amp Dur Recrt Comment Right Deltoid Axillary Nml Nml Nml Nml Nml Nml Right Biceps Musculocut Nml Nml Nml Nml Nml Nml Right Triceps Radial Nml Nml Nml Incr >12ms +2 Right Ext Digitorum Radial (Post Int) Nml Nml Nml Nml Nml Nml Right ExtCarUln Radial (Post Int) Nml Nml Nml Nml Nml Nml Right Ext Indicis Radial (Post Int) Nml Nml Nml Nml Nml Nml Right FlexPolLong Median (Ant Int) Nml Nml Nml Nml Nml Nml Right 1stDorInt Ulnar Nml Nml Nml Nml Nml Nml Right Abd Poll Brev Median Nml Nml Nml Nml >12ms +2 Right FlexDigProf Ulnar Nml Nml Nml Nml Nml Nml Right FlexCarRad Median Nml Nml Nml Nml Nml Nml
== END 2025-04-27 11:01 | disposition home or self-care (01) ==
PROVIDERS: PCP Family Medicine; Visit Provider Psychiatry & Neurology Neurology
DX: R20.2 Paresthesia of skin (principal); M54.2 Cervicalgia; Z86.73 Personal history of transient ischemic attack (TIA), and cerebral infarction without residual deficits; G56.01 Carpal tunnel syndrome, right upper limb
CPT/HCPCS: 95886; 95909

== ENCOUNTER 2025-04-27 13:16 | Emergency (ER) | payer OTHER, SELFPAY ==
--- OUTSIDE RECORDS SUMMARY | 2010-04-10 03:00 | XMS_ITS | Continuity of Care Document ---
Author Organization [facility] Address [address] [place] [address] Phone Care Team Providers Care Global Upstream Marketing Manager Name Role Phone Roque Álvarez Unavailable Unavailable Procedures Procedure Date Office/outpatient Visit, Est Eye Exam & Treatment No Script Eye Exam & Treatment Refraction Advance Directives Directive Yes / No Effective Date File Name No Information Encounters Encounter Description Practice Location Reason(s) For Visit Diagnoses Date Provider Providers Copied on Encounter Office/outpat ient Visit, Est [facility], [address] [place] [address] [address], [place], [place], [id number], tel:[phone] SEC [facility] No Information 8201 0 Henri Nevarez. [address], [place], [place], [facility], . tel:[phone] [facility], [address] [place] [address] [address], [place], [place], [id number], [place] tel:[phone] [facility] No Information 9 Doiduke Nevarez. [address], [place], [place], [facility], . tel:[phone] [facility], [id number] [place] [address] [address], [place], [place], [id number], [place] tel:[phone] [facility] No Information 200 7 Doiduke Nevarez. [address], [place], [address], [place]. tel:[phone] Family History Family Member Type Diagnosis Age At Onset No Information Payers Payer name Insurance type Covered green party ID Bhavna alegre(s) [place] BL [id number] Social History Type Description Quantity Date Captured Comments Sex Female Smoking Status No Information Chief Complaint And Reason For Visit No Information Reason For Referral Reason For Referral No Information History Of Present Illness Encounter Date Complaint History Of Prese nt Illness No Information Functional Status Date Functional Assessmen t No Information Instructions Date Instruction Additional Infor mation No Information Assessments Type Assessment Date No Information Patient Care Teams Name Effective Dates (start - stop) Status Members No Information
--- NOTE | ~2025-04-27 | CT_ITS ---
EXAMINATION: CTA chest PE protocol DATE: 04/27/2025 14:46 CDT INDICATION: Chest pain. Right lower extremity edema. History of DVT. TECHNIQUE: Computed tomographic angiography (CTA) of the chest was performed with 100 mL Omnipaque-350 intravenous contrast. The dose-length product was 305.65 mGy-cm. Maximum intensity projection 3D-reconstructions of the aorta and other arteries were constructed by the technologist on a separate workstation. COMPARISON: None. FINDINGS: There is focal eventration of the right diaphragm posteriorly. There is a hiatal hernia. No large central pulmonary embolism. Evaluation of the peripheral subsegmental pulmonary arteries limited due to motion artifact particularly in the lower lobes. Heart size normal. Mild atherosclerosis of the aorta without aneurysm. There is dependent atelectasis. No endobronchial lesions. No focal airspace consolidation. There is apical pleural thickening. No suspicious pulmonary nodules or masses. There is dependent atelectasis. IMPRESSION: 1. No acute cardiopulmonary disease. No central pulmonary embolism. Reviewed, dictated and finalized at location O.
--- NOTE | ~2025-04-27 | US_ITS ---
EXAMINATION:US venous doppler LE BI INDICATION:Bilateral leg pain and swelling TECHNIQUE: Multiple grayscale, color flow and Doppler images of the bilateral lower extremity deep venous systems were obtained and reviewed. COMPARISON:No prior studies for comparison. FINDINGS: The common femoral, superficial femoral and popliteal veins demonstrate normal respiratory variation, augmentation and compressibility. Color flow is also seen within the posterior tibial, peroneal, greater saphenous and profunda veins. IMPRESSION: 1: No lower extremity deep venous thrombosis. Reviewed, dictated and finalized at location O.
--- NOTE | ~2025-04-27 | XR_ITS ---
EXAM/PROCEDURE: XR chest 2V - 04/27/2025 14:45 CDT HISTORY: 89 years old Female with chest pain TECHNIQUE: Two view(s) of the chest. COMPARISON: None available. FINDINGS: LUNGS/ PLEURA: No focal consolidation. No appreciable pneumothorax or large pleural effusion. HEART/ MEDIASTINUM: Heart appears normal in size. Atherosclerotic calcifications are seen in the aorta. BONES: Degenerative changes. Epicardial pacemaker. OTHER: Visualized upper abdomen is unremarkable. IMPRESSION: No acute process. Reviewed, dictated and finalized at location N. IMPRESSION: No acute process.
--- OUTSIDE RECORDS SUMMARY | 2025-04-27 13:19 | XMS_ITS | Clinical Summary ---
Author Organization [facility] Address [address] [place] [phone] Phone Care Team Providers Care Rotary Driller Prospecting Name Role Phone Gume Gutierrez MD Primary Care Provider [phone] Allergies Active Allergy Reactions Criticality Noted Date [...] Comments Blood Pressure 124/64 08/02/2018 12:01 AM STATION TENDER Pulse 84 08/02/2018 12:01 AM STATION TENDER Temperature 36.4 C (97.5 F) 02/17/2018 12:01 AM CDT Respiratory Rate - - Oxygen Saturation - - Inhaled Oxygen Concentration - - Weight 83.5 kg (184 lb) 08/02/2018 12:01 AM STATION TENDER Height 152.4 cm (5') 08/02/2018 12:01 AM STATION TENDER Body Mass Index 35.94 08/02/2018 12:01 AM STATION TENDER Plan of Treatment Health Maintenance Due Date Last Done Comments Pneumococcal PPSV23/PCV13 65 + Years / Low and Medium Risk (1 of 2 - PCV) 1987 Influenza Vaccine (#1) [address] [facility] MEDICARE HMO Care Teams Rotary Driller Prospecting Relationship Specialty Start Date End Date Gume Gutierrez MD [address] [place] [address] PCP - General Family Medicine 02/09/19
--- OUTSIDE RECORDS SUMMARY | 2025-04-27 13:19 | XMS_ITS | Encounter Summary ---
Author Organization [facility] Address [address] [place] [address] Phone Care Team Providers Care Wardrobe Attendant Name Role Phone Gume Gutierrez MD Primary Care Provider [phone] Reason for Visit * Reason Comments Med Refill Encounter Details Date Type Department Care Team (Late st Contact Info) Description 04/01/2020 Refill [facility] Nephrology and Hypertension [address] [facility], [address] [address] Santhosh Arshad MD [address] [facility], SUITE [facility] [place] [address] Social History Tobacco Use Types Packs/Day Years Used Date Smoking Tobacco: Never Smokeless Tobacco: Never Alcohol Use Standard Drinks/Week Comments Yes 0 (1 standard drink = 0.6 oz pur e alcohol) rare Comments Unknown Sex and Gender Information Value Date Recorded Sex Assigned at Not on file Legal Sex Female 10:05 AM [facility] Gender Identity Not on file Sexual Orientation Not on file documented as of this encounter Plan of Treatment Not on file documented as of this encounter Visit Diagnoses Not on filedocumented in this encounter Care Teams Wardrobe Attendant Relationship Specialty Start Date End Date Gume Gutierrez MD [address] [place] [address] PCP - General Family Medicine 02/09/19 documented as of this encounter
--- OUTSIDE RECORDS SUMMARY | 2025-04-27 13:19 | XMS_ITS | Clinical Summary ---
Author Organization [facility] Address [address] [facility] Attn: Epic Prelude ADT LAYLADANA ROBERTOMILLICENT RODRIGES [address] Care Team Providers Care Screen Writer Name Role Phone Unavailable Primary Care Provider [...]
--- OUTSIDE RECORDS SUMMARY | 2025-04-27 13:19 | XMS_ITS | Clinical Summary ---
Author Organization [facility] [place] [address] Address [address] [place] [address] Care Team Providers Care Pet Training Instructor Name Role Phone Cris Garcia MD Primary [...] Carelink remote monitoring. SSS (sick sinus syndrome) ([facility]/HCC) 05/27/2019 CVA, old, aphasia 05/27/2019 Chronic fatigue [...] on file Legal Sex Female 4:07 PM TELLERS SUPERVISOR Gender Identity Not on file Sexual Orientation Not on file Obstetrics History Last Filed Vital Signs Vital Sign Reading Time Taken Comments Blood Pressure 144/70 06/24/2024 3:03 PM CDT Pulse 68 06/24/2024 3:03 PM CDT Temperature 37.2 C (98.9 F) 08/12/2021 5:39 PM TELLERS SUPERVISOR Respiratory Rate 20 08/12/2021 5:39 PM TELLERS SUPERVISOR Oxygen Saturation 97% 06/24/2024 3:03 PM CDT [...] vaccine 65+ Completed 11/24/2016, 08/[address] [place] [address] [facility] [place] [address] [facility] Care Teams Pet Training Instructor Relationship Specialty Start Date End Date Cris Garcia MD PCP - General Family Practice 05/29/20
--- OUTSIDE RECORDS SUMMARY | 2025-04-27 13:19 | XMS_ITS | Encounter Summary ---
Author Organization [facility] Address [address] [place] [address] Phone Care Team Providers Care Information And Data Architect Analyst Name Role Phone Gume Gutierrez MD Primary Care Provider [phone] Reason for Visit * Reason Comments Med Refill Encounter Details Date Type Department Care Team (Late st Contact Info) Description 06/11/2020 Refill [facility] Nephrology and Hy[facility]ension 10[address] [facility], [address] [address] Santhosh Arshad MD [address] [facility], [address] [facility] [place] [address] Social History Tobacco Use Types Packs/Day Years Used Date Smoking Tobacco: Never Smokeless Tobacco: Never Alcohol Use Standard Drinks/Week Comments Yes 0 (1 standard drink = 0.6 oz pur e alcohol) rare Comments Unknown Sex and Gender Information Value Date Recorded Sex Assigned at Not on file Legal Sex Female 10:05 AM [facility] Gender Identity Not on file Sexual Orientation Not on file documented as of this encounter Plan of Treatment Not on file documented as of this encounter Visit Diagnoses Not on filedocumented in this encounter Care Teams Information And Data Architect Analyst Relationship Specialty Start Date End Date Gume Gutierrez MD [address] [place] [address] PCP - General Family Medicine 02/09/19 documented as of this encounter
--- NOTE | 2025-04-27 13:21 | ECG_ITS ---
Test Date: 2025-04-27 13:23:59 Measurements Intervals Marissa Rate: 75 P: 55 [place]: 147 QRS: 40 QRSD: 81 T: 19 QT: 352 QTc: 395 Interpretive Statements SINUS RHYTHM POSSIBLE LEFT ATRIAL ENLARGEMENT [-0.1mV P-WAVE IN V1/V2] No previous ECG available for comparison Electronically Signed On 04-28-2025 12:10:28 CDT by Jose A Elias M.D.
[2025-04-27 13:22] VITALS: BP 156/75; PULSE 78; RESP 20; TEMP 36.8; O2SAT 96
[2025-04-27 13:35] VITALS: BP 156/75; PULSE 76; RESP 27; O2SAT 92
[2025-04-27 13:41] VITALS: PULSE 95; O2SAT 97
[2025-04-27 13:43] VITALS: O2SAT 97
[2025-04-27 13:46] VITALS: BP 166/63; PULSE 71; RESP 24; O2SAT 96
[2025-04-27 13:48] LABS: Hematocrit 45.7 % (37.0-47.0); Hemoglobin 14.7 g/dL (12.0-15.0); Immature Granulocyte Percent A 0.3 % (0-0.5); Immature Platelet Fraction Pct 5.6 % (0.9-11.2); Lymphocytes Absolute Auto 1.45 K/mm3 (0.9-3.2); Mean Corpuscular HGB Conc 32.2 g/dl (32-36); Mean Corpuscular Hemoglobin 31.5 pg (26-34); Mean Corpuscular Volume 98.1 fl (80-100); Nucleated Red Blood Cells Absolute Auto 0.000 K/mm3 (0.0-0.012); Nucleated Red Blood Cells Perc 0.0 % (0.0-0.2); Platelet Count Result 153 k/mm3 (150-375); Red Blood Count 4.66 M/mm3 (4.2-5.4); White Blood Count 6.6 K/mm3 (4.5-10.0)
[2025-04-27 13:58] LABS: Alanine Aminotransferase 17 U/L (6-35); Albumin Level 4.2 g/dL (3.5-5.1); Alkaline Phosphatase 232 U/L (38-126); Anion Gap 11 mmol/L (4-12); Aspartate Amino Transferase 34 U/L (14-36); Bilirubin,Total 0.9 mg/dL (0.2-1.3); Blood Urea Nitrogen 24 mg/dL (7-17); Calcium 9.6 mg/dL (8.4-10.2); Carbon Dioxide 22 mmol/L (22-30); Chloride 107 mmol/L (98-107); Estimated CRCL calculation 34 ml/min; Estimated Glomerular Filt Rate 49; Glucose 93 mg/dL (65-110); Lipase 123 U/L (23-300); Potassium 4.5 mmol/L (3.4-5.0); Sodium 140 mmol/L (137-145); Total Protein 7.5 g/dL (6.3-8.2)
[2025-04-27 14:04] LABS: INR 1.0; Prothrombin Time 13.5 Seconds (11.1-14.7)
[2025-04-27 14:05] LABS: Partial Thromboplastin Time 28.0 Seconds (22.3-36.8)
[2025-04-27 14:10] LABS: Troponin I < 0.012 ng/mL (0.000-0.034)
[2025-04-27 14:15] LABS: Schistocytes None Seen
--- NOTE | 2025-04-27 15:02 | ED.GENADULT ---
HPI - General Adult General Chief complaint: Chest Pain Stated complaint: Chest pain Time Seen by Provider: 04/27/25 13:18 History of Present Illness HPI narrative: Patient is a poor historian and has dementia. This is an 89-year-old female presenting for an episode chest tightness. Patient was at a neurologist's office getting an EMG of her right arm. After the test she felt that she had tightness in the center of her chest. It is nonradiating. Mild in intensity. It resolved on its own after 15-30 minutes. She has never had pain like this before no exacerbating alleviating factors. Not associated with exertion diaphoresis vomiting. No fevers cough or shortness of breath. Patient believe she has a history of a DVT but she is unsure. She is not on anticoagulation. Related Data Home Medications ?Medication ?Instructions ?Recorded ?Confirmed ?Last Taken ?Type acetaminophen 650 mg 650 mg PO Q8H PRN Pain, Mild 05/06/20 02/22/25 Unknown History tablet,extended release (Tylenol Arthritis Pain) Allergies Allergy/AdvReac Type Severity Reaction Status Date / Time succinylcholine Allergy Severe HARD TO Verified 04/27/25 13:36 WAKE UP allopurinol Allergy Unknown Unknown Verified 04/27/25 13:36 celecoxib Allergy Unknown Not Verified 04/27/25 13:36 Entered,Unknown doxycycline Allergy Unknown Not Verified 04/27/25 13:36 Entered,Unknown erythromycin base Allergy Unknown MYCINS Verified 04/27/25 13:36 levofloxacin Allergy Unknown Rash,Unknow Verified 04/27/25 13:36 n Penicillins Allergy Unknown Not Verified 04/27/25 13:36 Entered,Unknown Sulfa (Sulfonamide Allergy Unknown Not Verified 04/27/25 13:36 Antibiotics) Entered,Unknown [facility] Past Medical History Medical History MCI (mild cognitive impairment) Paresthesia of right upper limb Vitamin D3 deficiency Osteopenia History of TIA (transient ischemic attack) and stroke History of cerebrovascular accident Loss of right hand dexterity Class 1 obesity with body mass index (BMI) of 31.0 to 31.9 in adult Degenerative disc disease Anemia Cough Polyarthralgia Status post placement of implantable loop recorder Follows with Dr Basurto q 6 months History of PSVT (paroxysmal supraventricular tachycardia) Overactive bladder Personal history of transient ischemic attack (TIA), and cerebral infarction without residual deficits History of esophageal dilatation Gout Shingles TIA (transient ischemic attack) (~05/2023) GERD without esophagitis History of DVT (deep vein thrombosis) Hypertension, essential, benign Lesion of hard palate Mixed hyperlipidemia History of unsteady gait Surgical History Surgical History H/O dilation and curettage S/P rotator cuff repair Hx of total knee arthroplasty Left History of cataract extraction Family History Family History Father Family history of coronary artery disease Hypertension Mother Family history of coronary artery disease Hypertension Sibling Dementia Daughter Breast cancer bilateral mastectomy Social History Social History Social History: The patient lives with her daughter. 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 Her son Abel is a durable power environmental attorney for healthcare. And she desires to be a full code. She denies any alcohol, marijuana, tobacco Nor illicit drugs. Smoking status: Never smoker Second hand tobacco smoke exposure: No Alcohol intake: current Alcohol use details: once a month Substance use: never Other substance usage details: Rarely Do You Feel Safe in your Home?: Yes Lack of Transportation: No Lack of Food: Never True Current Housing: I Have Housing Concerned About Future Housing: No Difficulty Paying Gas/Electric Bills: No Difficulty Paying for Meds: No Currently Unemployed: No Education: Don't Know Difficulty w/ Childcare or Family Care: No Living arrangements: with family Gender identity (if verbalized by the patient): Female Spiritual care concerns: No Exam Narrative: APPEARANCE: No apparent distress. Head: atraumatic. EYES: EOMI, NOSE: Atraumatic NECK: Trachea midline RESPIRATORY: No increased rate of breathing clear to auscultation CARDIOVASCULAR: RRR, edema of the lower extremities left slightly worse than right ABDOMINAL: Non-distended soft nontender MUSCULOSKELETAl: No obvious deformities NEURO: Alert. Moving 4/4 extremities SKIN:: Warm, dry. Normal color PSYCHIATRIC: Normal affect Course Vital Signs Vital signs: Vital Signs Temperature 98.2 F 04/27/25 13:22 Pulse Rate 78 04/27/25 13:22 Respiratory Rate 20 04/27/25 13:22 Blood Pressure 156/75 H 04/27/25 13:22 Pulse Oximetry 96 04/27/25 13:22 Oxygen Delivery Room Air 04/27/25 13:22 Temperature 98.2 F 04/27/25 13:22 Pulse Rate 71 04/27/25 13:46 Respiratory Rate 24 H 04/27/25 13:46 Blood Pressure 166/63 H 04/27/25 13:46 Pulse Oximetry 96 04/27/25 13:46 Oxygen Delivery Room Air 04/27/25 13:43 Medical Decision Making MDM Narrative Medical decision making narrative: -Course: 89-year-old female with dementia presenting with a brief episode of chest tightness. Symptoms resolved on their own without intervention. She has no complaints at this time. Physical exam showed some lower extremity edema slightly worse on the left than the right. Venous ultrasound negative for DVT. CTA PE negative as well. EKG without ischemic changes. Troponins negative x2. Patient has been asymptomatic throughout her stay and is resting comfortably stable vital signs. She will be discharged follow-up with primary care physician. Her daughter has asked about what to do about her lower extremity edema and I have recommended compression stockings. I have also told him to follow up with primary care physician for further management. -DDX includes but is not limited to: ACS, PE, pneumonia, pneumothorax, DVT Vital Signs Vital Signs: Vital Signs Temperature 98.2 F 04/27/25 13:22 Pulse Rate 78 04/27/25 13:22 Respiratory Rate 20 04/27/25 13:22 Blood Pressure 156/75 H 04/27/25 13:22 Pulse Oximetry 96 04/27/25 13:22 Oxygen Delivery Room Air 04/27/25 13:22 Temperature 98.2 F 04/27/25 13:22 Pulse Rate 71 04/27/25 13:46 Respiratory Rate 24 H 04/27/25 13:46 Blood Pressure 166/63 H 04/27/25 13:46 Pulse Oximetry 96 04/27/25 13:46 Oxygen Delivery Room Air 04/27/25 13:43 Lab Data 04/27/25 13:37 04/27/25 13:37 Labs: Lab Results 04/27/25 04/27/25 Range/Units 13:37 16:55 WBC 6.6 (4.5-10.0) K/mm3 RBC 4.66 (4.2-5.4) M/mm3 Hgb 14.7 (12.0-15.0) g/dL Hct 45.7 (37.0-47.0) % MCV 98.1 (80-100) fl MCH 31.5 (26-34) pg MCHC 32.2 (32-36) g/dl RDW 13.1 (11.5-14.5) % Plt Count 153 (150-375) k/mm3 MPV 11.3 H (7.4-10.4) fl Immature Gran % (Auto) 0.3 (0-0.5) % Neut % (Auto) 66.2 (45.5-73.1) % Lymph % (Auto) 21.9 (18.3-44.2) % [place] % (Auto) 8.5 (2.6-8.5) % Eos % (Auto) 2.6 (0-4.4) % Baso % (Auto) 0.5 (0.2-1.2) % Lymph # (Auto) 1.45 (0.9-3.2) K/mm3 [place] # (Auto) 0.6 (0.1-0.6) K/mm3 Eos # (Auto) 0.2 (0-0.3) K/mm3 Baso # (Auto) 0.0 (0.0-0.1) K/mm3 Abs Immat Gran (auto) 0.02 (0.00-0.031) K/mm3 Absolute Neuts (auto) 4.4 (1.3-6.7) K/mm3 Absolute Nucleated RBC 0.000 (0.0-0.012) K/mm3 Band Neutrophils % Not Reportable Nucleated RBC % 0.0 (0.0-0.2) % Platelet Estimate Adequate (Adequate) % Immature Plt Fraction 5.6 (0.9-11.2) % Schistocytes None seen PT 13.5 (11.1-14.7) Seconds INR 1.0 APTT 28.0 (22.3-36.8) Seconds Sodium 140 (137-145) mmol/L Potassium 4.5 (3.4-5.0) mmol/L Chloride 107 (98-107) mmol/L Carbon Dioxide 22 (22-30) mmol/L Anion Gap 11 (4-12) mmol/L BUN 24 H (7-17) mg/dL Creatinine 1.05 H (0.7-1.0) mg/dL Estim Creat Clear Calc 34 ml/min Estimated GFR 49 L (59 - ) Glucose 93 (65-110) mg/dL Calcium 9.6 (8.4-10.2) mg/dL Total Bilirubin 0.9 (0.2-1.3) mg/dL AST 34 (14-36) U/L ALT 17 (6-35) U/L Alkaline Phosphatase 232 H (38-126) U/L Troponin I < 0.012 < 0.012 (0.000-0.034) ng/mL Total Protein 7.5 (6.3-8.2) g/dL Albumin 4.2 (3.5-5.1) g/dL Lipase 123 (23-300) U/L Discharge Plan Discharge Clinical Impression: Chest tightness, Edema of both lower legs Patient Disposition: Home Condition: Stable Instructions: Antibiotic Form, Chest Pain (ED) Additional Instructions: Sandra was seen for chest pain. Thankfully her workup here was reassuring. No evidence of heart attack or other findings that could cause her pain. She should follow up with her primary care physician in the next 3-5 days. If she develops any new symptoms such as chest pain difficulty breathing or fevers please return to the ED for re-evaluation. Patient Language: Spanish Prescriptions: No Action acetaminophen [Tylenol Arthritis Pain] 650 mg Tablet Extended Release 650 mg PO Q8H PRN (Reason: Pain, Mild) clopidogrel 75 mg tablet 75 mg PO DAILY Qty: 90 1RF atorvastatin 40 mg tablet 40 mg PO QHS Qty: 90 1RF mirabegron [Myrbetriq] 25 mg tablet extended release 24 hr 25 mg PO DAILY Qty: 90 0RF triamcinolone acetonide 0.1 % cream 1 applic topical BID Qty: 30 0RF cholecalciferol (vitamin D3) 50 mcg (2,000 unit) capsule 50 mcg PO DAILY Qty: 90 3RF losartan 25 mg tablet 25 mg PO DAILY Qty: 90 1RF alendronate 70 mg tablet 70 mg PO WEEKLY Qty: 12 3RF Follow-up/Referrals: Cathryn Garcia MD [Primary Care Provider, Family Practice]
--- NOTE | 2025-04-27 17:05 | ECG_ITS ---
Test Date: 2025-04-27 17:11:15 Measurements Intervals [place] Rate: 76 P: 49 [place]: 154 QRS: 36 QRSD: 90 T: 21 QT: 359 QTc: 404 Interpretive Statements SINUS RHYTHM POSSIBLE LEFT ATRIAL ENLARGEMENT [-0.1mV P WAVE IN V1/V2] Compared to ECG 04/27/2025 13:23:59 No significant changes Electronically Signed On 04-28-2025 12:16:01 CDT by Jose A Elias M.D.
[2025-04-27 17:29] LABS: Troponin I < 0.012 ng/mL (0.000-0.034)
[2025-04-27 18:32] VITALS: BP 149/58; PULSE 72; RESP 18; O2SAT 98
== END 2025-04-27 18:33 | disposition home or self-care (01) ==
PROVIDERS: Emergency Provider Emergency Medicine; PCP Family Medicine
DX: R07.89 Other chest pain (principal); R60.0 Localized edema
CPT/HCPCS: 36415; 71046; 71275; 80053; 83690; 84484; 85025; 85055; 85610; 85730; 93005; 93970; 95886; 95909; 99284; Q9967

== ENCOUNTER 2025-06-09 14:13 | Outpatient (CLI) | payer OTHER, SELFPAY ==
--- OUTSIDE RECORDS SUMMARY | 2010-04-10 03:00 | XMS_ITS | Continuity of Care Document ---
Author Organization Located within [facility] Address [address] [place] [address] Phone Care Team Providers Care Charging Board Operator Name Role Phone Roque Álvarez Unavailable Unavailable Procedures Procedure Date Office/outpatient Visit, Est Eye Exam & Treatment No Script Eye Exam & Treatment Refraction Advance Directives Directive Yes / No Effective Date File Name No Information Encounters Encounter Description Practice Location Reason(s) For Visit Diagnoses Date Provider Providers Copied on Encounter Office/outpat ient Visit, Est [facility], [address] [place] [address] [address], [place], [place], [id number], tel:[phone] SEC [facility] No Information 8201 0 Henri Nevarez. [address], [place], [place], [facility], . tel:[phone] [facility], [address] [place] [address] [address], [place], [place], [id number], [place] tel:[phone] SEC [facility] No Information 9 Doiduke Nevarez. [address], [place], [place], [facility], . tel:[phone] [facility], [address] [place] [address] [address], [place], [place], [id number], tel:[phone] SEC [facility] No Information 200 7 Doiduke Nevarez. [address] , [address], [place], [address], [place]. tel:[phone] Family History Family Member Type Diagnosis Age At Onset No Information Payers Payer name Insurance type Covered democrat ID Bhavna alegre(s) [place] BL [id number] Social History Type Description Quantity Date Captured [...]
--- NOTE | ~2025-06-09 | MM_ITS ---
EXAMINATION: MM screening jaret BI w ceasar HISTORY: Screening TECHNIQUE: Craniocaudal and mediolateral oblique 3-D tomosynthesis images were obtained and synthetic 2-D images were generated. CAD analysis was submitted and interpreted. COMPARISON: 03/31/2024 BREAST PARENCHYMAL COMPOSITION: There are scattered areas of fibroglandular density. FINDINGS: There is no evidence of suspicious mass, calcification, or architectural distortion to suggest malignancy. There has been no suspicious interval change. IMPRESSION: 1. No mammographic evidence of malignancy. Recommend routine screening mammography in one year. BI-RADS Category 2: Benign finding(s) Reviewed, dictated and finalized at location Q. IMPRESSION: 1. No mammographic evidence of malignancy. Recommend routine screening mammogra phy in one year. BI-RADS Category 2: Benign finding(s)
--- OUTSIDE RECORDS SUMMARY | 2025-06-09 14:17 | XMS_ITS | Clinical Summary ---
Author Organization [facility] [address] Address [address] [place] [address] Care Team Providers Care Organ Tuner Name Role Phone Cris Garcia MD Primary [...] Reveal Implantable Loop Recorder. Dx; CVA. DOI 05/22/2020- Carelink remote monitoring. SSS (sick sinus syndrome) ([facility]/HCC) 05/27/2019 CVA, old, aphasia 05/27/2019 Chronic [...] on file Legal Sex Female 4:07 PM STRATEGIC COMMUNICATIONS SPECIALIST Gender Identity Not on file Sexual Orientation Not on file Obstetrics History Last Filed Vital Signs Vital Sign Reading Time Taken Comments Blood Pressure 144/70 06/24/2024 3:03 PM CDT Pulse 68 06/24/2024 3:03 PM CDT Temperature 37.2 C (98.9 F) 08/12/2021 5:39 PM STRATEGIC COMMUNICATIONS SPECIALIST Respiratory Rate 20 08/12/2021 5:39 PM STRATEGIC COMMUNICATIONS SPECIALIST Oxygen Saturation 97% 06/24/2024 3:03 PM CDT [...] vaccine 65+ Completed 11/24/2016, 08/[address] [place] [address] [facility] [place] [address] [facility] Care Teams Organ Tuner Relationship Specialty Start Date End Date Cris Garcia MD PCP - General Family Practice 05/29/20
--- OUTSIDE RECORDS SUMMARY | 2025-06-09 14:17 | XMS_ITS | Clinical Summary ---
Author Organization [address] [facility] [employer] Address [address] [facility] Attn: Epic Prelude ADT LAY[place]ADA[place] ROBERTOM[place]IC[place] RODRIGES [address] Care Team Providers Care Machine Records Units Supervisor Name Role Phone Unavailable Primary Care Provider [...]
--- OUTSIDE RECORDS SUMMARY | 2025-06-09 14:17 | XMS_ITS | Clinical Summary ---
Author Organization [facility] Address [address] [place] [address] Phone Care Team Providers Care Dry Cleaning Machine Operator Helper Name Role Phone Gume Gutierrez MD Primary Care Provider [phone] Allergies Active Allergy Reactions Criticality Noted Date [...] Comments Blood Pressure 124/64 08/02/2018 12:01 AM TURNING MACHINE OPERATOR HELPER Pulse 84 08/02/2018 12:01 AM TURNING MACHINE OPERATOR HELPER Temperature 36.4 C (97.5 F) 02/17/2018 12:01 AM CDT Respiratory Rate - - Oxygen Saturation - - Inhaled Oxygen Concentration - - Weight 83.5 kg (184 lb) 08/02/2018 12:01 AM TURNING MACHINE OPERATOR HELPER Height 152.4 cm (5') 08/02/2018 12:01 AM TURNING MACHINE OPERATOR HELPER Body Mass Index 35.94 08/02/2018 12:01 AM TURNING MACHINE OPERATOR HELPER Plan of Treatment Health Maintenance Due Date Last Done Comments Pneumococcal PPSV23/PCV13 65 + Years / Low and Medium Risk (1 of 2 - PCV) 1987 Influenza Vaccine (#1) [address] [facility] MEDICARE HMO Care Teams Dry Cleaning Machine Operator Helper Relationship Specialty Start Date End Date Gume Gutierrez MD [address] [place] [address] PCP - General Family Medicine 02/09/19
--- OUTSIDE RECORDS SUMMARY | 2025-06-09 14:17 | XMS_ITS | Encounter Summary ---
Author Organization [facility] Address [address] [place] [id number] Phone Care Team Providers Care Correctional Nurse Name Role Phone Gume Gutierrez MD Primary Care Provider [phone] Reason for Visit * Reason Comments Med Refill Encounter Details Date Type Department Care Team (Late st Contact Info) Description 04/01/2020 Refill [facility] Nephrology and Hypertension [address] [facility], [address] [address] Santhosh Arshad MD [address] [facility], [address] [facility] [place] [address] Social History Tobacco Use Types Packs/Day Years Used Date Smoking Tobacco: Never Smokeless Tobacco: Never Alcohol Use Standard Drinks/Week Comments Yes 0 (1 standard drink = 0.6 oz pur e alcohol) rare Comments Unknown Sex and Gender Information Value Date Recorded Sex Assigned at Not on file Legal Sex Female 10:05 AM [facility] Gender Identity Not on file Sexual Orientation Not on file documented as of this encounter Plan of Treatment Not on file documented as of this encounter Visit Diagnoses Not on filedocumented in this encounter Care Teams Correctional Nurse Relationship Specialty Start Date End Date Gume Gutierrez MD [address] [place] [address] PCP - General Family Medicine 02/09/19 documented as of this encounter
--- OUTSIDE RECORDS SUMMARY | 2025-06-09 14:17 | XMS_ITS | Encounter Summary ---
Author Organization [facility] Address [address] [place] [address] Phone Care Team Providers Care Research Home Economist Name Role Phone Gume Gutierrez MD Primary Care Provider [phone] Reason for Visit * Reason Comments Med Refill Encounter Details Date Type Department Care Team (Late st Contact Info) Description 06/11/2020 Refill [facility] Nephrology and Hypertension [address] [facility], [address] [address] Santhosh Arshad MD [address] [facility], [address] [facility] [place] [address] Social History Tobacco Use Types Packs/Day Years Used Date Smoking Tobacco: Never Smokeless Tobacco: Never Alcohol Use Standard Drinks/Week Comments Yes 0 (1 standard drink = 0.6 oz pur e alcohol) rare Comments Unknown Sex and Gender Information Value Date Recorded Sex Assigned at Not on file Legal Sex Female 10:05 AM [facility] Gender Identity Not on file Sexual Orientation Not on file documented as of this encounter Plan of Treatment Not on file documented as of this encounter Visit Diagnoses Not on filedocumented in this encounter Care Teams Research Home Economist Relationship Specialty Start Date End Date Gume Gutierrez MD [address] [place] [address] PCP - General Family Medicine 02/09/19 documented as of this encounter
== END 2025-06-09 14:14 | disposition home or self-care (01) ==
LOC: ANHFOHIMG 14:14
PROVIDERS: PCP Nurse Practitioner Family; Visit Provider Nurse Practitioner Family
DX: Z12.31 Encounter for screening mammogram for malignant neoplasm of breast (principal)
CPT/HCPCS: 77063; 77067

== ENCOUNTER 2025-08-01 14:34 | Observation (INO) | payer OTHER, SELFPAY ==
--- NOTE | ~2025-08-01 | CT_ITS ---
EXAMINATION: CT angiogram brain and neck: DATE: 08/01/2025 INDICATION: New onset of vertigo and dysphagia. TECHNIQUE: Precontrast CT brain was obtained. This was followed by CT angiogram head and neck with 100 cc of contrast and reviewed in multiple projections. COMPARISON: MRI brain with and without contrast dated 05/25/2023, CT brain and carotid artery 05/24/2023 FINDINGS: The vertebral arteries are patent in the neck on both sides. Left vertebral artery is dominant. Mild atherosclerotic disease at the bifurcation of right common carotid artery is noted producing less than 50% diameter stenosis. On the left side, partly calcified plaque is noted producing moderate, 50-69% diameter narrowing of the proximal left internal carotid artery. Vertebral and basilar arteries are patent at the skull base. Posterior cerebral arteries are opacified with left posterior cerebral arteries supplied from anterior circulation. No hemodynamically significant obstruction of the anterior cerebral, middle cerebral arteries. Mild atherosclerotic disease of intracranial internal carotid artery. Chronic small vessel ischemic change of periventricular white matter. IMPRESSION: 1. Vertebral arteries are patent in the neck on both sides. Left vertebral artery is dominant. 2. Mild, less than 50% diameter disease of the proximal right internal carotid artery in the neck with noncalcified plaque. Moderate, 50-69% disease with partially calcified atherosclerotic plaque at the proximal left internal carotid artery in the neck. 3. No major obstructive lesions of intracranial arteries of [place]. Chronic small vessel ischemic change of periventricular white matter. Reviewed, dictated and finalized at location T. D PRINTER IMPRESSION: 1. Vertebral arteries are patent in the neck on both sides. Left vertebral emperatriz ry is dominant. 2. Mild, less than 50% diameter disease of the proximal right internal carotid artery in the neck with noncalcified plaque. Moderate, 50-69% disease with part ially calcified atherosclerotic plaque at the proximal left internal carotid ar emily in the neck. 3. No major obstructive lesions of intracranial arteries of [place]. C hronic small vessel ischemic change of periventricular white matter.
--- NOTE | ~2025-08-01 | XR_ITS ---
EXAMINATION: XR chest 2V DATE: 08/02/2025 14:19 INDICATION: Prescreening TECHNIQUE: Frontal and lateral views of the chest were obtained. COMPARISON: April 27, 2025 FINDINGS: The lungs are stable with no focal acute process. Heart shadow upper limits normal. Loop recording device stable. Bones and upper abdomen also appear stable. IMPRESSION: 1. No focal acute process Reviewed, dictated and finalized at location A. TURE TESTER IMPRESSION: 1. No focal acute process
--- NOTE | ~2025-08-01 | MR_ITS ---
EXAMINATION: MRI brain with and without contrast: DATE: 08/02/2025 INDICATION: Vertigo. History of stroke. TECHNIQUE: Axial coronal and sagittal images including diffusion series, T2*gradient sequence, FLAIR sequence and pre and postcontrast series before and after administration of MultiHance IV COMPARISON: CT angiogram brain 08/01/2025 FINDINGS: No focal areas of restricted diffusion. No intracranial bleed. Extensive chronic small vessel ischemia or intraventricular white matter on the FLAIR sequence. Postcontrast series are compromised by excessive motion artifacts. No definite abnormal enhancement. IMPRESSION: 1. Significantly Limited study due to motion artifacts especially on the postcontrast study. 2. No evidence of acute infarct or bleed. Chronic small vessel ischemic change of periventricular white matter. Reviewed, dictated and finalized at location T. CTOR PROSPECT IMPRESSION: 1. Significantly Limited study due to motion artifacts especially on the postco ntrast study. 2. No evidence of acute infarct or bleed. Chronic small vessel ischemic change of periventricular white matter.
--- NOTE | ~2025-08-01 | CT_ITS ---
EXAMINATION: CT abdomen pelvis w con DATE: 08/01/2025 18:00 INDICATION: Abdominal pain, nausea and vomiting. TECHNIQUE: Computed tomography (CT) of the abdomen and pelvis was performed 100 cc Omnipaque 350 intravenous contrast. Automated exposure control and iterative reconstruction technique were employed. The dose-length product was 615.12 mGy-cm. COMPARISON: CT abdomen pelvis dated 02/10/2023. FINDINGS: Lung bases do not show acute findings. Mild calcific changes of aortic valve cusps. Good sized hiatus hernia in the lower mediastinum. Pancreas is atrophic. Gallbladder, kidneys do not show acute findings. No evidence of small bowel obstruction. Appendix is normal in size. Fecal impaction of the rectosigmoid colon. Mild diverticulosis of sigmoid colon. No pelvic mass or fluid collections. Severe multilevel degenerative disc disease in the upper and mid lumbar spine. Significant calcific changes of proximal superior mesenteric artery. IMPRESSION: 1. No acute findings noted in the upper abdomen and pelvis. 2. Hiatus hernia. 3. 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 4. Multilevel degenerative disc disease of lumbar spine. Reviewed, dictated and finalized at location T. UCE INSPECTOR
[2025-08-01 14:45] VITALS: BP 170/84; PULSE 60; RESP 14; TEMP 36.7; O2SAT 100
--- NOTE | 2025-08-01 16:51 | ED.NAVMDI ---
HPI - Nausea/Vomiting/Diarrhea General Chief complaint: Nausea/Vomiting/Diarrhea <Na Vu PA-C - Last Filed: 08/01/25 16:59> Stated complaint: N/V, weakness <Na Vu PA-C - Last Filed: 08/01/25 16:59> Time Seen by Provider: 08/01/25 16:52 <Na Vu PA-C - Last Filed: 08/01/25 16:59> Focused HPI: Patient is an 89 y/o female who presents to the ED with c/o N/V. Patient reports she began feeling unwell yesterday. Developed N/V last night, which persisted into this morning. Had difficulty keeping down medications this morning. Also reports dizziness, mild diffuse abdominal pain. Denies diarrhea, constipation. Last BM last night. Denies fever. GENERAL: Elderly, well-nourished, and in no acute distress. HEAD: Normocephalic, atraumatic. CHEST: Clear to auscultation. ?No respiratory distress. HEART: Regular rate and rhythm.? ABD: No significant focal tenderness. Normoactive BS NEURO: ?Alert and oriented x3. Patient screened in triage and initial orders placed.? ?Additional care and disposition to be based upon?diagnostic testing and treatment. <Na Vu PA-C - Last Filed: 08/01/25 16:59> Source: patient <Na Vu PA-C - Last Filed: 08/01/25 16:59> Mode of arrival: ambulatory <Na Vu PA-C - Last Filed: 08/01/25 16:59> Limitations: no limitations <FABIAN Gamino Last Filed: 08/01/25 16:59> History of Present Illness HPI Narrative: Patient has been feeling dizzy for last 2 days, much worse when she tries to get up and walk, feels off balance, has been having a lot of nausea, though she has not thrown up. <Deysi Darling MD - Last Filed: 08/01/25 22:11> Related Data Home medications: Home Medications ?Medication ?Instructions ?Recorded ?Confirmed ?Last Taken ?Type acetaminophen 650 mg 650 mg PO Q8H PRN Pain, Mild 05/06/20 06/14/25 Unknown History tablet,extended release (Tylenol Arthritis Pain) <Na Vu PA-C - Last Filed: 08/01/25 16:59> Allergies/Adverse reactions: Allergies Allergy/AdvReac Type Severity Reaction Status Date / Time succinylcholine Allergy Severe HARD TO Verified 08/01/25 14:45 WAKE UP allopurinol Allergy Unknown Unknown Verified 08/01/25 14:45 celecoxib Allergy Unknown Not Verified 08/01/25 14:45 Entered,Unknown doxycycline Allergy Unknown Not Verified 08/01/25 14:45 Entered,Unknown erythromycin base Allergy Unknown MYCINS Verified 08/01/25 14:45 levofloxacin Allergy Unknown Rash,Unknow Verified 08/01/25 14:45 n Penicillins Allergy Unknown Not Verified 08/01/25 14:45 Entered,Unknown Sulfa (Sulfonamide Allergy Unknown Not Verified 08/01/25 14:45 Antibiotics) Entered,Unknown <Na Vu PA-C - Last Filed: 08/01/25 16:59> Review of Systems Review of Systems: All systems reviewed & are unremarkable except as noted in HPI and below <Deysi Darling MD - Last Filed: 08/01/25 22:11> [facility] Past Medical History Medical History: Medical History MCI (mild cognitive impairment) Paresthesia of right upper limb Vitamin D3 deficiency Osteopenia History of TIA (transient ischemic attack) and stroke History of cerebrovascular accident Loss of right hand dexterity Class 1 obesity with body mass index (BMI) of 31.0 to 31.9 in adult Degenerative disc disease Anemia Cough Polyarthralgia Status post placement of implantable loop recorder Follows with Dr Basurto q 6 months History of PSVT (paroxysmal supraventricular tachycardia) Overactive bladder Personal history of transient ischemic attack (TIA), and cerebral infarction without residual deficits History of esophageal dilatation Gout Shingles TIA (transient ischemic attack) (~05/2023) GERD without esophagitis History of DVT (deep vein thrombosis) Hypertension, essential, benign Lesion of hard palate Mixed hyperlipidemia History of unsteady gait <Na Vu PA-C - Last Filed: 08/01/25 16:59> Surgical History Surgical History: Surgical History H/O dilation and curettage S/P rotator cuff repair Hx of total knee arthroplasty Left History of cataract extraction <Na Vu PA-C - Last Filed: 08/01/25 16:59> Family History Family History: Family History Father Family history of coronary artery disease Hypertension Mother Family history of coronary artery disease Hypertension Sibling Dementia Daughter Breast cancer bilateral mastectomy <Na Vu PA-C - Last Filed: 08/01/25 16:59> Social History Social History: Social History Social History: The patient lives with her daughter. 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 Her son Abel is a durable power trust and estates attorney for healthcare. And she desires to be a full code. She denies any alcohol, marijuana, tobacco Nor illicit drugs. Smoking status: Never smoker Second hand tobacco smoke exposure: No Alcohol intake: current Alcohol use details: once a month Substance use: never Other substance usage details: Rarely Lack of Transportation: No Lack of Food: Never True Current Housing: I Have Housing Concerned About Future Housing: No Difficulty Paying Gas/Electric Bills: No Difficulty Paying for Meds: No Currently Unemployed: No Education: Don't Know Difficulty w/ Childcare or Family Care: No Living arrangements: with family Gender identity (if verbalized by the patient): Female Spiritual care concerns: No <Na Vu PA-C - Last Filed: 08/01/25 16:59> Exam Narrative: EXAMINATION OF ORGAN SYSTEMS/BODY AREAS: Constitutional: Vital signs per nursing GENERAL: Appears uncomfortable HEAD: Normal with no signs of head trauma. EYES: EOMI, conjunctiva normal ENT: Hearing grossly intact LUNGS: Nonlabored breathing. HEART: Regular rate and rhythm ABD: Soft, nontender to palpation EXT: Normal range of motion SKIN: No rashes or lesions. NEURO: Alert. No gross focal sensory or strength deficits. PSYCH: Normal affect <Deysi Darling MD - Last Filed: 08/01/25 22:11> Course Vital Signs Vital signs: Vital Signs Temperature 98.0 F 08/01/25 14:45 Pulse Rate 60 08/01/25 14:45 Respiratory Rate 14 08/01/25 14:45 Blood Pressure 170/84 H 08/01/25 14:45 Pulse Oximetry 100 08/01/25 14:45 Oxygen Delivery Room Air 08/01/25 14:45 Temperature 98.0 F 08/01/25 14:45 Pulse Rate 72 08/01/25 21:53 Respiratory Rate 18 08/01/25 21:53 Blood Pressure 144/79 H 08/01/25 21:53 Pulse Oximetry 98 08/01/25 21:53 Oxygen Delivery Room Air 08/01/25 14:45 <Na Vu PA-C - Last Filed: 08/01/25 16:59> Vital Signs Temperature 98.0 F 08/01/25 14:45 Pulse Rate 60 08/01/25 14:45 Respiratory Rate 14 08/01/25 14:45 Blood Pressure 170/84 H 08/01/25 14:45 Pulse Oximetry 100 08/01/25 14:45 Oxygen Delivery Room Air 08/01/25 14:45 Temperature 98.0 F 08/01/25 14:45 Pulse Rate 72 08/01/25 21:53 Respiratory Rate 18 08/01/25 21:53 Blood Pressure 144/79 H 08/01/25 21:53 Pulse Oximetry 98 08/01/25 21:53 Oxygen Delivery Room Air 08/01/25 14:45 <Deysi Darling MD - Last Filed: 08/01/25 22:11> [facility] Narrative Medical decision making narrative: MSE by MARISSA in triage <Na Vu PA-C - Last Filed: 08/01/25 16:59> MSE by MARISSA in triage Patient presenting with sensation vertigo, accompanied by nausea vomiting, reportedly this morning was having trouble swallowing her medications. CT abdomen/pelvis, CTA head and neck without acute abnormality. On exam she does appear slightly uncomfortable, I did treat her symptomatically with Valium, Zofran, fluids, and on re-evaluation, she does feel better. She has no vertigo when she is at rest. I did trial ambulation here unfortunately she got quite dizzy again and had to take multiple stops. At this point, in discussion patient and family at bedside, will be admitting her, discussed with neurologist for consult, discussed with hospitalist for admission. <Deysi Darling MD - Last Filed: 08/01/25 22:11> Differential Diagnosis Differential Diagnosis: BPPV, gastroenteritis, mass, CVA <Deysi Darling MD - Last Filed: 08/01/25 22:11> Lab Data Result diagrams: 08/01/25 17:09 08/01/25 17:09 <Na Vu PA-C - Last Filed: 08/01/25 16:59> Labs: Lab Results 08/01/25 08/01/25 Range/Units 17:09 20:29 WBC 5.0 (4.5-10.0) K/mm3 RBC 4.61 (4.2-5.4) M/mm3 Hgb 14.9 (12.0-15.0) g/dL Hct 45.1 (37.0-47.0) % MCV 97.8 (80-100) fl MCH 32.3 (26-34) pg MCHC 33.0 (32-36) g/dl RDW 13.6 (11.5-14.5) % Plt Count 167 (150-375) k/mm3 MPV 10.7 H (7.4-10.4) fl Immature Gran % (Auto) 0.2 (0-0.5) % Neut % (Auto) 64.1 (45.5-73.1) % Lymph % (Auto) 27.5 (18.3-44.2) % [place] % (Auto) 6.4 (2.6-8.5) % Eos % (Auto) 1.2 (0-4.4) % Baso % (Auto) 0.6 (0.2-1.2) % Lymph # (Auto) 1.37 (0.9-3.2) K/mm3 [place]ahan # (Auto) 0.3 (0.1-0.6) K/mm3 Eos # (Auto) 0.1 (0-0.3) K/mm3 Baso # (Auto) 0.0 (0.0-0.1) K/mm3 Abs Immat Gran (auto) 0.01 (0.00-0.031) K/mm3 Absolute Neuts (auto) 3.2 (1.3-6.7) K/mm3 Absolute Nucleated RBC 0.000 (0.0-0.012) K/mm3 Nucleated RBC % 0.0 (0.0-0.2) % Sodium 141 (137-145) mmol/L Potassium 4.2 (3.4-5.0) mmol/L Chloride 108 H (98-107) mmol/L Carbon Dioxide 26 (22-30) mmol/L Anion Gap 7 (4-12) mmol/L BUN 24 H (7-17) mg/dL Creatinine 1.09 H (0.7-1.0) mg/dL Estim Creat Clear Calc Not Reportable Estimated GFR 47 L (59 - ) Glucose 103 (65-110) mg/dL Lactic Acid 1.0 (0.7-2.0) mmol/L Calcium 9.4 (8.4-10.2) mg/dL Total Bilirubin 0.8 (0.2-1.3) mg/dL AST 36 (14-36) U/L ALT 24 (6-35) U/L Alkaline Phosphatase 163 H (38-126) U/L Total Protein 7.7 (6.3-8.2) g/dL Albumin 4.2 (3.5-5.1) g/dL Lipase 56 (23-300) U/L Urine Color Yellow (Yellow) Urine Appearance Clear (Clear) Urine pH 7.0 (5.0-9.0) Ur Specific [place] > 1.045 H (1.001-1.035) Urine Protein Negative (Negative) mg/dL Urine Glucose (UA) Negative (Negative) mg/dL Urine Ketones Negative (Negative) mg/dL Ur Blood (Man) Negative (Negative) Urine Nitrate Negative (Negative) Urine Bilirubin Negative (Negative) Urine Urobilinogen 0.2 (<2.0) mg/dL Leukocyte Esterase Rfl Negative (Negative) VINI/UL <Na Vu PA-C - Last Filed: 08/01/25 16:59> Lab Results 08/01/25 08/01/25 Range/Units 17:09 20:29 WBC 5.0 (4.5-10.0) K/mm3 RBC 4.61 (4.2-5.4) M/mm3 Hgb 14.9 (12.0-15.0) g/dL Hct 45.1 (37.0-47.0) % MCV 97.8 (80-100) fl MCH 32.3 (26-34) pg MCHC 33.0 (32-36) g/dl RDW 13.6 (11.5-14.5) % Plt Count 167 (150-375) k/mm3 MPV 10.7 H (7.4-10.4) fl Immature Gran % (Auto) 0.2 (0-0.5) % Neut % (Auto) 64.1 (45.5-73.1) % Lymph % (Auto) 27.5 (18.3-44.2) % [place] % (Auto) 6.4 (2.6-8.5) % Eos % (Auto) 1.2 (0-4.4) % Baso % (Auto) 0.6 (0.2-1.2) % Lymph # (Auto) 1.37 (0.9-3.2) K/mm3 [place] # (Auto) 0.3 (0.1-0.6) K/mm3 Eos # (Auto) 0.1 (0-0.3) K/mm3 Baso # (Auto) 0.0 (0.0-0.1) K/mm3 Abs Immat Gran (auto) 0.01 (0.00-0.031) K/mm3 Absolute Neuts (auto) 3.2 (1.3-6.7) K/mm3 Absolute Nucleated RBC 0.000 (0.0-0.012) K/mm3 Nucleated RBC % 0.0 (0.0-0.2) % Sodium 141 (137-145) mmol/L Potassium 4.2 (3.4-5.0) mmol/L Chloride 108 H (98-107) mmol/L Carbon Dioxide 26 (22-30) mmol/L Anion Gap 7 (4-12) mmol/L BUN 24 H (7-17) mg/dL Creatinine 1.09 H (0.7-1.0) mg/dL Estim Creat Clear Calc Not Reportable Estimated GFR 47 L (59 - ) Glucose 103 (65-110) mg/dL Lactic Acid 1.0 (0.7-2.0) mmol/L Calcium 9.4 (8.4-10.2) mg/dL Total Bilirubin 0.8 (0.2-1.3) mg/dL AST 36 (14-36) U/L ALT 24 (6-35) U/L Alkaline Phosphatase 163 H (38-126) U/L Total Protein 7.7 (6.3-8.2) g/dL Albumin 4.2 (3.5-5.1) g/dL Lipase 56 (23-300) U/L Urine Color Yellow (Yellow) Urine Appearance Clear (Clear) Urine pH 7.0 (5.0-9.0) Ur Specific [place] > 1.045 H (1.001-1.035) Urine Protein Negative (Negative) mg/dL Urine Glucose (UA) Negative (Negative) mg/dL Urine Ketones Negative (Negative) mg/dL Ur Blood (Man) Negative (Negative) Urine Nitrate Negative (Negative) Urine Bilirubin Negative (Negative) Urine Urobilinogen 0.2 (<2.0) mg/dL Leukocyte Esterase Rfl Negative (Negative) VINI/UL <Deysi Darling MD - Last Filed: 08/01/25 22:11> Imaging Data Radiologist's impression: ITS Impressions Abdomen/Pelvis CT 08/01/25 18:01 IMPRESSION: 1. No acute findings noted in the upper abdomen and pelvis. 2. Hiatus hernia. 3. 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 4. Multilevel degenerative disc disease of lumbar spine. Head/Neck CTA 08/01/25 20:12 IMPRESSION: 1. Vertebral arteries are patent in the neck on both sides. Left vertebral artery is dominant. 2. Mild, less than 50% diameter disease of the proximal right internal carotid artery in the neck with noncalcified plaque. Moderate, 50-69% disease with partially calcified atherosclerotic plaque at the proximal left internal carotid artery in the neck. 3. No major obstructive lesions of intracranial arteries of [place]. Chronic small vessel ischemic change of periventricular white matter. <Na Vu PA-C - Last Filed: 08/01/25 16:59> ITS Impressions Abdomen/Pelvis CT 08/01/25 18:01 IMPRESSION: 1. No acute findings noted in the upper abdomen and pelvis. 2. Hiatus hernia. 3. 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 4. Multilevel degenerative disc disease of lumbar spine. Head/Neck CTA 08/01/25 20:12 IMPRESSION: 1. Vertebral arteries are patent in the neck on both sides. Left vertebral artery is dominant. 2. Mild, less than 50% diameter disease of the proximal right internal carotid artery in the neck with noncalcified plaque. Moderate, 50-69% disease with partially calcified atherosclerotic plaque at the proximal left internal carotid artery in the neck. 3. No major obstructive lesions of intracranial arteries of [place]. Chronic small vessel ischemic change of periventricular white matter. <Deysi Darling MD - Last Filed: 08/01/25 22:11> Discharge Plan Discharge Clinical Impression: Vertigo, Nausea and vomiting <Na Vu PA-C - Last Filed: 08/01/25 16:59> Patient Disposition: Still a Patient <Na Vu PA-C - Last Filed: 08/01/25 16:59> Condition: Stable <FABIAN Gamino Last Filed: 08/01/25 16:59> Patient Language: Thai <Na Vu PA-C - Last Filed: 08/01/25 16:59> Prescriptions: No Action diclofenac sodium 1 % gel 2 g topical QID PRN (Reason: arthritis pain) Qty: 100 0RF Rx Instructions: apply to single elbow, wrist or hand; for hand includes palm/fingers/back of hand mirabegron [Myrbetriq] 50 mg tablet extended release 24 hr 50 mg PO DAILY Qty: 90 1RF triamcinolone acetonide 0.1 % cream 1 applic topical BID Qty: 30 0RF glucosamine sulfate 500 mg capsule 500 mg PO DAILY Qty: 90 0RF Rx Instructions: administer with a meal acetaminophen [Tylenol Arthritis Pain] 650 mg Tablet Extended Release 650 mg PO Q8H PRN (Reason: Pain, Mild) losartan 25 mg tablet 25 mg PO DAILY Qty: 90 1RF alendronate 70 mg tablet 70 mg PO WEEKLY Qty: 12 3RF cholecalciferol (vitamin D3) 50 mcg (2,000 unit) capsule 50 mcg PO BID Qty: 180 1RF clopidogrel 75 mg tablet 75 mg PO DAILY Qty: 90 1RF gabapentin 100 mg capsule 100 mg PO BID PRN (Reason: nerve pain) Qty: 180 1RF atorvastatin 40 mg tablet 40 mg PO QHS Qty: 90 1RF <Na Vu PA-C - Last Filed: 08/01/25 16:59> Follow-up/Referrals: Cathryn Garcia MD [Primary Care Provider, Family Practice] <Na Vu PA-C - Last Filed: 08/01/25 16:59>
--- OUTSIDE RECORDS SUMMARY | 2025-08-01 16:56 | XMS_ITS | Clinical Summary ---
[facility] Address [address] [facility] Attn: Epic Prelude ADT LAYLADANA ROBERTOMILLICENT RODRIGES [address] Care Team Providers Care Cartographic Designer Name Role Phone Unavailable Primary Care Provider [...]
--- OUTSIDE RECORDS SUMMARY | 2025-08-01 16:56 | XMS_ITS | Clinical Summary ---
Author Organization [facility] Address [address] [place] [address] Phone Care Team Providers Care Rough Rice Grader Name Role Phone Gume Gutierrez MD Primary Care Provider [phone] Allergies Active Allergy Reactions Criticality Noted Date [...] Comments Blood Pressure 124/64 08/02/2018 12:01 AM [employer] Pulse 84 08/02/2018 12:01 AM [employer] Temperature 36.4 C (97.5 F) 02/17/2018 12:01 AM CDT Respiratory Rate - - Oxygen Saturation - - Inhaled Oxygen Concentration - - Weight 83.5 kg (184 lb) 08/02/2018 12:01 AM [employer] Height 152.4 cm (5') 08/02/2018 12:01 AM [employer] Body Mass Index 35.94 08/02/2018 12:01 AM [employer] Plan of Treatment Health Maintenance Due Date Last Done Comments Pneumococcal PPSV23/PCV13 65 + Years / Low and Medium Risk (1 of 2 - PCV) 1987 Influenza Vaccine (#1) 2025 Insurance [facility] [place] [address] Care Teams Rough Rice Grader Relationship Specialty Start Date End Date Gume Gutierrez MD [address] [place] [address] PCP - General Family Medicine 02/09/19
--- OUTSIDE RECORDS SUMMARY | 2025-08-01 16:56 | XMS_ITS | Encounter Summary ---
Author Organization [facility] Address [address] [place] [address] Phone Care Team Providers Care Windows System Admin Name Role Phone Gume Gutierrez MD Primary Care Provider [phone] Reason for Visit * Reason Comments Med Refill Encounter Details Date Type Department Care Team (Late st Contact Info) Description 04/01/2020 Refill [facility]pertension 1034 [facility], [address] [address] Santhosh Arshad MD 1034 [facility], SUITE [facility] [place] [address] Social History Tobacco Use Types Packs/Day Years Used Date Smoking Tobacco: Never Smokeless Tobacco: Never Alcohol Use Standard Drinks/Week Comments Yes 0 (1 standard drink = 0.6 oz pur e alcohol) rare Comments Unknown Sex and Gender Information Value Date Recorded Sex Assigned at Not on file Legal Sex Female 10:05 AM [facility] Gender Identity Not on file Sexual Orientation Not on file documented as of this encounter Plan of Treatment Not on file documented as of this encounter Visit Diagnoses Not on filedocumented in this encounter Care Teams Windows System Admin Relationship Specialty Start Date End Date Gume Gutierrez MD [address] [place] [address] PCP - General Family Medicine 02/09/19 documented as of this encounter
--- OUTSIDE RECORDS SUMMARY | 2025-08-01 16:56 | XMS_ITS | Clinical Summary ---
Author Organization [facility] [address] Address [address] [place] [address] Care Team Providers Care Sweet Pickle Maker Name Role Phone Cris Garcia MD Primary [...] Carelink remote monitoring. 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 PM WATER MECHANIC Gender Identity Not on file Sexual Orientation Not on file Last Filed Vital Signs Vital Sign Reading Time Taken Comments Blood Pressure 144/70 06/24/2024 3:03 PM CDT Pulse 68 06/24/2024 3:03 PM CDT Temperature 37.2 C (98.9 F) 08/12/2021 5:39 PM WATER MECHANIC Respiratory Rate 20 08/12/2021 5:39 PM WATER MECHANIC Oxygen Saturation 97% 06/24/2024 3:03 PM CDT [...] vaccine 65+ Completed 11/24/2016, 08/[address] [place] [address] [facility] [address] [facility] Care Teams Sweet Pickle Maker Relationship Specialty Start Date End Date Cris Garcia MD PCP - General Family Practice 05/29/20
--- OUTSIDE RECORDS SUMMARY | 2025-08-01 16:56 | XMS_ITS | Encounter Summary ---
Author Organization [facility] Address [address] [place] [address] Phone Care Team Providers Care Tire Setter Name Role Phone Gume Gutierrez MD Primary Care Provider [phone] Reason for Visit * Reason Comments Med Refill Encounter Details Date Type Department Care Team (Late st Contact Info) Description 06/11/2020 Refill [facility] Nephrology and Hypertension 1034 [facility], [address] [address] Santhosh Arshad MD [address] [facility], SUITE [facility] [place] [address] Social History Tobacco Use Types Packs/Day Years Used Date Smoking Tobacco: Never Smokeless Tobacco: Never Alcohol Use Standard Drinks/Week Comments Yes 0 (1 standard drink = 0.6 oz pur e alcohol) rare Comments Unknown Sex and Gender Information Value Date Recorded Sex Assigned at Not on file Legal Sex Female 10:05 AM [facility] Gender Identity Not on file Sexual Orientation Not on file documented as of this encounter Plan of Treatment Not on file documented as of this encounter Visit Diagnoses Not on filedocumented in this encounter Care Teams Tire Setter Relationship Specialty Start Date End Date Gume Gutierrez MD [address] [place] [address] PCP - General Family Medicine 02/09/19 documented as of this encounter
[2025-08-01 17:17] LABS: Hematocrit 45.1 % (37.0-47.0); Hemoglobin 14.9 g/dL (12.0-15.0); Immature Granulocyte Percent A 0.2 % (0-0.5); Lymphocytes Absolute Auto 1.37 K/mm3 (0.9-3.2); Mean Corpuscular HGB Conc 33.0 g/dl (32-36); Mean Corpuscular Hemoglobin 32.3 pg (26-34); Mean Corpuscular Volume 97.8 fl (80-100); Nucleated Red Blood Cells Absolute Auto 0.000 K/mm3 (0.0-0.012); Nucleated Red Blood Cells Perc 0.0 % (0.0-0.2); Platelet Count Result 167 k/mm3 (150-375); Red Blood Count 4.61 M/mm3 (4.2-5.4); White Blood Count 5.0 K/mm3 (4.5-10.0)
[2025-08-01 17:31] LABS: Alanine Aminotransferase 24 U/L (6-35); Albumin Level 4.2 g/dL (3.5-5.1); Alkaline Phosphatase 163 U/L (38-126); Anion Gap 7 mmol/L (4-12); Aspartate Amino Transferase 36 U/L (14-36); Bilirubin,Total 0.8 mg/dL (0.2-1.3); Blood Urea Nitrogen 24 mg/dL (7-17); Calcium 9.4 mg/dL (8.4-10.2); Carbon Dioxide 26 mmol/L (22-30); Chloride 108 mmol/L (98-107); Estimated Glomerular Filt Rate 47; Glucose 103 mg/dL (65-110); Lipase 56 U/L (23-300); Potassium 4.2 mmol/L (3.4-5.0); Sodium 141 mmol/L (137-145); Total Protein 7.7 g/dL (6.3-8.2)
[2025-08-01 18:23] VITALS: BP 181/80; PULSE 68; RESP 15; O2SAT 98
[2025-08-01] MEDS: PANTOPRAZOLE SODIUM IV 40 MG VIAL IV PUSH (19:06)
[2025-08-01] MEDS: ONDANSETRON INJ 4 MG/2 ML VIAL IV PUSH (19:06)
[2025-08-01 19:09] VITALS: BP 189/72; PULSE 75; RESP 20; O2SAT 99
--- OUTSIDE RECORDS SUMMARY | 2025-08-01 19:16 | XMS_ITS | Encounter Summary ---
Author Organization [facility] Address [address] [place] [address] Phone Care Team Providers Care Video Production Assistant Name Role Phone Gume Gutierrez MD Primary Care Provider [phone] Reason for Visit * Reason Comments Med Refill Encounter Details Date Type Department Care Team (Late st Contact Info) Description 06/11/2020 Refill [facility] Nephrology and Hypertension 1034 [facility], [address] [address] Santhosh Arshad MD 1034 [facility], SUITE [facility] [place] [address] Social History Tobacco Use Types Packs/Day Years Used Date Smoking Tobacco: Never Smokeless Tobacco: Never Alcohol Use Standard Drinks/Week Comments Yes 0 (1 standard drink = 0.6 oz pur e alcohol) rare Comments Unknown Sex and Gender Information Value Date Recorded Sex Assigned at Not on file Legal Sex Female 10:05 AM [facility] Gender Identity Not on file Sexual Orientation Not on file documented as of this encounter Plan of Treatment Not on file documented as of this encounter Visit Diagnoses Not on filedocumented in this encounter Care Teams Video Production Assistant Relationship Specialty Start Date End Date Gume Gutierrez MD [address] [place] [address] PCP - General Family Medicine 02/09/19 documented as of this encounter
--- OUTSIDE RECORDS SUMMARY | 2025-08-01 19:16 | XMS_ITS | Clinical Summary ---
Author Organization [facility] [address] Address [address] [place] [address] Care Team Providers Care Control Operator Name Role Phone Cris Garcia MD Primary [...] Carelink remote monitoring. 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 [address] [facility] Care Teams Control Operator Relationship Specialty Start Date End Date Cris Garcia MD PCP - General Family Practice 05/29/20
--- OUTSIDE RECORDS SUMMARY | 2025-08-01 19:16 | XMS_ITS | Encounter Summary ---
Author Organization [facility] Address [address] [place] [id number] Phone Care Team Providers Care Drawbench Operator Name Role Phone Gume Gutierrez MD Primary Care Provider [phone] Reason for Visit * Reason Comments Med Refill Encounter Details Date Type Department Care Team (Late st Contact Info) Description 04/01/2020 Refill [facility] Nephrology and Hypertension [address] [facility], [address] [address] Santhosh Arshad MD [address] [facility], [address]ITE [facility] [place] [address] Social History Tobacco Use Types Packs/Day Years Used Date Smoking Tobacco: Never Smokeless Tobacco: Never Alcohol Use Standard Drinks/Week Comments Yes 0 (1 standard drink = 0.6 oz pur e alcohol) rare Comments Unknown Sex and Gender Information Value Date Recorded Sex Assigned at Not on file Legal Sex Female 10:05 AM [facility] Gender Identity Not on file Sexual Orientation Not on file documented as of this encounter Plan of Treatment Not on file documented as of this encounter Visit Diagnoses Not on filedocumented in this encounter Care Teams Drawbench Operator Relationship Specialty Start Date End Date Gume Gutierrez MD [address] [place] [address] PCP - General Family Medicine 02/09/19 documented as of this encounter
--- OUTSIDE RECORDS SUMMARY | 2025-08-01 19:16 | XMS_ITS | Clinical Summary ---
Author Organization [facility] Address [address] [place] [id number] Phone Care Team Providers Care Coding Auditor Name Role Phone Gume Gutierrez MD Primary Care Provider [phone] Allergies Active Allergy Reactions Criticality Noted Date [...] Comments Blood Pressure 124/64 08/02/2018 12:01 AM ENGINEERING TEAM SUPERVISOR Pulse 84 08/02/2018 12:01 AM ENGINEERING TEAM SUPERVISOR Temperature 36.4 C (97.5 F) 02/17/2018 12:01 AM CDT Respiratory Rate - - Oxygen Saturation - - Inhaled Oxygen Concentration - - Weight 83.5 kg (184 lb) 08/02/2018 12:01 AM ENGINEERING TEAM SUPERVISOR Height 152.4 cm (5') 08/02/2018 12:01 AM ENGINEERING TEAM SUPERVISOR Body Mass Index 35.94 08/02/2018 12:01 AM ENGINEERING TEAM SUPERVISOR Plan of Treatment Health Maintenance Due Date Last Done Comments Pneumococcal PPSV23/PCV13 65 + Years / Low and Medium Risk (1 of 2 - PCV) 1987 Influenza Vaccine (#1) 2025 Insurance [facility] MEDICARE HMO Care Teams Coding Auditor Relationship Specialty Start Date End Date Gume Gutierrez MD [address] [place] [address] PCP - General Family Medicine 02/09/19
[2025-08-01] MEDS: LACTATED RINGERS 1,000 ML 999 ML IV CONT (19:26)
[2025-08-01] MEDS: diazePAM INJ (*CRX) 10 MG/2 ML SYRINGE 2.5 MG IV PUSH (19:26)
--- NOTE | 2025-08-01 19:27 | PC.NURSE ---
Pt verbally tstates she cannot provide urine sample at this time. Straight cath mentioned. Pt refuses at this time.
--- NOTE | 2025-08-01 19:56 | PC.NURSE ---
Pt. to Ct.
[2025-08-01 20:36] LABS: Add Urine Microscopic? NO; Appearance Urine Clear (Clear); Glucose Urine UA Negative (Negative); Leukocyte Esterase Ur Negative LEU/UL (Negative); Nitrate Urine Negative (Negative); Specific Grav Ur > 1.045 (1.001-1.035)
[2025-08-01 21:53] VITALS: BP 144/79; PULSE 72; RESP 18; O2SAT 98
[2025-08-01 22:51] VITALS: BP 152/81; PULSE 68; RESP 24; O2SAT 99
[2025-08-02] VITALS (8 sets, daily range): BP systolic 133–156; BP diastolic 61–85; PULSE 59–76; RESP 16–25; TEMP 36.3–36.8; O2SAT 95–100; BMI 34.7
--- NOTE | 2025-08-02 00:19 | WPCEDHO ---
ED Hand Off Checklist All vitals saved: Yes IV Site documented:Yes All med administrations documented:Yes Triage Note Triage Note here per [facility] with c 08/01/25 18:23 /o NV since yesterday. difficult time taking morning medications and difficulty clearing throat. agree with triage note Allergies succinylcholine Allergy (Severe, Verified 08/01/25 14:45) HARD TO WAKE UP allopurinol Allergy (Unknown, Verified 08/01/25 14:45) Unknown celecoxib Allergy (Unknown, Verified 08/01/25 14:45) Not Entered,Unknown doxycycline Allergy (Unknown, Verified 08/01/25 14:45) Not Entered,Unknown erythromycin base Allergy (Unknown, Verified 08/01/25 14:45) MYCINS levofloxacin Allergy (Unknown, Verified 08/01/25 14:45) Rash,Unknown Penicillins Allergy (Unknown, Verified 08/01/25 14:45) Not Entered,Unknown Sulfa (Sulfonamide Antibiotics) Allergy (Unknown, Verified 08/01/25 14:45) Not Entered,Unknown Family History (Last Reviewed 06/14/25 @ 15:34 by Lina Akers MA) Father Family history of coronary artery disease Hypertension Mother Family history of coronary artery disease Hypertension Sibling Dementia Daughter Breast cancer Administered/Completed Medications Discontinued Medications Diazepam (Diazepam Inj (*Crx) 10 Mg/2 Ml Syringe) 2.5 mg IV PUSH ONCE ONE Stop: 08/01/25 19:07 Last Admin: 08/01/25 19:26 Dose: 2.5 mg Documented By: CHRISTEL Lactated Ringer's (Lr - Lactated Ringers Iv) 1,000 mls @ 999 mls/hr IV CONT .Q1H1M STA Stop: 08/01/25 20:07 Last Infusion: 08/02/25 00:18 Dose: Infused Documented By: Admin: 08/01/25 19:26 Dose: 999 mls/hr Documented By: CHRISTEL Ondansetron HCl (Ondansetron Inj 4 Mg/2 Ml Vial) 4 mg IV PUSH ONCE STA Stop: 08/01/25 18:34 Last Admin: 08/01/25 19:06 Dose: 4 mg Documented By: ANT Pantoprazole Sodium (Pantoprazole Sodium Iv 40 Mg Vial) 40 mg IV PUSH ONCE STA Stop: 08/01/25 18:36 Last Admin: 08/01/25 19:06 Dose: 40 mg Documented By: ANT Notes 08/01/25 19:56 Nurse Note by Carol Estrada Pt. to Ct. Initialized on 08/01/25 19:56 - END OF NOTE 08/01/25 19:27 Nurse Note by Madhavi Mayo Pt verbally tstates she cannot provide urine sample at this time. Straight cath mentioned. Pt refuses at this time. Initialized on 08/01/25 19:27 - END OF NOTE Interventions/Assessments IV / Saline Lock, Insert Start: 08/01/25 14:45 Freq: Status: Active Protocol: Document 08/01/25 17:17 AJW (Rec: 08/01/25 17:18 AJW [id number]) IV Assessment Peripheral Access Left Wrist IV Catheter Access Initiated Before Arrival IV Insertion Date 08/01/25 Catheter Gauge 20 IV Site Assessment WNL IV Care and WNL Maintenance PA: Gastrointestinal Assessment Start: 08/01/25 14:45 Freq: Status: Active Protocol: Document 08/01/25 18:26 ANT (Rec: 08/01/25 18:27 ANT [id number]) GI Assessment Gastrointestinal Nausea,Vomiting Symptoms Description Soft,Non-Tender All Quadrants Bowel Sounds Active Last Vital Signs Temperature 98.0 F 08/01/25 14:45 Pulse Rate 68 08/01/25 22:51 Respiratory Rate 24 H 08/01/25 22:51 Pulse Oximetry 99 08/01/25 22:51 Blood Pressure 152/81 H 08/01/25 22:51 Blood Pressure Mean 104 08/01/25 22:51 Oxygen Delivery Room Air 08/01/25 14:45 Weight 75 kg 08/01/25 18:23 Last Result - Abnormals Only MPV 10.7 fl (7.4-10.4) H 08/01/25 17:09 Chloride 108 mmol/L (98-107) H 08/01/25 17:09 BUN 24 mg/dL (7-17) H 08/01/25 17:09 Creatinine 1.09 mg/dL (0.7-1.0) H 08/01/25 17:09 Estimated GFR 47 (59-) L 08/01/25 17:09 Alkaline Phosphatase 163 U/L (38-126) H 08/01/25 17:09 Ur Specific [place] > 1.045 (1.001-1.035) H 08/01/25 20:29 Most Recent Suicide Severity Rating Suicide Severity Rating NO RISK INDICATED 08/01/25 18:23
--- NOTE | 2025-08-02 08:50 | P.HP_ITS ---
H&P: HPI History of Present Illness Date/Time: 08/02/25 08:50 Chief Complaint: Nausea/vomiting/weakness Narrative: Sandra Stein is an 89-year-old female with a past medical history of HTN, dyslipidemia, paroxysmal SVT, s/p implantable loop recorder, Hx of multiple strokes and TIAs, CKD 3, GERD, gout, chronic low back pain due to DDD, overactive bladder, osteopenia, history of DVT, osteoarthritis and unsteady gait who presents to the hospital with nausea/vomiting and dizziness that started in the evening of 07/31 and has progressively gotten worse over the 24 hours prior to admission. She states that on Thursday she went out to eat at a restaurant and several hours later her symptoms started. She states that her vomiting started first and became dizzy after this started. She also started having generalized epigastric abdominal discomfort that subsided minutes after any episode of vomiting. Denies any excessive alcohol use, recent travel or hospitalizations. ED workup: 98.0 F, 60HR, 14RR, 100% on RA, 144/79 WBC 5.0, Hgb 14.9, Hct 45.1, Plt 167, Na 141, K 4.2, BUN 24, Cr 1.09, Glucose 103, Lactic Acid 1.0, LFTs wnl, Lipase 56 UA: not indicative of infection Abd/Pelvis: No acute findings noted in the upper abdomen and pelvis. Hiatus hernia. 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 Multilevel degenerative disc disease of lumbar spine. Head CTA: Review of Systems Review of Systems: All systems reviewed & are unremarkable except as noted in HPI and below PMFSH Past Medical History Medical History MCI (mild cognitive impairment) Paresthesia of right upper limb Vitamin D3 deficiency Osteopenia History of TIA (transient ischemic attack) and stroke History of cerebrovascular accident Loss of right hand dexterity Class 1 obesity with body mass index (BMI) of 31.0 to 31.9 in adult Degenerative disc disease Anemia Cough Polyarthralgia Status post placement of implantable loop recorder Follows with Dr Basurto q 6 months History of PSVT (paroxysmal supraventricular tachycardia) Overactive bladder Personal history of transient ischemic attack (TIA), and cerebral infarction without residual deficits History of esophageal dilatation Gout Shingles TIA (transient ischemic attack) (~05/2023) GERD without esophagitis History of DVT (deep vein thrombosis) Hypertension, essential, benign Lesion of hard palate Mixed hyperlipidemia History of unsteady gait Surgical History Surgical History H/O dilation and curettage S/P rotator cuff repair Hx of total knee arthroplasty Left History of cataract extraction Family History Family History Father Family history of coronary artery disease Hypertension Mother Family history of coronary artery disease Hypertension Sibling Dementia Daughter Breast cancer bilateral mastectomy Social History Social History Social History: The patient lives with her daughter. 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 Her son Abel is a durable power entertainer or variety artist for healthcare. And she desires to be a full code. She denies any alcohol, marijuana, tobacco Nor illicit drugs. Smoking status: Never smoker Second hand tobacco smoke exposure: No Alcohol intake: current Alcohol use details: once a month Substance use: never Other substance usage details: Rarely Lack of Transportation: No Lack of Food: Never True Current Housing: Decline to Answer Concerned About Future Housing: Decline to Answer Difficulty Paying Gas/Electric Bills: Decline to Answer Difficulty Paying for Meds: Decline to Answer Currently Unemployed: Decline to Answer Education: Decline to Answer Difficulty w/ Childcare or Family Care: Decline to Answer Living arrangements: with family Gender identity (if verbalized by the patient): Female Spiritual care concerns: No Meds Home Medications and Allergies Home Medications ?Medication ?Instructions ?Recorded ?Confirmed ?Type acetaminophen 650 mg 650 mg PO Q8H PRN Pain, Mild 05/06/20 08/02/25 History tablet,extended release (Tylenol Arthritis Pain) losartan 25 mg tablet 25 mg PO DAILY #90 tabs 12/1608/02/25 Rx alendronate 70 mg tablet 70 mg PO WEEKLY #12 tabs 08/02/25 Rx clopidogrel 75 mg tablet 75 mg PO DAILY #90 tabs 06/2408/02/25 Rx atorvastatin 40 mg tablet 40 mg PO QHS #90 tabs 08/02/25 Rx aspirin 81 mg capsule 81 mg PO DAILY 08/02/2507/24 History calcium 600 mg capsule 600 mg PO DAILY 08/02/2506/17 History mirabegron 50 mg tablet,extended 25 mg PO DAILY 08/02/25 History release 24 hr (Myrbetriq) Allergies Allergy/AdvReac Type Severity Reaction Status Date / Time succinylcholine Allergy Severe HARD TO Verified 08/01/25 14:45 WAKE UP allopurinol Allergy Unknown Unknown Verified 08/01/25 14:45 celecoxib Allergy Unknown Not Verified 08/01/25 14:45 Entered,Unknown doxycycline Allergy Unknown Not Verified 08/01/25 14:45 Entered,Unknown erythromycin base Allergy Unknown MYCINS Verified 08/01/25 14:45 levofloxacin Allergy Unknown Rash,Unknow Verified 08/01/25 14:45 n Penicillins Allergy Unknown Not Verified 08/02/25 01:08 Entered,Unknown Sulfa (Sulfonamide Allergy Unknown Not Verified 08/02/25 01:08 Antibiotics) Entered,Unknown Vital Signs Vital Signs - 24 hr 08/01/25 14:45 08/01/25 18:23 08/01/25 19:09 Temperature 98.0 F Pulse Rate 60 68 75 Respiratory Rate 14 15 20 Blood Pressure 170/84 H 181/80 H 189/72 H Pulse Oximetry 100 98 99 Oxygen Delivery Room Air 08/01/25 21:53 08/01/25 22:51 08/02/25 00:23 Temperature Pulse Rate 72 68 70 Respiratory Rate 18 24 H 25 H Blood Pressure 144/79 H 152/81 H 133/85 Pulse Oximetry 98 99 99 Oxygen Delivery 08/02/25 01:24 08/02/25 06:00 Temperature 98.0 F 98.3 F Pulse Rate 67 59 L Respiratory Rate 20 20 Blood Pressure 156/74 H 138/61 Pulse Oximetry 99 95 Oxygen Delivery Exam Narrative: Gen - well appearing female in no acute respiratory distress who is nontoxic- appearing lying semi recumbent in bed HEENT - normocephalic. Atraumatic. Pupils equal round and reactive. Extraocular motions intact. Moist mucous membranes. Tongue was midline. No facial asymmetry. Neck - neck was supple. No dominant adenopathy, thyromegaly or masses. 2+ carotid upstrokes without bruits. Chest - lungs are clear to auscultation bilaterally. No wheezes or crackles. CV - heart was regular rate and rhythm. S1-S2. No murmurs gallops or rubs. Abd - abdomen was soft. Nontender. Nondistended. Positive bowel sounds. No organomegaly or masses. Ext - no clubbing, cyanosis or edema. 2+ DP pulses bilaterally. Neuro - patient is alert and oriented x4. Strength is 5/5 in both upper and lower extremities. Cranial nerves 2-12 are intact. Speech is clear. Psych - normal mood and affect. Patient is pleasant and cooperative. Skin - warm and dry. No rashes noted. Results Labs Labs: Short CBC 08/01/25 Range/Units 17:09 WBC 5.0 (4.5-10.0) K/mm3 Hgb 14.9 (12.0-15.0) g/dL Hct 45.1 (37.0-47.0) % Plt Count 167 (150-375) k/mm3 BMP 08/01/25 17:09 Sodium 141 Potassium 4.2 Chloride 108 H Carbon Dioxide 26 BUN 24 H Creatinine 1.09 H Glucose 103 Calcium 9.4 Liver Function 08/01/25 Range/Units 17:09 Total Bilirubin 0.8 (0.2-1.3) mg/dL AST 36 (14-36) U/L ALT 24 (6-35) U/L Alkaline Phosphatase 163 H (38-126) U/L Albumin 4.2 (3.5-5.1) g/dL Urine 08/01/25 Range/Units 20:29 Urine Color Yellow (Yellow) Urine Appearance Clear (Clear) Urine pH 7.0 (5.0-9.0) Ur Specific [place] > 1.045 H (1.001-1.035) Urine Protein Negative (Negative) mg/dL Urine Glucose (UA) Negative (Negative) mg/dL Quality VTE Prophylaxis VTE prophylaxis: mechanical ordered Assessment and Plan Assessment and plan (1) Nausea and vomiting: Code(s): R11.2 - Nausea with vomiting, unspecified Status: Acute Assessment and Plan: Etiology unclear, although did dine out on Thursday of this week, several hours before symptoms started, so likely some component of gastroenteritis/infectious cause * CT abdomen pelvis w con: * 1. No acute findings noted in the upper abdomen and pelvis. * 2. Hiatus hernia. * 3. 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 * 4. Multilevel degenerative disc disease of lumbar spine. * Monitor serum electrolytes, CBC, hemoglobin/hematocrit q.8 hours * Monitor for bloody bowel movements,chest pain,SOB or dizziness/lightheadedness * May consider GI consult in the morning * Pantoprazole given in ED * Zofran prn (2) Vertigo: Code(s): R42 - Dizziness and giddiness Status: Acute Assessment and Plan: * Head/neck CTA: * 1. Vertebral arteries are patent in the neck on both sides. Left vertebral artery is dominant. * 2. Mild, less than 50% diameter disease of the proximal right internal carotid artery in the neck with noncalcified plaque. Moderate, 50-69% disease with partially calcified atherosclerotic plaque at the proximal left internal carotid artery in the neck. * 3. No major obstructive lesions of intracranial arteries of [place]. Chronic small vessel ischemic change of periventricular white matter. * MRI ordered * Already on Plavix 75 mg daily and 81 mg aspirin daily - continue * Monitor CBC, CMP, magnesium, troponin, and lipid profile * Monitor blood pressure, allow for permissive hypertension. * Monitor blood glucose * PT/OT eval and treat * Neurology consulted, appreciate assistance and recommendations (3) Mixed hyperlipidemia: Code(s): E78.2 - Mixed hyperlipidemia Status: Acute Assessment and Plan: * Continue atorvastatin (4) Hypertension: Code(s): I10 - Essential (primary) hypertension Status: Acute Assessment and Plan: * Patient's blood pressure was reviewed on 08/02 * Blood pressure remains well controlled * Will continue current medications (5) History of TIA (transient ischemic attack) and stroke: Code(s): Z86.73 - Personal history of transient ischemic attack (TIA), and cerebral infarction without residual deficits Status: Acute Assessment and Plan: * Continue dual anti-platelet with Plavix and aspirin (6) Chronic kidney disease, stage 3b: Code(s): N18.32 - Chronic kidney disease, stage 3b Status: Acute Assessment and Plan: * Creatinine: 1.09, GFR: 47, BUN: 24 * IV Fluids: NS @ 100ml/hr * Trend renal function * Trend electrolytes, correct as needed (7) Overactive bladder: Code(s): N32.81 - Overactive bladder Status: Acute Assessment and Plan: * Continue Mirabegron
--- NOTE | 2025-08-02 10:35 | WPDNEURCNPN ---
Assessment and Plan Assessment and plan (1) Minimal cognitive impairment: Code(s): G31.84 - Mild cognitive impairment of uncertain or unknown etiology Status: Acute (2) Nausea and vomiting: Code(s): R11.2 - Nausea with vomiting, unspecified Status: Acute Plan 1. 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 Consult date: 08/02/25 HPI: Sandra Stein is a 89 year old female admitted to the hospital through the emergency room for the complaints of nausea and vomiting and not feeling well of [id number] duration along with dizziness and diffuse abdominal pain in addition to the history of taking only Tylenol on p.r.n. basis and being allergic to multiple medications as outlined. Patient does have ongoing history of 1. Mild cognitive impairment 2. Polyarthralgia 3.. Placement of implantable loop recorder for which she is being followed by the feeder operator in addition to the history of paroxysmal supraventricular tachycardia 4. Gout 5. History of TIA . Patient is a never a smoker, currently owns a month alcohol intake, initial exam in the emergency room grossly nonfocal, normal vital signs is blood pressure 170/84, normal CBC, normal BMP, normal UA and normal Master scan, head and neck CTA less than 50% diameter disease of the proximal right internal carotid artery in the neck and moderate 50 to 69% disease with partial calcification at the proximal left internal carotid artery in the neck. Abdomen and pelvic CT scan with hiatus hernia and significant calcific atherosclerotic changes of proximal superior mesenteric artery. Home medications included aspirin 81mg daily, atorvastatin 40mg HS, clopidogrel 75mg daily, losartan 25mg daily, Review of Systems Review of Systems: All systems reviewed & are unremarkable except as noted in HPI and below PMFSH Past Medical History Medical History MCI (mild cognitive impairment) Paresthesia of right upper limb Vitamin D3 deficiency Osteopenia History of TIA (transient ischemic attack) and stroke History of cerebrovascular accident Loss of right hand dexterity Class 1 obesity with body mass index (BMI) of 31.0 to 31.9 in adult Degenerative disc disease Anemia Cough Polyarthralgia Status post placement of implantable loop recorder Follows with Dr Basurto q 6 months History of PSVT (paroxysmal supraventricular tachycardia) Overactive bladder Personal history of transient ischemic attack (TIA), and cerebral infarction without residual deficits History of esophageal dilatation Gout Shingles TIA (transient ischemic attack) (~05/2023) GERD without esophagitis History of DVT (deep vein thrombosis) Hypertension, essential, benign Lesion of hard palate Mixed hyperlipidemia History of unsteady gait Surgical History Surgical History H/O dilation and curettage S/P rotator cuff repair Hx of total knee arthroplasty Left History of cataract extraction Family History Family History Father Family history of coronary artery disease Hypertension Mother Family history of coronary artery disease Hypertension Sibling Dementia Daughter Breast cancer bilateral mastectomy Social History Social History Social History: The patient lives with her daughter. 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 Her son Abel is a durable power collections attorney for healthcare. And she desires to be a full code. She denies any alcohol, marijuana, tobacco Nor illicit drugs. Smoking status: Never smoker Second hand tobacco smoke exposure: No Alcohol intake: current Alcohol use details: once a month Substance use: never Other substance usage details: Rarely Lack of Transportation: No Lack of Food: Never True Current Housing: I Have Housing Concerned About Future Housing: No Difficulty Paying Gas/Electric Bills: No Difficulty Paying for Meds: No Currently Unemployed: No Education: Don't Know Difficulty w/ Childcare or Family Care: No Living arrangements: with family Gender identity (if verbalized by the patient): Female Spiritual care concerns: No Meds Home Medications and Allergies Home Medications ?Medication ?Instructions ?Recorded ?Confirmed ?Type acetaminophen 650 mg 650 mg PO Q8H PRN Pain, Mild 05/06/20 08/02/25 History tablet,extended release (Tylenol Arthritis Pain) losartan 25 mg tablet 25 mg PO DAILY #90 tabs 03/27/25 08/02/25 Rx alendronate 70 mg tablet 70 mg PO WEEKLY #12 tabs 04/14/25 08/02/25 Rx clopidogrel 75 mg tablet 75 mg PO DAILY #90 tabs 07/05/25 08/02/25 Rx atorvastatin 40 mg tablet 40 mg PO QHS #90 tabs 07/28/25 08/02/25 Rx aspirin 81 mg capsule 81 mg PO DAILY 08/02/25 08/02/25 History calcium 600 mg capsule 600 mg PO DAILY 08/02/25 08/02/25 History mirabegron 50 mg tablet,extended 25 mg PO DAILY 08/02/25 08/02/25 History release 24 hr (Myrbetriq) Allergies Allergy/AdvReac Type Severity Reaction Status Date / Time succinylcholine Allergy Severe HARD TO Verified 08/01/25 14:45 WAKE UP allopurinol Allergy Unknown Unknown Verified 08/01/25 14:45 celecoxib Allergy Unknown Not Verified 08/01/25 14:45 Entered,Unknown doxycycline Allergy Unknown Not Verified 08/01/25 14:45 Entered,Unknown erythromycin base Allergy Unknown MYCINS Verified 08/01/25 14:45 levofloxacin Allergy Unknown Rash,Unknow Verified 08/01/25 14:45 n Penicillins Allergy Unknown Not Verified 08/02/25 01:08 Entered,Unknown Sulfa (Sulfonamide Allergy Unknown Not Verified 08/02/25 01:08 Antibiotics) Entered,Unknown Vital Signs Vital Signs - 24 hr 08/01/25 14:45 08/01/25 18:23 08/01/25 19:09 Temperature 36.7 C Pulse Rate 60 68 75 Respiratory Rate 14 15 20 Blood Pressure 170/84 H 181/80 H 189/72 H Pulse Oximetry 100 98 99 Oxygen Delivery Room Air 08/01/25 21:53 08/01/25 22:51 08/02/25 00:23 Temperature Pulse Rate 72 68 70 Respiratory Rate 18 24 H 25 H Blood Pressure 144/79 H 152/81 H 133/85 Pulse Oximetry 98 99 99 Oxygen Delivery 08/02/25 01:24 08/02/25 06:00 Temperature 36.7 C 36.8 C Pulse Rate 67 59 L Respiratory Rate 20 20 Blood Pressure 156/74 H 138/61 Pulse Oximetry 99 95 Oxygen Delivery Exam Narrative: Exam today reveals her to be awake alert cooperative in no obvious acute distress able to follow the verbal instruction but unable to recall recent remote incidence, his speech not dysphasic not dysarthric not dysphonic, head normocephalic with no cranial bruits, ear nose throat examination normal, neck supple with no cervical bruit no thyromegaly no lymphadenopathy, heart regular, lungs clear to auscultation, abdomen is soft nontender, neurologically she is awake does not follow the verbal commands appropriately but interested in knowing exactly what happened his speech is not dysarthric, pupils round regular feels the vision full to the threat stimuli in all 4 quadrants, extraocular movements full with no nystagmus, facial sensation intact, face symmetrical, tongue in the oral cavity with no fasciculation, motor examination revealed her to have ability to move both upper and lower extremities with no abnormal movements no cogwheel or lead-pipe rigidity, deep tendon reflexes are sluggish, plantar responses are downgoing, Results Labs 08/01/25 17:09 08/01/25 17:09 Labs: Short CBC 08/01/25 Range/Units 17:09 WBC 5.0 (4.5-10.0) K/mm3 Hgb 14.9 (12.0-15.0) g/dL Hct 45.1 (37.0-47.0) % Plt Count 167 (150-375) k/mm3 BMP 08/01/25 17:09 Sodium 141 Potassium 4.2 Chloride 108 H Carbon Dioxide 26 BUN 24 H Creatinine 1.09 H Glucose 103 Calcium 9.4 Liver Function 08/01/25 Range/Units 17:09 Total Bilirubin 0.8 (0.2-1.3) mg/dL AST 36 (14-36) U/L ALT 24 (6-35) U/L Alkaline Phosphatase 163 H (38-126) U/L Albumin 4.2 (3.5-5.1) g/dL Urine 08/01/25 Range/Units 20:29 Urine Color Yellow (Yellow) Urine Appearance Clear (Clear) Urine pH 7.0 (5.0-9.0) Ur Specific [place] > 1.045 H (1.001-1.035) Urine Protein Negative (Negative) mg/dL Urine Glucose (UA) Negative (Negative) mg/dL
--- NOTE | 2025-08-02 14:15 | PC.NURSE ---
Call made to son Gianfranco, and daughter Renee. Neither able to answer admission or MRI screening questions.
[2025-08-02 15:46] LABS: Hematocrit 41.2 % (37.0-47.0); Hemoglobin 13.2 g/dL (12.0-15.0); Immature Granulocyte Percent A 0.2 % (0-0.5); Lymphocytes Absolute Auto 1.45 K/mm3 (0.9-3.2); Mean Corpuscular HGB Conc 32.0 g/dl (32-36); Mean Corpuscular Hemoglobin 33.5 pg (26-34); Mean Corpuscular Volume 104.6 fl (80-100); Nucleated Red Blood Cells Absolute Auto 0.020 K/mm3 (0.0-0.012); Nucleated Red Blood Cells Perc 0.4 % (0.0-0.2); Platelet Count Result 184 k/mm3 (150-375); Red Blood Count 3.94 M/mm3 (4.2-5.4); White Blood Count 5.3 K/mm3 (4.5-10.0)
[2025-08-02 16:03] LABS: Alanine Aminotransferase 20 U/L (6-35); Albumin Level 3.3 g/dL (3.5-5.1); Alkaline Phosphatase 132 U/L (38-126); Anion Gap 5 mmol/L (4-12); Aspartate Amino Transferase 36 U/L (14-36); Bilirubin,Total 0.6 mg/dL (0.2-1.3); Blood Urea Nitrogen 23 mg/dL (7-17); Calcium 9.0 mg/dL (8.4-10.2); Carbon Dioxide 25 mmol/L (22-30); Chloride 108 mmol/L (98-107); Estimated Glomerular Filt Rate 42; Glucose 97 mg/dL (65-110); Potassium 4.4 mmol/L (3.4-5.0); Sodium 138 mmol/L (137-145); Total Protein 6.2 g/dL (6.3-8.2)
[2025-08-02] MEDS: SODIUM CHLORIDE 0.9% IV 1,000 ML 100 ML IV CONT (17:58)
[2025-08-02] MEDS: ATORVASTATIN 40 MG TABLET PO (21:09)
[2025-08-03] VITALS: PULSE 65
[2025-08-03 05:26] VITALS: BP 170/62; PULSE 57; RESP 16; TEMP 35.9; O2SAT 99
[2025-08-03 06:42] LABS: Hematocrit 41.9 % (37.0-47.0); Hemoglobin 13.8 g/dL (12.0-15.0); Immature Granulocyte Percent A 0.2 % (0-0.5); Immature Platelet Fraction Pct 4.9 % (0.9-11.2); Lymphocytes Absolute Auto 1.66 K/mm3 (0.9-3.2); Mean Corpuscular HGB Conc 32.9 g/dl (32-36); Mean Corpuscular Hemoglobin 32.7 pg (26-34); Mean Corpuscular Volume 99.3 fl (80-100); Nucleated Red Blood Cells Absolute Auto 0.000 K/mm3 (0.0-0.012); Nucleated Red Blood Cells Perc 0.0 % (0.0-0.2); Platelet Count Result 136 k/mm3 (150-375); Red Blood Count 4.22 M/mm3 (4.2-5.4); White Blood Count 5.4 K/mm3 (4.5-10.0)
[2025-08-03 07:03] LABS: Alanine Aminotransferase 19 U/L (6-35); Albumin Level 3.4 g/dL (3.5-5.1); Alkaline Phosphatase 136 U/L (38-126); Anion Gap 3 mmol/L (4-12); Aspartate Amino Transferase 37 U/L (14-36); Bilirubin,Total 0.6 mg/dL (0.2-1.3); Blood Urea Nitrogen 22 mg/dL (7-17); Calcium 8.9 mg/dL (8.4-10.2); Carbon Dioxide 25 mmol/L (22-30); Chloride 111 mmol/L (98-107); Estimated Glomerular Filt Rate 39; Glucose 89 mg/dL (65-110); Potassium 4.0 mmol/L (3.4-5.0); Sodium 139 mmol/L (137-145); Total Protein 6.6 g/dL (6.3-8.2)
[2025-08-03 08:00] VITALS: PULSE 54
[2025-08-03] MEDS: CLOPIDOGREL BISULFATE 75 MG TABLET PO (09:57)
[2025-08-03] MEDS: ASPIRIN 81 MG CHEWABLE TABLET PO (09:57)
[2025-08-03] MEDS: MIRABEGRON 25 MG ER TABLET PO (09:57)
[2025-08-03] MEDS: LOSARTAN POTASSIUM 25 MG TABLET PO (09:57)
--- NOTE | 2025-08-03 10:58 | P.PNIM_ITS ---
Assessment and Plan Assessment and Plan (1) Nausea and vomiting: Code(s): R11.2 - Nausea with vomiting, unspecified Status: Acute Assessment and Plan: Etiology unclear, although did dine out on Thursday of this week, several hours before symptoms started, so likely some component of gastroenteritis/infectious cause * CT abdomen pelvis w con: * 1. No acute findings noted in the upper abdomen and pelvis. * 2. Hiatus hernia. * 3. 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 * 4. Multilevel degenerative disc disease of lumbar spine. * Monitor serum electrolytes, CBC, hemoglobin/hematocrit q.8 hours * Monitor for bloody bowel movements,chest pain,SOB or dizziness/lightheadedness * May consider GI consult in the morning * Pantoprazole given in ED * Zofran prn (2) Vertigo: Code(s): R42 - Dizziness and giddiness Status: Acute Assessment and Plan: * Head/neck CTA: * 1. Vertebral arteries are patent in the neck on both sides. Left vertebral artery is dominant. * 2. Mild, less than 50% diameter disease of the proximal right internal carotid artery in the neck with noncalcified plaque. Moderate, 50-69% disease with partially calcified atherosclerotic plaque at the proximal left internal carotid artery in the neck. * 3. No major obstructive lesions of intracranial arteries of [place]. Chronic small vessel ischemic change of periventricular white matter. * MRI: No evidence of acute infarct or bleed. Chronic small vessel ischemic change of periventricular white matter. Significantly Limited study due to motion artifacts especially on the postcontrast study. * Already on Plavix 75 mg daily and 81 mg aspirin daily - continue * Monitor CBC, CMP, magnesium, troponin, and lipid profile * Monitor blood pressure, allow for permissive hypertension. * Monitor blood glucose * PT/OT eval and treat * Neurology consulted, appreciate assistance and recommendations (3) Mixed hyperlipidemia: Code(s): E78.2 - Mixed hyperlipidemia Status: Acute Assessment and Plan: * Continue atorvastatin (4) Hypertension: Code(s): I10 - Essential (primary) hypertension Status: Acute Assessment and Plan: * Patient's blood pressure was reviewed on 08/02 * Blood pressure remains well controlled * Will continue current medications (5) History of TIA (transient ischemic attack) and stroke: Code(s): Z86.73 - Personal history of transient ischemic attack (TIA), and cerebral infarction without residual deficits Status: Acute Assessment and Plan: * Continue dual anti-platelet with Plavix and aspirin (6) Chronic kidney disease, stage 3b: Code(s): N18.32 - Chronic kidney disease, stage 3b Status: Acute Assessment and Plan: * Creatinine: 1.09, GFR: 47, BUN: 24 * IV Fluids: NS @ 100ml/hr * Trend renal function * Trend electrolytes, correct as needed (7) Overactive bladder: Code(s): N32.81 - Overactive bladder Status: Acute Assessment and Plan: * Continue Mirabegron Subjective Date/time seen: 08/03/25 10:58 Interval history: Sandra Stein is an 89-year-old female with wit arreola extensive past medical Hx who presents to the hospital with nausea/vomiting and dizziness that started in the evening of 07/31 and has progressively gotten worse over the 24 hours prior to admission. 08/03/2025 Patient sitting comfortably in bed at time of exam. Denies any nausea/emesis. Brain MRI yesterday negative for acute infarct or bleeding. PT/OT evals recommending placement to SNF. Will work with CC regarding placement. Blood work and vitals remain stable, no leukocytosis. No other acute overnight events. Review of Systems Review of Systems: All systems reviewed & are unremarkable except as noted in HPI and below Exam Narrative: Gen - well appearing female in no acute respiratory distress who is nontoxic- appearing lying semi recumbent in bed HEENT - normocephalic. Atraumatic. Pupils equal round and reactive. Extraocular motions intact. Moist mucous membranes. Tongue was midline. No facial asymmetry. Neck - neck was supple. No dominant adenopathy, thyromegaly or masses. 2+ carotid upstrokes without bruits. Chest - lungs are clear to auscultation bilaterally. No wheezes or crackles. CV - heart was regular rate and rhythm. S1-S2. No murmurs gallops or rubs. Abd - abdomen was soft. Nontender. Nondistended. Positive bowel sounds. No organomegaly or masses. Ext - no clubbing, cyanosis or edema. 2+ DP pulses bilaterally. Neuro - patient is alert and oriented x4. Strength is 5/5 in both upper and lower extremities. Cranial nerves 2-12 are intact. Speech is clear. Psych - normal mood and affect. Patient is pleasant and cooperative. Skin - warm and dry. No rashes noted. Objective Data Vital Signs Vital Signs: Vital Signs - 24 hr 08/02/25 12:00 08/02/25 12:00 08/02/25 16:00 Temperature Pulse Rate 70 76 70 Respiratory Rate Blood Pressure Pulse Oximetry Oxygen Delivery 08/02/25 19:00 08/02/25 19:25 08/02/25 20:00 Temperature 97.3 F L Pulse Rate 71 67 Respiratory Rate 16 Blood Pressure 140/66 Pulse Oximetry 100 Oxygen Delivery 08/03/25 00:00 08/03/25 05:26 08/03/25 08:27 Temperature 96.6 F L Pulse Rate 65 57 L Respiratory Rate 16 Blood Pressure 170/62 H Pulse Oximetry 99 Oxygen Delivery Room Air Intake/Output Intake/Output: Intake & Output 07/31/25 08/01/25 08/02/25 08/03/25 23:59 23:59 23:59 23:59 Intake Total 1440 480 Output Total 200 600 Balance -200 1440 -120 Meds/Results Medications: Active Medications Generic Name Dose Route Start Last Admin Trade Name Freq PRN Reason Stop Dose Admin Acetaminophen 650 mg 08/02/25 16:29 Acetaminophen 325 Mg Tablet PO Q8H PRN Pain, Mild Alendronate Sodium 70 mg 08/08/25 09:00 Alendronate Sodium 70 Mg Tablet PO WEEKLY CAMMIE Aspirin 81 mg 08/03/25 08:00 08/03/25 09:57 Aspirin 81 Mg Chewable Tablet PO 81 mg DAILY@0800 CAMMIE Administration Atorvastatin Calcium 40 mg 08/02/25 21:00 08/02/25 21:09 Atorvastatin 40 Mg Tablet PO 40 mg QHS CAMMIE Administration Calcium Carbonate 500 mg 08/03/25 09:00 08/03/25 10:07 Calcium Carbonate (Oscal) 500 Mg Tablet PO Not Given QAM CAMMIE Clopidogrel Bisulfate 75 mg 08/03/25 09:00 08/03/25 09:57 Clopidogrel Bisulfate 75 Mg Tablet PO 75 mg DAILY CAMMIE Administration Sodium Chloride 1,000 mls @ 100 mls/hr 08/02/25 16:35 08/03/25 10:24 Normal Saline Iv IV CONT Not Given .Q10H CAMMIE Losartan Potassium 25 mg 08/03/25 09:00 08/03/25 09:57 Losartan Potassium 25 Mg Tablet PO 25 mg DAILY CAMMIE Administration Mirabegron 25 mg 08/03/25 09:00 08/03/25 09:57 Mirabegron 25 Mg Er Tablet PO 25 mg DAILY CAMMIE Administration Ondansetron HCl 4 mg 08/02/25 16:40 Ondansetron Hcl Odt 4 Mg Tablet PO Q6H PRN Nausea And Vomiting Radiology Results: ITS Impressions Abdomen/Pelvis CT 08/01/25 18:01 IMPRESSION: 1. No acute findings noted in the upper abdomen and pelvis. 2. Hiatus hernia. 3. 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 4. Multilevel degenerative disc disease of lumbar spine. Head/Neck CTA 08/01/25 20:12 IMPRESSION: 1. Vertebral arteries are patent in the neck on both sides. Left vertebral artery is dominant. 2. Mild, less than 50% diameter disease of the proximal right internal carotid artery in the neck with noncalcified plaque. Moderate, 50-69% disease with partially calcified atherosclerotic plaque at the proximal left internal carotid artery in the neck. 3. No major obstructive lesions of intracranial arteries of [place]. Chronic small vessel ischemic change of periventricular white matter. Chest X-Ray 08/02/25 14:20 IMPRESSION: 1. No focal acute process ADDENDUM: 08/02/25 1442 Patient cleared for MRI. Brain MRI 08/02/25 17:34 IMPRESSION: 1. Significantly Limited study due to motion artifacts especially on the postcontrast study. 2. No evidence of acute infarct or bleed. Chronic small vessel ischemic change of periventricular white matter. Labs Labs: Laboratory Results - last 24 hr 08/02/25 08/03/25 15:37 06:31 WBC 5.3 5.4 RBC 3.94 L 4.22 Hgb 13.2 13.8 Hct 41.2 41.9 MCV 104.6 H D 99.3 D MCH 33.5 32.7 MCHC 32.0 32.9 RDW 14.0 13.7 Plt Count 184 136 L MPV 12.1 H 11.2 H Immature Gran % (Auto) 0.2 0.2 Neut % (Auto) 61.8 57.2 Lymph % (Auto) 27.4 30.7 Caroline % (Auto) 7.0 7.6 Eos % (Auto) 3.0 3.7 Baso % (Auto) 0.6 0.6 Lymph # (Auto) 1.45 1.66 Caroline # (Auto) 0.4 0.4 Eos # (Auto) 0.2 0.2 Baso # (Auto) 0.0 0.0 Abs Immat Gran (auto) 0.01 0.01 Absolute Neuts (auto) 3.3 3.1 Absolute Nucleated RBC 0.020 H 0.000 Nucleated RBC % 0.4 H 0.0 % Immature Plt Fraction 4.9 Sodium 138 139 Potassium 4.4 4.0 Chloride 108 H 111 H Carbon Dioxide 25 25 Anion Gap 5 3 L BUN 23 H 22 H Creatinine 1.22 H 1.30 H Estim Creat Clear Calc Not Reportable Not Reportable Estimated GFR 42 L 39 L Glucose 97 89 Calcium 9.0 8.9 Total Bilirubin 0.6 0.6 AST 36 37 H ALT 20 19 Alkaline Phosphatase 132 H 136 H Total Protein 6.2 L 6.6 Albumin 3.3 L 3.4 L Quality VTE Prophylaxis VTE prophylaxis: mechanical ordered
[2025-08-03 12:00] VITALS: PULSE 71
[2025-08-03 14:00] VITALS: BP 129/54; PULSE 70; RESP 18; TEMP 36.6; O2SAT 100
--- NOTE | 2025-08-03 14:44 | P.DS_ITS ---
DS: Admitting Diagnosis Discharge Date 08/03/2025 Admitting Diagnosis Nausea/vomiting DS: Discharge Diagnosis Discharge Diagnosis (1) Nausea and vomiting: Code(s): R11.2 - Nausea with vomiting, unspecified Status: Acute (2) Vertigo: Code(s): R42 - Dizziness and giddiness Status: Acute (3) Mixed hyperlipidemia: Code(s): E78.2 - Mixed hyperlipidemia Status: Acute (4) Hypertension: Code(s): I10 - Essential (primary) hypertension Status: Acute (5) History of TIA (transient ischemic attack) and stroke: Code(s): Z86.73 - Personal history of transient ischemic attack (TIA), and cerebral infarction without residual deficits Status: Acute (6) Chronic kidney disease, stage 3b: Code(s): N18.32 - Chronic kidney disease, stage 3b Status: Acute (7) Overactive bladder: Code(s): N32.81 - Overactive bladder Status: Acute DS: Summary Hospital Course Reason for hospitalization: Nausea/vomiting/weakness Hospital Course: 89-year-old female with a complex medical history including hypertension, dyslipidemia, paroxysmal SVT (status post implantable loop recorder), multiple prior strokes and TIAs, CKD stage 3b, GERD, gout, chronic low back pain due to DDD, overactive bladder, osteopenia, history of DVT, osteoarthritis, and unsteady gait. She presented with acute onset nausea, vomiting, and dizziness that began several hours after dining out, with symptoms worsening over the 24 hours prior to admission. Initial evaluation in the ED revealed stable vital signs, with intermittent hypertension, and unremarkable physical exam except for mild cognitive impairment. Laboratory studies were notable for mild renal insufficiency (creatinine 1.09?1.3, GFR 39?47), mild anemia, and stable electrolytes. Imaging included a CT abdomen/pelvis (no acute findings, hiatus hernia, significant atherosclerosis of the SMA), head/neck CTA (mild right and moderate left carotid stenosis, chronic small vessel ischemic changes), and brain MRI (no acute infarct or hemorrhage, chronic small vessel disease, limited by motion artifact). She was managed with IV fluids, antiemetics (ondansetron), and pantoprazole, with close monitoring of labs and hemodynamics. Her home medications, including dual antiplatelet therapy (aspirin and clopidogrel), atorvastatin, losartan, and mirabegron, were continued. Neurology was consulted given her history and presentation; no acute neurologic event was identified. Her symptoms improved with supportive care, and she remained hemodynamically stable with no further emesis or acute events. She is otherwise hemodynamically stable, symptoms likely attributed to gastritis/gastroenteritis. PT/OT evaluations recommended senior care facility placement for ongoing rehabilitation and safety due to her baseline cognitive impairment and unsteady gait. Discharge planning was initiated in coordination with case management. Throughout her stay, she remained afebrile, with no leukocytosis or evidence of infection, and her renal function and electrolytes were trended and remained stable. She was ultimately cleared for discharge to a SNF for continued care and rehabilitation, however the patient and daughter would prefer to be discharged home with home health therapy - this has been set up with care coordination and the patient can be discharged at this time. Status at Discharge Functional status at discharge: uses cane/walker Overall status at discharge: patient is back to baseline Time Spent with Patient Time attestation: Total time spent providing and/or coordinating discharge services: 35 Exam Narrative: Gen - well appearing female in no acute respiratory distress who is nontoxic- appearing lying semi recumbent in bed HEENT - normocephalic. Atraumatic. Pupils equal round and reactive. Extraocular motions intact. Moist mucous membranes. Tongue was midline. No facial asymmetry. Neck - neck was supple. No dominant adenopathy, thyromegaly or masses. 2+ carotid upstrokes without bruits. Chest - lungs are clear to auscultation bilaterally. No wheezes or crackles. CV - heart was regular rate and rhythm. S1-S2. No murmurs gallops or rubs. Abd - abdomen was soft. Nontender. Nondistended. Positive bowel sounds. No organomegaly or masses. Ext - no clubbing, cyanosis or edema. 2+ DP pulses bilaterally. Neuro - patient is alert and oriented x4. Strength is 5/5 in both upper and lower extremities. Cranial nerves 2-12 are intact. Speech is clear. Psych - normal mood and affect. Patient is pleasant and cooperative. Skin - warm and dry. No rashes noted. DS: Data Data Completed and Pending Labs on day of discharge: Labs from last 24 hours 08/03/25 08/02/25 06:31 15:37 WBC 5.4 5.3 RBC 4.22 3.94 L Hgb 13.8 13.2 Hct 41.9 41.2 MCV 99.3 D 104.6 H D MCH 32.7 33.5 MCHC 32.9 32.0 RDW 13.7 14.0 Plt Count 136 L 184 MPV 11.2 H 12.1 H Immature Gran % (Auto) 0.2 0.2 Neut % (Auto) 57.2 61.8 Lymph % (Auto) 30.7 27.4 [place] % (Auto) 7.6 7.0 Eos % (Auto) 3.7 3.0 Baso % (Auto) 0.6 0.6 Lymph # (Auto) 1.66 1.45 [place] # (Auto) 0.4 0.4 Eos # (Auto) 0.2 0.2 Baso # (Auto) 0.0 0.0 Abs Immat Gran (auto) 0.01 0.01 Absolute Neuts (auto) 3.1 3.3 Absolute Nucleated RBC 0.000 0.020 H Nucleated RBC % 0.0 0.4 H % Immature Plt Fraction 4.9 Sodium 139 138 Potassium 4.0 4.4 Chloride 111 H 108 H Carbon Dioxide 25 25 Anion Gap 3 L 5 BUN 22 H 23 H Creatinine 1.30 H 1.22 H Estim Creat Clear Calc Not Reportable Not Reportable Estimated GFR 39 L 42 L Glucose 89 97 Calcium 8.9 9.0 Total Bilirubin 0.6 0.6 AST 37 H 36 ALT 19 20 Alkaline Phosphatase 136 H 132 H Total Protein 6.6 6.2 L Albumin 3.4 L 3.3 L Discharge Plan Discharge Attending physician on discharge: Kirk Davison Consulting providers: Teodoro Mcbride; Stone Mancini Discharging Clinician: Stone Mancini Anticipated Discharge Date/Time: 08/03/25 14:42 Patient Disposition: Home with Home Health Service Activity: as tolerated Diet: regular Discharge Instructions: Per Care Coordination. Patient to have [facility] [place] for RN/PT/OT eval and treat [phone]. RN please fax discharge instructions to [phone] Discharge disposition: Home with home health therapy Take medications as prescribed Monitor blood pressures Take caution while standing, rising, or moving Change positions slowly taking a break between each position change If you standing feel dizzy sit back down and take a break Encouraged to continue with yearly vaccinations Return to the emergency department if you develop sudden shortness of breath, chest pain, nausea, vomiting, upset stomach or intractable diarrhea Return to the emergency department if you develop fever greater than 101.5 Follow-up with the primary care physician within 1-2 weeks Thank you for [facility] for your healthcare needs Patient Instructions: Antibiotic Form Patient Language: Italian Stand Alone Forms: General Discharge Information Follow-up/Referrals: Cathryn Garcia MD [Primary Care Provider, Family Practice] Discharge Medications: Continued acetaminophen [Tylenol Arthritis Pain] 650 mg Tablet Extended Release 650 mg PO Q8H PRN (Reason: Pain, Mild) aspirin 81 mg capsule 81 mg PO DAILY mirabegron [Myrbetriq] 50 mg tablet extended release 24 hr 25 mg PO DAILY losartan 25 mg tablet 25 mg PO DAILY Qty: 90 1RF alendronate 70 mg tablet 70 mg PO WEEKLY Qty: 12 3RF clopidogrel 75 mg tablet 75 mg PO DAILY Qty: 90 1RF atorvastatin 40 mg tablet 40 mg PO QHS Qty: 90 1RF Discontinued calcium 600 mg capsule 600 mg PO DAILY Date of admission: 08/01/25 21:53 Primary Care Provider: Cathryn Garcia Admitting Provider: Christen Georges Attending physician on admission: Christen Georges Condition: Stable Quality VTE Prophylaxis VTE prophylaxis: mechanical ordered
[2025-08-03 16:00] VITALS: PULSE 64
== END 2025-08-03 17:05 | disposition home health service (06) ==
LOC: ANHED 22:11 → ANH3MEDSUR 08-02 06:57
PROVIDERS: Physician Assistant; Admitting Provider Internal Medicine; Emergency Provider Emergency Medicine; PCP Family Medicine; Visit Provider Internal Medicine
DX: R11.2 Nausea with vomiting, unspecified (principal); R42 Dizziness and giddiness; E55.9 Vitamin D deficiency, unspecified; G31.84 Mild cognitive impairment of uncertain or unknown etiology; I47.10 Supraventricular tachycardia, unspecified; E78.2 Mixed hyperlipidemia; M10.9 Gout, unspecified; I12.9 Hypertensive chronic kidney disease with stage 1 through stage 4 chronic kidney disease, or unspecified chronic kidney disease; N18.32 Chronic kidney disease, stage 3b; N32.81 Overactive bladder; G89.29 Other chronic pain; M54.50 Low back pain, unspecified; M51.361 Other intervertebral disc degeneration, lumbar region with lower extremity pain only; K21.9 Gastro-esophageal reflux disease without esophagitis; M85.80 Other specified disorders of bone density and structure, unspecified site; Z79.82 Long term (current) use of aspirin; Z79.02 Long term (current) use of antithrombotics/antiplatelets; Z96.652 Presence of left artificial knee joint; Z95.818 Presence of other cardiac implants and grafts; Z86.19 Personal history of other infectious and parasitic diseases; Z86.73 Personal history of transient ischemic attack (TIA), and cerebral infarction without residual deficits; Z86.718 Personal history of other venous thrombosis and embolism; Z87.39 Personal history of other diseases of the musculoskeletal system and connective tissue; Z82.49 Family history of ischemic heart disease and other diseases of the circulatory system
CPT/HCPCS: 36415; 70496; 70498; 70553; 71046; 74177; 80053; 81003; 83605; 83690; 85025; 85055; 96361; 96374; 96375; 97162; 97165; 99285; A9270; A9577; G0378; J2405; J2470; J3360; J7030; J7120; Q9967

== ENCOUNTER 2025-08-07 20:19 | Observation (INO) | payer OTHER, SELFPAY ==
--- NOTE | ~2025-08-07 | CT_ITS ---
CT brain wo con HISTORY:ams COMPARISON: None. TECHNIQUE: Axial images were obtained of the head without intravenous contrast. FINDINGS: No acute intracranial hemorrhage, mass effect or midline shift. No extra-axial fluid collections. There is generalized atrophy and chronic white matter microangiopathic changeswithin the periventricular white matter.The calvarium is intact. There is a polyp or mucous retention cysts in the right maxillary sinus. Remaining visualized paranasal sinuses and mastoid air cells are clear. IMPRESSION: No acute intracranial hemorrhage or extra axial fluid collections. All CT scans at this facility are performed using low dose modulation techniques as appropriate to perform exam including the following: automated exposure control; use of iterative reconstruction technique; adjustment of the mA and/or kV according to patient size (this includes techniques or standardized protocols for targeted exams where dose is matched to indication/reason for exam). Reviewed, dictated and finalized at location S. UNICATIONS SPECIALIST IMPRESSION: No acute intracranial hemorrhage or extra axial fluid collections. All CT scans at this facility are performed using low dose modulation techniqu es as appropriate to perform exam including the following: automated exposure c ontrol; use of iterative reconstruction technique; adjustment of the mA and/or kV according to patient size (this includes techniques or standardized protocol s for targeted exams where dose is matched to indication/reason for exam).
--- NOTE | ~2025-08-07 | XR_ITS ---
EXAMINATION: XR foot LT min 3V, 08/11/2025 15:21 HOME THEATER EXPERIENCE EXPERT HISTORY: pain COMPARISON: No comparisons available. Findings: No acute fracture or malalignment. No significant degenerative changes. Soft tissues unremarkable. Impression: No acute fracture or malalignment. Reviewed, dictated and finalized at location P. THEATER EXPERIENCE EXPERT Impression: No acute fracture or malalignment.
[2025-08-07 20:23] VITALS: BP 130/79; PULSE 72; RESP 13; TEMP 36.4; O2SAT 99
[2025-08-07 20:32] VITALS: BP 130/79; PULSE 71; RESP 19; O2SAT 100
--- NOTE | 2025-08-07 20:35 | ECG_ITS ---
Test Date: 2025-08-07 20:37:06 Measurements Intervals [place] Rate: 72 P: 50 AR: 158 QRS: 38 QRSD: 82 T: 29 QT: 366 QTc: 402 Interpretive Statements SINUS RHYTHM BORDERLINE T WAVE ABNORMALITY- ANTERIOR LEADS BASELINE ARTIFACT- I, II, III, AVR, AVL, AVF, V1-V6 BORDERLINE ECG Compared to ECG 04/27/2025 17:11:15 No significant changes Electronically Signed On 08-08-2025 06:02:13 LAND MANAGEMENT SUPERVISOR by Ryley Cha D.O.
[2025-08-07 20:47] VITALS: BP 147/48; PULSE 74; RESP 16; O2SAT 100
[2025-08-07 21:03] VITALS: O2SAT 100
[2025-08-07 21:04] VITALS: BP 164/73; PULSE 73; RESP 19; O2SAT 100
--- OUTSIDE RECORDS SUMMARY | 2025-08-07 21:20 | XMS_ITS | Encounter Summary ---
Author Organization [facility] Address [address] [place] [id number] Phone Care Team Providers Care Physicians Assistant Name Role Phone Gume Gutierrez MD Primary Care Provider [phone] Reason for Visit * Reason Comments Med Refill Encounter Details Date Type Department Care Team (Late st Contact Info) Description 04/01/2020 Refill [facility] Nephrology and Hypertension [address] [facility], [address] [address] Santhosh Arshad MD [address] [facility], [address] [facility] [place] [address] Social History Tobacco Use Types Packs/Day Years Used Date Smoking Tobacco: Never Smokeless Tobacco: Never Alcohol Use Standard Drinks/Week Comments Yes 0 (1 standard drink = 0.6 oz pur e alcohol) rare Comments Unknown Sex and Gender Information Value Date Recorded Sex Assigned at Not on file Legal Sex Female 10:05 AM [facility] Gender Identity Not on file Sexual Orientation Not on file documented as of this encounter Plan of Treatment Not on file documented as of this encounter Visit Diagnoses Not on filedocumented in this encounter Care Teams Physicians Assistant Relationship Specialty Start Date End Date Gume Gutierrez MD [address] [place] [address] PCP - General Family Medicine 02/09/19 documented as of this encounter
--- OUTSIDE RECORDS SUMMARY | 2025-08-07 21:20 | XMS_ITS | Encounter Summary ---
Author Organization [facility] Address [address] [place] [phone] Phone Care Team Providers Care Assistant Professor Of Geography Name Role Phone Gume Gutierrez MD Primary Care Provider [phone] Reason for Visit * Reason Comments Med Refill Encounter Details Date Type Department Care Team (Late st Contact Info) Description 06/11/2020 Refill [facility] Nephrology and Hypertension [address] [facility], [address] [address] Santhosh Arshad MD [address] [facility], [address] [facility] [place] [address] Social History Tobacco Use Types Packs/Day Years [...] on filedocumented in this encounter Care Teams Assistant Professor Of Geography Relationship Specialty Start Date End Date Gume Gutierrez MD [address] [place] [address] PCP - General Family Medicine 02/09/19 documented as of this encounter
--- OUTSIDE RECORDS SUMMARY | 2025-08-07 21:20 | XMS_ITS | Clinical Summary ---
Author Organization [facility] Address [address] [place] [phone] Phone Care Team Providers Care Commercial Drone Software Developer Name Role Phone Gume Gutierrez MD Primary Care Provider [phone] Allergies Active Allergy Reactions Criticality Noted Date [...] Comments Blood Pressure 124/64 08/02/2018 12:01 AM DIRECTOR OF GIFT PLANNING Pulse 84 08/02/2018 12:01 AM DIRECTOR OF GIFT PLANNING Temperature 36.4 C (97.5 F) 02/17/2018 12:01 AM CDT Respiratory Rate - - Oxygen Saturation - - Inhaled Oxygen Concentration - - Weight 83.5 kg (184 lb) 08/02/2018 12:01 AM DIRECTOR OF GIFT PLANNING Height 152.4 cm (5') 08/02/2018 12:01 AM DIRECTOR OF GIFT PLANNING Body Mass Index 35.94 08/02/2018 12:01 AM DIRECTOR OF GIFT PLANNING Plan of Treatment Health Maintenance Due Date Last Done Comments Pneumococcal PPSV23/PCV13 65 + Years / Low and Medium Risk (1 of 2 - PCV) 1987 Influenza Vaccine (#1) 2025 Insurance [facility] [place] [address] Care Teams Commercial Drone Software Developer Relationship Specialty Start Date End Date Gume Gutierrez MD [address] [place] [address] PCP - General Family Medicine 02/09/19
--- OUTSIDE RECORDS SUMMARY | 2025-08-07 21:20 | XMS_ITS | Clinical Summary ---
Author Organization [facility] Address [address] [facility] Attn: Epic Prelude ADT LAYLADANA ROBERTOMILLICENT RODRIGES [address] Care Team Providers Care Open Winder Name Role Phone Unavailable Primary Care Provider [...]
--- NOTE | 2025-08-07 21:21 | ED.AMS ---
HPI - Altered Mental Status General Chief Complaint: Altered Mental Status Stated Complaint: Confusion/Weakness Time Seen by Provider: 08/07/25 21:13 History of Present Illness HPI narrative: 89-year-old female with history of Alzheimer's dementia with cognitive impairment, hypertension, HLD, prior CVA. Patient presents to the emergency department via EMS from home. Patient's daughter companies the patient and states that she is confused and acting and talking crazy and she has been having having agitation. Patient does have a history of Alzheimer's and seen neurology for this previously. Her daughter states she is not on any medications for Alzheimer's or any agitation symptom control. Per EMR documentation patient was admitted to the hospital this week for nausea vomiting mental status changes and had a broad workup with plans for discharge to a skilled care facility and rehab/nursing facility but family prefer to go home. I discussed this with the daughter and she states this conversation never happened and she was not aware of any nursing facility recommendations but would like to pursue that and have the patient admitted again. Patient herself is answering questions about her name but otherwise not answering any questions or following commands. Does not appear to be in any distress but agitated with the situation. denies any fall or injury and family states that she has not fallen or injured herself recently. She does have a history urinary incontinence and had trouble going to the bathroom today so family thinks it could also be urinary infection. Patient herself not complaining anything but also not answering anything appropriately. Alert oriented x1 at this time. Related Data Home Medications ?Medication ?Instructions ?Recorded ?Confirmed ?Last Taken ?Type acetaminophen 650 mg 650 mg PO Q8H PRN Pain, Mild 05/06/20 08/08/25 08/07/25 History tablet,extended release (Tylenol Arthritis Pain) aspirin 81 mg capsule 81 mg PO DAILY 08/02/25 08/08/25 08/07/25 History mirabegron 50 mg tablet,extended 25 mg PO DAILY 08/02/25 08/08/25 08/07/25 History release 24 hr (Myrbetriq) Allergies Allergy/AdvReac Type Severity Reaction Status Date / Time succinylcholine Allergy Severe HARD TO Verified 08/08/25 00:28 WAKE UP allopurinol Allergy Unknown Unknown Verified 08/08/25 00:28 celecoxib Allergy Unknown Not Verified 08/08/25 00:28 Entered,Unknown doxycycline Allergy Unknown Not Verified 08/08/25 00:28 Entered,Unknown erythromycin base Allergy Unknown MYCINS Verified 08/08/25 00:28 levofloxacin Allergy Unknown Rash,Unknow Verified 08/08/25 00:28 n Penicillins Allergy Unknown Not Verified 08/08/25 00:28 Entered,Unknown Sulfa (Sulfonamide Allergy Unknown Not Verified 08/08/25 00:28 Antibiotics) Entered,Unknown Review of Systems Review of Systems: as reviewed above in HPI All systems reviewed & are unremarkable except as noted in HPI and below [facility] Past Medical History Medical History (Updated 08/08/25 @ 05:57 by Elio Mejia MD) DVT (deep venous thrombosis) MCI (mild cognitive impairment) Paresthesia of right upper limb Vitamin D3 deficiency Osteopenia History of TIA (transient ischemic attack) and stroke History of cerebrovascular accident Loss of right hand dexterity Class 1 obesity with body mass index (BMI) of 31.0 to 31.9 in adult Degenerative disc disease Anemia Cough Polyarthralgia Status post placement of implantable loop recorder Follows with Dr Basurto q 6 months History of PSVT (paroxysmal supraventricular tachycardia) Overactive bladder Personal history of transient ischemic attack (TIA), and cerebral infarction without residual deficits History of esophageal dilatation Gout Shingles TIA (transient ischemic attack) (~05/2023) GERD without esophagitis History of DVT (deep vein thrombosis) Hypertension, essential, benign Lesion of hard palate Mixed hyperlipidemia History of unsteady gait Surgical History Surgical History H/O dilation and curettage S/P rotator cuff repair Hx of total knee arthroplasty Left History of cataract extraction Family History Family History Father Family history of coronary artery disease Hypertension Mother Family history of coronary artery disease Hypertension Sibling Dementia Daughter Breast cancer bilateral mastectomy Social History Social History Social History: The patient lives with her daughter. 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 Her son Abel is a durable power estate planning attorney for healthcare. And she desires to be a full code. She denies any alcohol, marijuana, tobacco Nor illicit drugs. Smoking status: Never smoker Second hand tobacco smoke exposure: No Alcohol intake: never Alcohol use details: once a month Substance use: never Substance use type: does not use Other substance usage details: Rarely Lack of Transportation: No Lack of Food: Never True Current Housing: Decline to Answer Concerned About Future Housing: Decline to Answer Difficulty Paying Gas/Electric Bills: Decline to Answer Difficulty Paying for Meds: Decline to Answer Currently Unemployed: Decline to Answer Education: Decline to Answer Difficulty w/ Childcare or Family Care: Decline to Answer Living arrangements: with family Gender identity (if verbalized by the patient): Female Spiritual care concerns: No Exam Narrative: GENERAL: agitated, not any physical distress, alert to her name only HEAD: [Normocephalic, atraumatic.] EYES: [PERRLA and EOMI.] ENT: Nares clear, no rhinorrhea or epistaxis. Mucous membranes moist. NECK: Supple. CHEST: [Clear to auscultation. No respiratory distress.] HEART: [Regular rate and rhythm]. No murmur heard. [Normal peripheral pulses.] ABDOMEN: [Soft, nondistended], [nontender], [No rigidity or guarding] EXTREMITIES: Normal range of motion. [No edema.] SKIN: Warm, dry, no rash. NEURO: no focal deficits or ataxia. No facial asymmetry or dysarthria / dysphonia. Cranial nerves 2-12 intact, no strength or sensory deficits in the arms or legs, alert to her name only. PSYCH: agitated Course Vital Signs Vital signs: Vital Signs Temperature 36.4 C L 08/07/25 20:23 Pulse Rate 72 08/07/25 20:23 Respiratory Rate 13 08/07/25 20:23 Blood Pressure 130/79 08/07/25 20:23 Pulse Oximetry 99 08/07/25 20:23 Oxygen Delivery Room Air 08/07/25 20:23 Temperature 36.2 C L 08/08/25 00:15 Pulse Rate 79 08/08/25 00:15 Respiratory Rate 18 08/08/25 00:15 Blood Pressure 123/73 08/08/25 00:15 Pulse Oximetry 99 08/08/25 00:15 Oxygen Delivery Room Air 08/07/25 21:03 [facility] MDM Narrative Medical decision making narrative: 89-year-old female with history of Alzheimer's dementia with cognitive impairment, hypertension, HLD, prior CVA. Patient presents to the emergency department via EMS from home. Patient's daughter companies the patient and states that she is confused and acting and talking crazy and she has been having having agitation. Patient does have a history of Alzheimer's and seen neurology for this previously. Her daughter states she is not on any medications for Alzheimer's or any agitation symptom control. Per EMR documentation patient was admitted to the hospital this week for nausea vomiting mental status changes and had a broad workup with plans for discharge to a skilled care facility and rehab/nursing facility but family prefer to go home. I discussed this with the daughter and she states this conversation never happened and she was not aware of any nursing facility recommendations but would like to pursue that and have the patient admitted again. Patient herself is answering questions about her name but otherwise not answering any questions or following commands. Does not appear to be in any distress but agitated with the situation. denies any fall or injury and family states that she has not fallen or injured herself recently. She does have a history urinary incontinence and had trouble going to the bathroom today so family thinks it could also be urinary infection. Patient herself not complaining anything but also not answering anything appropriately. Alert oriented x1 at this time. patient is agitated and only alert to her name but does have history of significant Alzheimer's per Neurology notes this week and supposedly not on any medications to control this. She is on aspirin Plavix and a statin for her previous strokes as well as blood pressure medicine. No falls or injuries. She has no focal neurological deficits and appears just confused and agitated. Possibility of some infectious pathology causing this such as urinary infection or less likely pneumonia with no cough, fever, hypoxia or respiratory complaints. Less likely new acute stroke or intracranial pathology and likely a progression of her cognitive impairment and Alzheimer's disease given her age and risk factors. Will obtain CT head, and laboratory studies as well as urinalysis. Patient will be admitted to the hospital upon completion of workup for continued care and placement if needed. Spoke to the hospitalist YOSSI Farley who accepted the patient to the hospital at this time. CT of the head unremarkable. Urine unremarkable. Laboratories unremarkable. Patient likely has delirium versus advancing dementia causing her symptoms. Differential Diagnosis Differential Diagnosis: Possibility of some infectious pathology causing this such as urinary infection or less likely pneumonia, less likely new acute stroke or intracranial pathology and likely a progression of her cognitive impairment and Alzheimer's disease given her age and risk factors. Lab Data MDM Lab Attestation statement: I personally reviewed the patient's lab results. 08/07/25 21:22 08/07/25 21:22 Labs: Lab Results 08/07/25 08/07/25 Range/Units 21:22 21:36 WBC 7.4 (4.5-10.0) K/mm3 RBC 4.27 (4.2-5.4) M/mm3 Hgb 13.9 (12.0-15.0) g/dL Hct 40.3 (37.0-47.0) % MCV 94.4 (80-100) fl MCH 32.6 (26-34) pg MCHC 34.5 (32-36) g/dl RDW 13.3 (11.5-14.5) % Plt Count 141 L (150-375) k/mm3 MPV 11.2 H (7.4-10.4) fl Immature Gran % (Auto) 0.1 (0-0.5) % Neut % (Auto) 61.5 (45.5-73.1) % Lymph % (Auto) 28.5 (18.3-44.2) % [place] % (Auto) 7.1 (2.6-8.5) % Eos % (Auto) 2.3 (0-4.4) % Baso % (Auto) 0.5 (0.2-1.2) % Lymph # (Auto) 2.12 (0.9-3.2) K/mm3 [place] # (Auto) 0.5 (0.1-0.6) K/mm3 Eos # (Auto) 0.2 (0-0.3) K/mm3 Baso # (Auto) 0.0 (0.0-0.1) K/mm3 Abs Immat Gran (auto) 0.01 (0.00-0.031) K/mm3 Absolute Neuts (auto) 4.6 (1.3-6.7) K/mm3 Absolute Nucleated RBC 0.000 (0.0-0.012) K/mm3 Nucleated RBC % 0.0 (0.0-0.2) % PT 13.5 (11.1-14.7) Seconds INR 1.0 APTT 27.4 (22.3-36.8) Seconds Sodium 134 L (137-145) mmol/L Potassium 3.7 (3.4-5.0) mmol/L Chloride 107 (98-107) mmol/L Carbon Dioxide 21 L (22-30) mmol/L Anion Gap 6 (4-12) mmol/L BUN 23 H (7-17) mg/dL Creatinine 1.16 H (0.7-1.0) mg/dL Estim Creat Clear Calc Not Reportable Estimated GFR 44 L (59 - ) Glucose 98 (65-110) mg/dL Calcium 9.5 (8.4-10.2) mg/dL Total Bilirubin 0.9 (0.2-1.3) mg/dL AST 36 (14-36) U/L ALT 21 (6-35) U/L Alkaline Phosphatase 160 H (38-126) U/L Total Protein 7.3 (6.3-8.2) g/dL Albumin 4.0 (3.5-5.1) g/dL Urine Color Yellow (Yellow) Urine Appearance Clear (Clear) Urine pH 6.5 (5.0-9.0) Ur Specific [place] 1.012 (1.001-1.035) Urine Protein Negative (Negative) mg/dL Urine Glucose (UA) Negative (Negative) mg/dL Urine Ketones Negative (Negative) mg/dL Ur Blood (Man) Negative (Negative) Urine Nitrate Negative (Negative) Urine Bilirubin Negative (Negative) Urine Urobilinogen 0.2 (<2.0) mg/dL Leukocyte Esterase Rfl Negative (Negative) VINI/UL Imaging Data Attestation: I personally reviewed and interpreted this imaging study as follows: My impression: Impressions Head CT 08/07/25 21:03 IMPRESSION: No acute intracranial hemorrhage or extra axial fluid collections. All CT scans at this facility are performed using low dose modulation techniques as appropriate to perform exam including the following: automated exposure control; use of iterative reconstruction technique; adjustment of the mA and/or kV according to patient size (this includes techniques or standardized protocols for targeted exams where dose is matched to indication/reason for exam). Radiologist's impression: ITS Impressions Head CT 08/07/25 21:03 IMPRESSION: No acute intracranial hemorrhage or extra axial fluid collections. All CT scans at this facility are performed using low dose modulation techniques as appropriate to perform exam including the following: automated exposure control; use of iterative reconstruction technique; adjustment of the mA and/or kV according to patient size (this includes techniques or standardized protocols for targeted exams where dose is matched to indication/reason for exam). Discharge Plan Discharge Clinical Impression: Dementia, AMS (altered mental status) Patient Disposition: Still a Patient Condition: Stable
[2025-08-07 21:29] LABS: Hematocrit 40.3 % (37.0-47.0); Hemoglobin 13.9 g/dL (12.0-15.0); Immature Granulocyte Percent A 0.1 % (0-0.5); Lymphocytes Absolute Auto 2.12 K/mm3 (0.9-3.2); Mean Corpuscular HGB Conc 34.5 g/dl (32-36); Mean Corpuscular Hemoglobin 32.6 pg (26-34); Mean Corpuscular Volume 94.4 fl (80-100); Nucleated Red Blood Cells Absolute Auto 0.000 K/mm3 (0.0-0.012); Nucleated Red Blood Cells Perc 0.0 % (0.0-0.2); Platelet Count Result 141 k/mm3 (150-375); Red Blood Count 4.27 M/mm3 (4.2-5.4); White Blood Count 7.4 K/mm3 (4.5-10.0)
[2025-08-07 21:40] LABS: Alanine Aminotransferase 21 U/L (6-35); Albumin Level 4.0 g/dL (3.5-5.1); Alkaline Phosphatase 160 U/L (38-126); Anion Gap 6 mmol/L (4-12); Aspartate Amino Transferase 36 U/L (14-36); Bilirubin,Total 0.9 mg/dL (0.2-1.3); Blood Urea Nitrogen 23 mg/dL (7-17); Calcium 9.5 mg/dL (8.4-10.2); Carbon Dioxide 21 mmol/L (22-30); Chloride 107 mmol/L (98-107); Estimated Glomerular Filt Rate 44; Glucose 98 mg/dL (65-110); INR 1.0; Partial Thromboplastin Time 27.4 Seconds (22.3-36.8); Potassium 3.7 mmol/L (3.4-5.0); Prothrombin Time 13.5 Seconds (11.1-14.7); Sodium 134 mmol/L (137-145); Total Protein 7.3 g/dL (6.3-8.2)
[2025-08-07 21:42] LABS: Add Urine Microscopic? NO; Appearance Urine Clear (Clear); Glucose Urine UA Negative (Negative); Leukocyte Esterase Ur Negative LEU/UL (Negative); Nitrate Urine Negative (Negative); Specific Grav Ur 1.012 (1.001-1.035)
[2025-08-07 22:46] VITALS: BP 137/57; PULSE 73; RESP 15; O2SAT 100
--- NOTE | 2025-08-07 23:23 | WPCEDHO ---
ED Hand Off Checklist All vitals saved:Yes IV Site documented:Yes All med administrations documented:Yes Triage Note Triage Note Pt to ED via EMS coming from home 08/07/25 20:23 . Pt lives with daughter. Pt daughter called EMS due to pt being more confused, weak, and making a suicidal statement. Pt does follow commands. Pt is A&Ox0 at this time. Per EMS pt daughter was a poor historian. Pt has a hx of HTN, high cholestrol , and UTIs. Pt daughter states pt was going to grab a knife and stab herself. Pt recently had a Loop recorder placed. Daughter at bedside now. Daughter states pt as recently diagnosed with Alheizmers. Allergies succinylcholine Allergy (Severe, Verified 08/01/25 14:45) HARD TO WAKE UP allopurinol Allergy (Unknown, Verified 08/01/25 14:45) Unknown celecoxib Allergy (Unknown, Verified 08/01/25 14:45) Not Entered,Unknown doxycycline Allergy (Unknown, Verified 08/01/25 14:45) Not Entered,Unknown erythromycin base Allergy (Unknown, Verified 08/01/25 14:45) MYCINS levofloxacin Allergy (Unknown, Verified 08/01/25 14:45) Rash,Unknown Penicillins Allergy (Unknown, Verified 08/02/25 01:08) Not Entered,Unknown Sulfa (Sulfonamide Antibiotics) Allergy (Unknown, Verified 08/02/25 01:08) Not Entered,Unknown Family History (Last Reviewed 08/07/25 @ 21:25 by Elio Mejia MD) Father Family history of coronary artery disease Hypertension Mother Family history of coronary artery disease Hypertension Sibling Dementia Daughter Breast cancer Interventions/Assessments IV / Saline Lock, Insert Start: 08/07/25 20:35 Freq: STAT Status: Active Protocol: Document 08/07/25 21:33 KRZ (Rec: 08/07/25 21:33 KRZ [id number]) IV Assessment Peripheral Access Right Antecubital IV Catheter Access Initiated IV Insertion Date 08/07/25 IV Insertion Time 21:33 Catheter Gauge 22 IV Site Assessment WNL IV Care and WNL Maintenance PA: Cardiovascular Assessment Start: 08/07/25 20:13 Freq: Status: Active Protocol: Document 08/07/25 21:03 KRZ (Rec: 08/07/25 21:05 KRZ [id number]) Cardiovascular Assessment Cardiovascular None Symptoms Skin Description Normal Color Heart Sounds Normal Chest Pain Assessment Chest Pain Intensity 0 PA: Neurological Assessment Start: 08/07/25 20:13 Freq: Status: Active Protocol: Document 08/07/25 21:03 CHRISTEL (Rec: 08/07/25 21:05 CHRISTEL [id number]) Neurological Assessment Level of Alert Consciousness Arousable to Verbal Orientation Oriented to Person Neurological Confusion,Weakness, General Symptoms Hallucination Type None Behavior Cooperative Patient Unable to Comprehend Comprehension Ability to Maintain Unable to Assess Balance Facial Symmetry Symmetrical Speech Pattern Garbled Maritza Coma Scale Eyes Open Verbal Disoriented Motor Follows Commands Maritza Coma Total 14 Score PA: Respiratory Assessment Start: 08/07/25 20:13 Freq: Status: Active Protocol: Document 08/07/25 21:03 CHRISTEL (Rec: 08/07/25 21:05 CHRISTEL [id number]) Respiratory Assessment Symptoms Shortness of Breath at Rest Effort Short of Breath Depth Shallow Chest Expansion Symmetrical Adult Capillary Normal/Less than 2 Seconds Refill Bilateral Throughout Phase Inspiratory & Expiratory Lung Sounds Coarse Cough Description None Oxygen Delivery Oxygen Delivery Room Air Pulse Oximetry (90- 100 100) Last Vital Signs Temperature 97.5 F L 08/07/25 20:23 Pulse Rate 73 08/07/25 22:46 Respiratory Rate 15 08/07/25 22:46 Pulse Oximetry 100 08/07/25 22:46 Blood Pressure 137/57 L 08/07/25 22:46 Blood Pressure Mean 79 08/07/25 22:46 Oxygen Delivery Room Air 08/07/25 21:03 Weight 72.7 kg 08/07/25 20:23 Last Result - Abnormals Only Plt Count 141 k/mm3 (150-375) L 08/07/25 21:22 MPV 11.2 fl (7.4-10.4) H 08/07/25 21:22 Sodium 134 mmol/L (137-145) L 08/07/25 21:22 Carbon Dioxide 21 mmol/L (22-30) L 08/07/25 21:22 BUN 23 mg/dL (7-17) H 08/07/25 21:22 Creatinine 1.16 mg/dL (0.7-1.0) H 08/07/25 21:22 Estimated GFR 44 (59-) L 08/07/25 21:22 Alkaline Phosphatase 160 U/L (38-126) H 08/07/25 21:22
--- NOTE | 2025-08-08 | PM.IMHP2 ---
H&P: HPI History of Present Illness Date/Time: 08/08/25 00:00 Chief Complaint: Alzheimer's with mental status changes and agitation. Narrative: This is an 89-year-old female patient who resides at home with her daughter. The patient was recently discharged from here on 08/03/2025. According to the records, the family was offered long-term care. However today the daughter is denying this. The patient presented to the emergency room via EMS. She has a history of Alzheimer's dementia with cognitive impairment and prior CVA. The daughter is at the bedside offering history. According to the patient's daughter she is more confused tonight and acting abnormal. According to the daughter her speech is abnormal in the patient is more confused. Her sodium was slightly low at 134. BUN is 23 creatinine 1.16. GFR is 44. Head CT shows no acute intracranial hemorrhage or extra-axial fluid collection. The daughter stated that she is the [id number] for healthcare and not the patient's son Abel. She also stated that she would like her mother to go to Memory Care. The patient is being admitted to observation status on the date of service of 08/08/2025. Review of Systems Review of Systems: ROS unobtainable: Yes unobtainable due to medical condition PMFSH Past Medical History Medical History (Updated 08/08/25 @ 01:09 by Martine Dye APRN) DVT (deep venous thrombosis) MCI (mild cognitive impairment) Paresthesia of right upper limb Vitamin D3 deficiency Osteopenia History of TIA (transient ischemic attack) and stroke History of cerebrovascular accident Loss of right hand dexterity Class 1 obesity with body mass index (BMI) of 31.0 to 31.9 in adult Degenerative disc disease Anemia Cough Polyarthralgia Status post placement of implantable loop recorder Follows with Dr Basurto q 6 months History of PSVT (paroxysmal supraventricular tachycardia) Overactive bladder Personal history of transient ischemic attack (TIA), and cerebral infarction without residual deficits History of esophageal dilatation Gout Shingles TIA (transient ischemic attack) (~05/2023) GERD without esophagitis History of DVT (deep vein thrombosis) Hypertension, essential, benign Lesion of hard palate Mixed hyperlipidemia History of unsteady gait Surgical History Surgical History H/O dilation and curettage S/P rotator cuff repair Hx of total knee arthroplasty Left History of cataract extraction Family History Family History Father Family history of coronary artery disease Hypertension Mother Family history of coronary artery disease Hypertension Sibling Dementia Daughter Breast cancer bilateral mastectomy Social History Social History Social History: The patient lives with her daughter. 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 Her son Abel is a durable power sports attorney for healthcare. And she desires to be a full code. She denies any alcohol, marijuana, tobacco Nor illicit drugs. Smoking status: Never smoker Second hand tobacco smoke exposure: No Alcohol intake: never Alcohol use details: once a month Substance use: never Substance use type: does not use Other substance usage details: Rarely Lack of Transportation: No Lack of Food: Never True Current Housing: Decline to Answer Concerned About Future Housing: Decline to Answer Difficulty Paying Gas/Electric Bills: Decline to Answer Difficulty Paying for Meds: Decline to Answer Currently Unemployed: Decline to Answer Education: Decline to Answer Difficulty w/ Childcare or Family Care: Decline to Answer Living arrangements: with family Gender identity (if verbalized by the patient): Female Spiritual care concerns: No Meds Home Medications and Allergies Home Medications ?Medication ?Instructions ?Recorded ?Confirmed ?Type acetaminophen 650 mg 650 mg PO Q8H PRN Pain, Mild 05/06/20 08/08/25 History tablet,extended release (Tylenol Arthritis Pain) losartan 25 mg tablet 25 mg PO DAILY #90 tabs 03/27/25 08/08/25 Rx alendronate 70 mg tablet 70 mg PO WEEKLY #12 tabs 04/14/25 08/08/25 Rx clopidogrel 75 mg tablet 75 mg PO DAILY #90 tabs 07/05/25 08/08/25 Rx atorvastatin 40 mg tablet 40 mg PO QHS #90 tabs 07/28/25 08/08/25 Rx aspirin 81 mg capsule 81 mg PO DAILY 08/02/25 08/08/25 History mirabegron 50 mg tablet,extended 25 mg PO DAILY 08/02/25 08/08/25 History release 24 hr (Myrbetriq) Allergies Allergy/AdvReac Type Severity Reaction Status Date / Time succinylcholine Allergy Severe HARD TO Verified 08/08/25 00:28 WAKE UP allopurinol Allergy Unknown Unknown Verified 08/08/25 00:28 celecoxib Allergy Unknown Not Verified 08/08/25 00:28 Entered,Unknown doxycycline Allergy Unknown Not Verified 08/08/25 00:28 Entered,Unknown erythromycin base Allergy Unknown MYCINS Verified 08/08/25 00:28 levofloxacin Allergy Unknown Rash,Unknow Verified 08/08/25 00:28 n Penicillins Allergy Unknown Not Verified 08/08/25 00:28 Entered,Unknown Sulfa (Sulfonamide Allergy Unknown Not Verified 08/08/25 00:28 Antibiotics) Entered,Unknown Vital Signs Vital Signs - 24 hr 08/07/25 20:23 08/07/25 20:32 08/07/25 20:47 Temperature 97.5 F L Pulse Rate 72 71 74 Respiratory Rate 13 19 16 Blood Pressure 130/79 130/79 147/48 H Pulse Oximetry 99 100 100 Oxygen Delivery Room Air 08/07/25 21:03 08/07/25 21:04 08/07/25 22:46 Temperature Pulse Rate 73 73 Respiratory Rate 19 15 Blood Pressure 164/73 H 137/57 L Pulse Oximetry 100 100 100 Oxygen Delivery Room Air Exam Const: General: cooperative, comfortable, no acute distress, well developed, awake, Physically active, average body habitus and well nourished Nutritional Appearance: average body habitus and well nourished Orientation/consciousness: oriented to person Other: Appears stated age HENMT: Head: normal to inspection, No palpable skull fracture present, normocephalic, atraumatic and abrasion Eyes: General: appearance normal, both eyes and all related structures Alignment and Position: alignment normal Eyelids: eyelids normal Pupils: Equal, round and reactive pupils present and Pupil accommodation reflex normal EOM: EOMs intact bilaterally Neck: Neck: normal visual inspection, full ROM and no lymphadenopathy Chest: Chest palpation & inspection: normal inspection of the chest Resp: Effort & Inspection: normal respiratory effort Auscultation: clear to auscultation bilaterally Cardio: Palpation: normal PMI Rate: regular rate Rhythm: regular rhythm Heart sounds: S1 normal heart sound present and S2 normal heart sound present Peripheral pulses: Peripheral pulses 2+ throughout GI: Inspection: normal to inspection Auscultation: normal bowel sounds Rectal Exam: deferred Skin: General skin exam: normal color Lesions: no lesions Rashes: no rashes Neuro: General: oriented to person Cranial nerves: Yes Equal, round and reactive pupils present Other: She is hard of hearing to both ears. Abnormal speech. She continues to answer every question with ?okay? Extrem: General: normal to inspection Right upper extremity: normal to inspection and shoulder/upper arm Left upper extremity: normal to inspection and shoulder/upper arm Right lower extremity: normal to inspection Left lower extremity: normal to inspection Other: She is able to move all extremities. Psych: Appearance: grossly normal Other: The patient was initially agitated and trying to get out of bed in the emergency room. Once she got to 3rd floor into a normal bed she come down. Results Labs Labs: Short CBC 08/07/25 Range/Units 21:22 WBC 7.4 (4.5-10.0) K/mm3 Hgb 13.9 (12.0-15.0) g/dL Hct 40.3 (37.0-47.0) % Plt Count 141 L (150-375) k/mm3 BMP 08/07/25 21:22 Sodium 134 L Potassium 3.7 Chloride 107 Carbon Dioxide 21 L BUN 23 H Creatinine 1.16 H Glucose 98 Calcium 9.5 Liver Function 08/07/25 Range/Units 21:22 Total Bilirubin 0.9 (0.2-1.3) mg/dL AST 36 (14-36) U/L ALT 21 (6-35) U/L Alkaline Phosphatase 160 H (38-126) U/L Albumin 4.0 (3.5-5.1) g/dL Urine 08/07/25 Range/Units 21:36 Urine Color Yellow (Yellow) Urine Appearance Clear (Clear) Urine pH 6.5 (5.0-9.0) Ur Specific Model 1.012 (1.001-1.035) Urine Protein Negative (Negative) mg/dL Urine Glucose (UA) Negative (Negative) mg/dL Attestation: I personally reviewed all lab results ECG Interpretation: 72 NE 158 QRSd 82 QT 366 QTc 402 --[place]-- P 50 QRS 38 T 29 SINUS RHYTHM Compared to ECG 04/27/2025 17:11:15 No significant changes Imaging CT scan - head: Attestation: I personally reviewed this imaging study Radiologist's impression: ITS Impressions Head CT 08/07/25 21:03 IMPRESSION: No acute intracranial hemorrhage or extra axial fluid collections. All CT scans at this facility are performed using low dose modulation techniques as appropriate to perform exam including the following: automated exposure control; use of iterative reconstruction technique; adjustment of the mA and/or kV according to patient size (this includes techniques or standardized protocols for targeted exams where dose is matched to indication/reason for exam). Quality VTE Prophylaxis VTE prophylaxis: mechanical ordered Assessment and Plan Assessment and plan (1) Altered mental status: Code(s): R41.82 - Altered mental status, unspecified Status: Acute Assessment and Plan: -head CT was negative. MRI was offered however the daughter declined and stated that she had MRI last admission. -the patient is very hard of hearing and is difficult to communicate with. Every question that is asked the patient states answers with ?okay?. -she is able to move all extremities without difficulty. She follows some commands. -no signs symptoms of infection at this time. -the patient has a history of TIAs and CVAs. She was recently evaluated by Neurology her last admission. - the daughter asked for a adriana to see the patient. (2) Hypertension, essential, benign: Code(s): I10 - Essential (primary) hypertension Status: Acute Assessment and Plan: -continue with losartan and monitor BMP. (3) Mixed hyperlipidemia: Code(s): E78.2 - Mixed hyperlipidemia Status: Acute Assessment and Plan: -continue with atorvastatin. Monitor liver enzymes. (4) Overactive bladder: Code(s): N32.81 - Overactive bladder Status: Acute Assessment and Plan: -continue Myrbetriq (5) Personal history of transient ischemic attack (TIA), and cerebral infarction without residual deficits: Code(s): Z86.73 - Personal history of transient ischemic attack (TIA), and cerebral infarction without residual deficits Status: Acute Assessment and Plan: -continue with aspirin and Plavix.
[2025-08-08 00:15] VITALS: BP 123/73; PULSE 79; RESP 18; TEMP 36.2; O2SAT 99
[2025-08-08 05:58] VITALS: BP 151/74; PULSE 78; RESP 16; TEMP 37.1; O2SAT 95
[2025-08-08 06:21] LABS: Hematocrit 40.3 % (37.0-47.0); Hemoglobin 13.5 g/dL (12.0-15.0); Immature Platelet Fraction Pct 6.4 % (0.9-11.2); Mean Corpuscular HGB Conc 33.5 g/dl (32-36); Mean Corpuscular Hemoglobin 32.5 pg (26-34); Mean Corpuscular Volume 96.9 fl (80-100); Platelet Count Result 135 k/mm3 (150-375); Red Blood Count 4.16 M/mm3 (4.2-5.4); White Blood Count 8.1 K/mm3 (4.5-10.0)
[2025-08-08 06:43] LABS: Anion Gap 6 mmol/L (4-12); Blood Urea Nitrogen 21 mg/dL (7-17); Calcium 9.3 mg/dL (8.4-10.2); Carbon Dioxide 23 mmol/L (22-30); Chloride 106 mmol/L (98-107); Estimated Glomerular Filt Rate 45; Glucose 99 mg/dL (65-110); Potassium 3.8 mmol/L (3.4-5.0); Sodium 135 mmol/L (137-145)
[2025-08-08] MEDS: CLOPIDOGREL BISULFATE 75 MG TABLET PO (08:49)
[2025-08-08] MEDS: ASPIRIN 81 MG ENTERIC TABLET PO (08:49)
[2025-08-08] MEDS: LOSARTAN POTASSIUM 25 MG TABLET PO (08:49)
[2025-08-08] MEDS: MIRABEGRON 25 MG ER TABLET PO (08:49)
--- NOTE | 2025-08-08 12:27 | P.PNIM_ITS ---
Assessment and Plan Assessment and Plan (1) Hypertension, essential, benign: Code(s): I10 - Essential (primary) hypertension Status: Acute (2) Chronic kidney disease, stage 3b: Code(s): N18.32 - Chronic kidney disease, stage 3b Status: Acute (3) AMS (altered mental status): Code(s): R41.82 - Altered mental status, unspecified Status: Acute (4) MCI (mild cognitive impairment): Code(s): G31.84 - Mild cognitive impairment of uncertain or unknown etiology Status: Acute Plan 89-year-old female patient who resides at home with her daughter, recently discharged from here on 08/03/2025 presented with worsening confusion. During her prior hospitalization, family was offered long-term care, which was refused She has a history of Alzheimer's dementia with cognitive impairment and prior CVA. Head CT shows no acute intracranial hemorrhage or extra-axial fluid collection. Daughter wants her mother to go to the memory care unit. 1. Worsening confusion with baseline history of Alzheimer's disease: Monitor for mental status changes PT/OT Care coordination To help with placement 2. Continue with home medications 3. Code status: Full 4. DVT prophylaxis: Heparin subQ 5. Disposition: Pending placement Time Spent With Patient Time with patient: 15 - 25 minutes Subjective Date/time seen: 08/08/25 12:27 Interval history: No acute events overnight Review of Systems Review of Systems: ROS unobtainable: Yes unobtainable due to medical condition Exam Const: General: cooperative and comfortable HENMT: Head: normocephalic Eyes: Eyelids: eyelids normal Neck: Neck: normal visual inspection Resp: Auscultation: clear to auscultation bilaterally Cardio: Rate: regular rate Rhythm: regular rhythm GI: Inspection: normal to inspection Auscultation: normal bowel sounds Skin: General skin exam: normal color Neuro: General: oriented to person Cranial nerves: Yes Equal, round and re active pupils present Other: She is hard of hearing to both ears. Abnormal speech. She continues to answer every question with ?okay? Extrem: Other: She is able to move all extremities. Psych: Appearance: grossly normal Objective Data Vital Signs Vital Signs: Vital Signs - 24 hr 08/07/25 20:23 08/07/25 20:32 08/07/25 20:47 Temperature 97.5 F L Pulse Rate 72 71 74 Respiratory Rate 13 19 16 Blood Pressure 130/79 130/79 147/48 H Pulse Oximetry 99 100 100 Oxygen Delivery Room Air 08/07/25 21:03 08/07/25 21:04 08/07/25 22:46 Temperature Pulse Rate 73 73 Respiratory Rate 19 15 Blood Pressure 164/73 H 137/57 L Pulse Oximetry 100 100 100 Oxygen Delivery Room Air 08/08/25 00:15 08/08/25 05:58 Temperature 97.1 F L 98.8 F Pulse Rate 79 78 Respiratory Rate 18 16 Blood Pressure 123/73 151/74 H Pulse Oximetry 99 95 Oxygen Delivery Intake/Output Intake/Output: Intake & Output 08/05/25 08/06/25 08/07/25 08/08/25 23:59 23:59 23:59 23:59 Intake Total 360 Output Total 150 Balance -150 360 Meds/Results Medications: Active Medications Generic Name Dose Route Start Last Admin Trade Name Freq PRN Reason Stop Dose Admin Acetaminophen 650 mg 08/07/25 22:48 Acetaminophen 325 Mg Tablet PO Q4H PRN Mild Pain (1-3) or Fever Alendronate Sodium 70 mg 08/14/25 09:00 Alendronate Sodium 70 Mg Tablet PO WEEKLY CAMMIE Aspirin 81 mg 08/08/25 09:00 08/08/25 08:49 Aspirin 81 Mg Enteric Tablet PO 81 mg QAM CAMMIE Administration Atorvastatin Calcium 40 mg 08/08/25 21:00 Atorvastatin 40 Mg Tablet PO QHS CAMMIE Clopidogrel Bisulfate 75 mg 08/08/25 09:00 08/08/25 08:49 Clopidogrel Bisulfate 75 Mg Tablet PO 75 mg DAILY CAMMIE Administration Losartan Potassium 25 mg 08/08/25 09:00 08/08/25 08:49 Losartan Potassium 25 Mg Tablet PO 25 mg DAILY CAMMIE Administration Mirabegron 25 mg 08/08/25 09:00 08/08/25 08:49 Mirabegron 25 Mg Er Tablet PO 25 mg DAILY CAMMIE Administration Ondansetron HCl 4 mg 08/07/25 22:48 Ondansetron Inj 4 Mg/2 Ml Vial IV PUSH Q4H PRN Nausea Polyethylene Glycol 17 gm 08/08/25 09:00 08/08/25 11:52 Polyethylene Glycol 3350 17 Gm Powd.Pack PO 17 gm QAM CAMMIE Administration Senna 8.6 mg 08/08/25 21:00 Sennosides 8.6 Mg Tablet PO HS [facility] Radiology Results: ITS Impressions Head CT 08/07/25 21:03 IMPRESSION: No acute intracranial hemorrhage or extra axial fluid collections. All CT scans at this facility are performed using low dose modulation techniques as appropriate to perform exam including the following: automated exposure control; use of iterative reconstruction technique; adjustment of the mA and/or kV according to patient size (this includes techniques or standardized protocols for targeted exams where dose is matched to indication/reason for exam). Labs Labs: Laboratory Results - last 24 hr 08/07/25 08/07/25 08/08/25 21:22 21:36 05:17 WBC 7.4 8.1 RBC 4.27 4.16 L Hgb 13.9 13.5 Hct 40.3 40.3 MCV 94.4 96.9 MCH 32.6 32.5 MCHC 34.5 33.5 RDW 13.3 13.3 Plt Count 141 L 135 L MPV 11.2 H 11.8 H Immature Gran % (Auto) 0.1 Neut % (Auto) 61.5 Lymph % (Auto) 28.5 [place] % (Auto) 7.1 Eos % (Auto) 2.3 Baso % (Auto) 0.5 Lymph # (Auto) 2.12 [place] # (Auto) 0.5 Eos # (Auto) 0.2 Baso # (Auto) 0.0 Abs Immat Gran (auto) 0.01 Absolute Neuts (auto) 4.6 Absolute Nucleated RBC 0.000 Nucleated RBC % 0.0 % Immature Plt Fraction 6.4 PT 13.5 INR 1.0 APTT 27.4 Sodium 134 L 135 L Potassium 3.7 3.8 Chloride 107 106 Carbon Dioxide 21 L 23 Anion Gap 6 6 BUN 23 H 21 H Creatinine 1.16 H 1.13 H Estim Creat Clear Calc Not Reportable Not Reportable Estimated GFR 44 L 45 L Glucose 98 99 Calcium 9.5 9.3 Total Bilirubin 0.9 AST 36 ALT 21 Alkaline Phosphatase 160 H Total Protein 7.3 Albumin 4.0 Urine Color Yellow Urine Appearance Clear Urine pH 6.5 Ur Specific [place] 1.012 Urine Protein Negative Urine Glucose (UA) Negative Urine Ketones Negative Ur Blood (Man) Negative Urine Nitrate Negative Urine Bilirubin Negative Urine Urobilinogen 0.2 Leukocyte Esterase Rfl Negative Quality VTE Prophylaxis VTE prophylaxis: pharmacologic ordered
[2025-08-08 14:00] VITALS: BP 152/65; PULSE 60; RESP 19; TEMP 36.8; O2SAT 97
[2025-08-08 20:00] VITALS: PULSE 65; RESP 20; O2SAT 96
[2025-08-08] MEDS: SENNOSIDES 8.6 MG TABLET PO (20:30)
[2025-08-08] MEDS: ATORVASTATIN 40 MG TABLET PO (20:30)
[2025-08-08 20:56] VITALS: O2SAT 97
[2025-08-08 21:20] VITALS: BP 141/63; PULSE 65; RESP 20; TEMP 36.7; O2SAT 96
[2025-08-09 05:15] VITALS: BP 147/56; PULSE 62; RESP 20; TEMP 36.5; O2SAT 96
[2025-08-09 06:06] LABS: Hematocrit 42.5 % (37.0-47.0); Hemoglobin 14.1 g/dL (12.0-15.0); Immature Platelet Fraction Pct 6.3 % (0.9-11.2); Mean Corpuscular HGB Conc 33.2 g/dl (32-36); Mean Corpuscular Hemoglobin 32.3 pg (26-34); Mean Corpuscular Volume 97.5 fl (80-100); Platelet Count Result 119 k/mm3 (150-375); Red Blood Count 4.36 M/mm3 (4.2-5.4); White Blood Count 6.4 K/mm3 (4.5-10.0)
[2025-08-09 06:25] LABS: Anion Gap 7 mmol/L (4-12); Blood Urea Nitrogen 17 mg/dL (7-17); Calcium 9.0 mg/dL (8.4-10.2); Carbon Dioxide 23 mmol/L (22-30); Chloride 109 mmol/L (98-107); Estimated Glomerular Filt Rate 47; Glucose 99 mg/dL (65-110); Potassium 3.8 mmol/L (3.4-5.0); Sodium 139 mmol/L (137-145)
[2025-08-09] MEDS: CLOPIDOGREL BISULFATE 75 MG TABLET PO (08:48)
[2025-08-09] MEDS: ASPIRIN 81 MG ENTERIC TABLET PO (08:48)
[2025-08-09] MEDS: LOSARTAN POTASSIUM 25 MG TABLET PO (08:48)
[2025-08-09] MEDS: MIRABEGRON 25 MG ER TABLET PO (08:48)
--- NOTE | 2025-08-09 13:12 | PM.IMPN2 ---
Assessment and Plan Assessment and Plan (1) AMS (altered mental status): Code(s): R41.82 - Altered mental status, unspecified Status: Acute (2) Hypertension, essential, benign: Code(s): I10 - Essential (primary) hypertension Status: Acute (3) Chronic kidney disease, stage 3b: Code(s): N18.32 - Chronic kidney disease, stage 3b Status: Acute (4) Dementia: Code(s): F03.90 - Unspecified dementia, unspecified severity, without behavioral disturbance, psychotic disturbance, mood disturbance, and anxiety Status: Acute Plan 89-year-old female patient who resides at home with her daughter, recently discharged from here on 08/03/2025 presented with worsening confusion. During her prior hospitalization, family was offered long-term care, which was refused She has a history of Alzheimer's dementia with cognitive impairment and prior CVA. Head CT shows no acute intracranial hemorrhage or extra-axial fluid collection. 1. Worsening confusion with baseline history of Alzheimer's disease: Monitor for mental status changes PT/OT Care coordination to help with placement 2. HTN: BP stable. Continue with home medications 3. CKD: Cr stable. Code status: Full DVT prophylaxis: Heparin subQ Disposition: Pending placement Subjective Date/time seen: 08/09/25 13:12 Interval history: 89yo female with dementia, HTN and hx of CVA here for mental status changes and agitation. The patient was recently discharged from here on 08/03/2025. Assuming care. Chart reviewed. Exam Narrative: AF 97.7 147/56 62 20 96% ra Gen - NARD Chest - CTA bilaterally, nml RR CV - RRR S1/S2 Abd - Soft, NT/ND, Positive BS Ext - No pedal edema Neuro - Alert and oriented. Nonfocal exam. Psych - Nml mood and affect Skin - Warm and dry Objective Data Vital Signs Vital Signs: Vital Signs - 24 hr 08/08/25 14:00 08/08/25 20:00 08/08/25 20:56 Temperature 98.2 F Pulse Rate 60 65 Respiratory Rate 19 20 Blood Pressure 152/65 H Pulse Oximetry 97 96 97 Oxygen Delivery Room Air Room Air 08/08/25 21:20 08/09/25 05:15 08/09/25 08:50 Temperature 98.1 F 97.7 F Pulse Rate 65 62 Respiratory Rate 20 20 Blood Pressure 141/63 H 147/56 H Pulse Oximetry 96 96 Oxygen Delivery Room Air 08/09/25 08:50 Temperature Pulse Rate Respiratory Rate Blood Pressure Pulse Oximetry Oxygen Delivery Room Air Intake/Output Intake/Output: Intake & Output 08/06/25 08/07/25 08/08/25 08/09/25 23:59 23:59 23:59 23:59 Intake Total 460 320 Output Total 150 1200 850 Balance -150 -740 -530 Meds/Results Medications: Active Medications Generic Name Dose Route Start Last Admin Trade Name Freq PRN Reason Stop Dose Admin Acetaminophen 650 mg 08/07/25 22:48 Acetaminophen 325 Mg Tablet PO Q4H PRN Mild Pain (1-3) or Fever Alendronate Sodium 70 mg 08/14/25 09:00 Alendronate Sodium 70 Mg Tablet PO WEEKLY CAMMIE Aspirin 81 mg 08/08/25 09:00 08/09/25 08:48 Aspirin 81 Mg Enteric Tablet PO 81 mg QAM CAMMIE Administration Atorvastatin Calcium 40 mg 08/08/25 21:00 08/08/25 20:30 Atorvastatin 40 Mg Tablet PO 40 mg QHS CAMMIE Administration Clopidogrel Bisulfate 75 mg 08/08/25 09:00 08/09/25 08:48 Clopidogrel Bisulfate 75 Mg Tablet PO 75 mg DAILY CAMMIE Administration Heparin Sodium (Porcine) 5,000 units 08/08/25 21:00 08/09/25 08:48 Heparin Sodium 5,000 Units/Ml Vial SUB-Q 5,000 units Q12HR CAMMIE Administration Losartan Potassium 25 mg 08/08/25 09:00 08/09/25 08:48 Losartan Potassium 25 Mg Tablet PO 25 mg DAILY CAMMIE Administration Mirabegron 25 mg 08/08/25 09:00 08/09/25 08:48 Mirabegron 25 Mg Er Tablet PO 25 mg DAILY CAMMIE Administration Ondansetron HCl 4 mg 08/07/25 22:48 Ondansetron Inj 4 Mg/2 Ml Vial IV PUSH Q4H PRN Nausea Polyethylene Glycol 17 gm 08/08/25 09:00 08/09/25 08:49 Polyethylene Glycol 3350 17 Gm Powd.Pack PO 17 gm QAM CAMMIE Administration Senna 8.6 mg 08/08/25 21:00 08/08/25 20:30 Sennosides 8.6 Mg Tablet PO 8.6 mg HS CAMMIE Administration Radiology Results: ITS Impressions Head CT 12/15/25 21:03 IMPRESSION: No acute intracranial hemorrhage or extra axial fluid collections. All CT scans at this facility are performed using low dose modulation techniques as appropriate to perform exam including the following: automated exposure control; use of iterative reconstruction technique; adjustment of the mA and/or kV according to patient size (this includes techniques or standardized protocols for targeted exams where dose is matched to indication/reason for exam). Labs Labs: Laboratory Results - last 24 hr 08/09/25 05:52 WBC 6.4 RBC 4.36 Hgb 14.1 Hct 42.5 MCV 97.5 MCH 32.3 MCHC 33.2 RDW 13.4 Plt Count 119 L MPV 11.6 H % Immature Plt Fraction 6.3 Sodium 139 Potassium 3.8 Chloride 109 H Carbon Dioxide 23 Anion Gap 7 BUN 17 Creatinine 1.09 H Estim Creat Clear Calc Not Reportable Estimated GFR 47 L Glucose 99 Calcium 9.0
[2025-08-09 14:00] VITALS: BP 145/57; PULSE 76; RESP 18; TEMP 36.1; O2SAT 93
[2025-08-09 20:00] VITALS: PULSE 76; RESP 18; O2SAT 93
[2025-08-09 21:00] VITALS: BP 169/73; PULSE 80; RESP 16; TEMP 36.7; O2SAT 97
[2025-08-09] MEDS: SENNOSIDES 8.6 MG TABLET PO (21:12)
[2025-08-09] MEDS: ATORVASTATIN 40 MG TABLET PO (21:12)
[2025-08-10 04:30] VITALS: BP 160/70; PULSE 69; RESP 20; TEMP 36.2; O2SAT 97
[2025-08-10 06:24] LABS: Hematocrit 44.5 % (37.0-47.0); Hemoglobin 14.5 g/dL (12.0-15.0); Immature Platelet Fraction Pct 6.8 % (0.9-11.2); Mean Corpuscular HGB Conc 32.6 g/dl (32-36); Mean Corpuscular Hemoglobin 31.8 pg (26-34); Mean Corpuscular Volume 97.6 fl (80-100); Platelet Count Result 138 k/mm3 (150-375); Red Blood Count 4.56 M/mm3 (4.2-5.4); White Blood Count 7.0 K/mm3 (4.5-10.0)
[2025-08-10 06:31] LABS: Ammonia < 9 umol/L (9-30)
[2025-08-10 06:44] LABS: Anion Gap 8 mmol/L (4-12); Blood Urea Nitrogen 19 mg/dL (7-17); Calcium 9.0 mg/dL (8.4-10.2); Carbon Dioxide 24 mmol/L (22-30); Chloride 107 mmol/L (98-107); Estimated Glomerular Filt Rate 46; Glucose 108 mg/dL (65-110); Potassium 3.7 mmol/L (3.4-5.0); Sodium 139 mmol/L (137-145)
[2025-08-10 07:14] LABS: Thyroid Stimulating Hormone Reflex 4.260 uIU/mL (0.465-4.68)
[2025-08-10 07:55] LABS: Vitamin B12 307.0 pg/mL (239-931)
[2025-08-10] MEDS: LOSARTAN POTASSIUM 25 MG TABLET PO (08:50)
[2025-08-10] MEDS: CLOPIDOGREL BISULFATE 75 MG TABLET PO (08:51)
[2025-08-10] MEDS: CHOLECALCIFEROL (VITAMIN D3) 25 MCG (1,000 UNITS) TABLET PO (08:51)
[2025-08-10] MEDS: MIRABEGRON 25 MG ER TABLET PO (08:51)
[2025-08-10] MEDS: ASPIRIN 81 MG ENTERIC TABLET PO (08:51)
[2025-08-10] MEDS: CYANOCOBALAMIN 1,000 MCG TABLET 1000 MCG PO (08:51)
[2025-08-10 12:18] LABS: Free T4 Free Thyroxine Reflex 1.48 ng/dL (0.78-2.19)
[2025-08-10 13:29] LABS: Total Triiodothyronine (T3) 0.89 NG/ML (0.82-1.58)
--- NOTE | 2025-08-10 13:53 | P.PNIM_ITS ---
Assessment and Plan Assessment and Plan (1) AMS (altered mental status): Code(s): R41.82 - Altered mental status, unspecified Status: Acute Assessment and Plan: Worsening confusion with baseline history of Alzheimer's disease Mental status stable. She remains alert but pleasantly confused. EKG showing no acute changes. Head CT shows no acute intracranial hemorrhage or extra-axial fluid collection. CBC normal except for mild thrombocytopenia. Electrolytes normal. UA clear. Ammonia <9. B12 307. VitD 22. Folate normal. TSH normal. PT/OT following. Care coordination to help with placement (2) Hypertension, essential, benign: Code(s): I10 - Essential (primary) hypertension Status: Acute Assessment and Plan: Patient's blood pressure was reviewed on 08/10 Blood pressure elevated at times Will continue to monitor for now. (3) Chronic kidney disease, stage 3b: Code(s): N18.32 - Chronic kidney disease, stage 3b Status: Acute Assessment and Plan: Cr stable and within her baseline of 1-1.3 Follow (4) Dementia: Code(s): F03.90 - Unspecified dementia, unspecified severity, without behavioral disturbance, psychotic disturbance, mood disturbance, and anxiety Status: Acute Assessment and Plan: Stable. Plan Code status: Full DVT prophylaxis: Heparin subQ Disposition: Pending placement Subjective Date/time seen: 08/10/25 13:53 Interval history: 89yo female with dementia, HTN and hx of CVA here for mental status changes and agitation. The patient was recently discharged from here on 08/03/2025. Assuming care. Chart reviewed. Patient is alert but confused and unable to provide hx. Review of Systems Review of Systems: ROS unobtainable: Yes unobtainable due to mental status Exam Narrative: AF 97.2 160/70 69 20 97% ra Gen - NARD Chest - CTA bilaterally, nml RR CV - RRR S1/S2 Abd - Soft, NT/ND, Positive BS Ext - trace pedal edema Neuro - Alert, confused. Cooperative Psych - Nml mood and affect Skin - Warm and dry Objective Data Vital Signs Vital Signs: Vital Signs - 24 hr 08/09/25 14:00 08/09/25 14:32 08/09/25 20:00 Temperature 97.0 F L Pulse Rate 76 76 Respiratory Rate 18 18 Blood Pressure 145/57 H Pulse Oximetry 93 93 Oxygen Delivery Room Air Room Air 08/09/25 21:00 08/10/25 04:30 08/10/25 08:51 Temperature 98.1 F 97.2 F L Pulse Rate 80 69 Respiratory Rate 16 20 Blood Pressure 169/73 H 160/70 H Pulse Oximetry 97 97 Oxygen Delivery Room Air Intake/Output Intake/Output: Intake & Output 08/07/25 08/08/25 08/09/25 08/10/25 23:59 23:59 23:59 23:59 Intake Total 460 560 650 Output Total 150 1200 850 Balance -150 -740 -290 650 Meds/Results Medications: Active Medications Generic Name Dose Route Start Last Admin Trade Name Freq PRN Reason Stop Dose Admin Acetaminophen 650 mg 08/07/25 22:48 Acetaminophen 325 Mg Tablet PO Q4H PRN Mild Pain (1-3) or Fever Alendronate Sodium 70 mg 08/14/25 09:00 Alendronate Sodium 70 Mg Tablet PO WEEKLY CAMMIE Aspirin 81 mg 08/08/25 09:00 08/10/25 08:51 Aspirin 81 Mg Enteric Tablet PO 81 mg QAM CAMMIE Administration Atorvastatin Calcium 40 mg 08/08/25 21:00 08/09/25 21:12 Atorvastatin 40 Mg Tablet PO 40 mg QHS CAMMIE Administration Clopidogrel Bisulfate 75 mg 08/08/25 09:00 08/10/25 08:51 Clopidogrel Bisulfate 75 Mg Tablet PO 75 mg DAILY CAMMIE Administration Cyanocobalamin 1,000 mcg 08/10/25 09:00 08/10/25 08:51 Cyanocobalamin 1,000 Mcg Tablet PO 1,000 mcg QAM CAMMIE Administration Heparin Sodium (Porcine) 5,000 units 08/08/25 21:00 08/10/25 08:51 Heparin Sodium 5,000 Units/Ml Vial SUB-Q 5,000 units Q12HR CAMMIE Administration Losartan Potassium 25 mg 08/08/25 09:00 08/10/25 08:50 Losartan Potassium 25 Mg Tablet PO 25 mg DAILY CAMMIE Administration Mirabegron 25 mg 08/08/25 09:00 08/10/25 08:51 Mirabegron 25 Mg Er Tablet PO 25 mg DAILY CAMMIE Administration Ondansetron HCl 4 mg 08/07/25 22:48 Ondansetron Inj 4 Mg/2 Ml Vial IV PUSH Q4H PRN Nausea Polyethylene Glycol 17 gm 08/08/25 09:00 08/10/25 08:50 Polyethylene Glycol 3350 17 Gm Powd.Pack PO 17 gm QAM CAMMIE Administration Senna 8.6 mg 08/08/25 21:00 08/09/25 21:12 Sennosides 8.6 Mg Tablet PO 8.6 mg HS CAMMIE Administration Vitamin D 25 mcg 08/10/25 09:00 08/10/25 08:51 Cholecalciferol (Vitamin D3) 25 Mcg (1,000 Units) Tablet PO 25 mcg DAILY CAMMIE Administration Radiology Results: ITS Impressions Head CT 08/07/25 21:03 IMPRESSION: No acute intracranial hemorrhage or extra axial fluid collections. All CT scans at this facility are performed using low dose modulation techniques as appropriate to perform exam including the following: automated ex posure control; use of iterative reconstruction technique; adjustment of the mA and/or kV according to patient size (this includes techniques or standardized protocols for targeted exams where dose is matched to indication/reason for exam). Labs Labs: Laboratory Results - last 24 hr 08/10/25 06:14 WBC 7.0 RBC 4.56 Hgb 14.5 Hct 44.5 MCV 97.6 MCH 31.8 MCHC 32.6 RDW 13.5 Plt Count 138 L MPV 11.7 H % Immature Plt Fraction 6.8 Sodium 139 Potassium 3.7 Chloride 107 Carbon Dioxide 24 Anion Gap 8 BUN 19 H Creatinine 1.11 H Estim Creat Clear Calc Not Reportable Estimated GFR 46 L Glucose 108 Calcium 9.0 Ammonia < 9 L Vitamin B12 307.0 Vitamin D 25-Hydroxy 22.3 Folate 9.1 TSH (Reflex) 4.260 Free T4 1.48 Total T3 0.89
[2025-08-10 14:00] VITALS: BP 103/88; PULSE 63; RESP 18; TEMP 36.2; O2SAT 98
[2025-08-10 21:34] VITALS: BP 126/79; PULSE 82; RESP 16; TEMP 36.4; O2SAT 99
[2025-08-10] MEDS: ATORVASTATIN 40 MG TABLET PO (21:49)
[2025-08-10] MEDS: SENNOSIDES 8.6 MG TABLET PO (21:49)
[2025-08-11 05:42] VITALS: BP 134/45; PULSE 64; RESP 16; TEMP 36.2; O2SAT 99
[2025-08-11] MEDS: CHOLECALCIFEROL (VITAMIN D3) 25 MCG (1,000 UNITS) TABLET PO (08:04)
[2025-08-11] MEDS: CYANOCOBALAMIN 1,000 MCG TABLET 1000 MCG PO (08:04)
[2025-08-11] MEDS: LOSARTAN POTASSIUM 25 MG TABLET PO (08:04)
[2025-08-11] MEDS: ASPIRIN 81 MG ENTERIC TABLET PO (08:04)
[2025-08-11] MEDS: CLOPIDOGREL BISULFATE 75 MG TABLET PO (08:04)
[2025-08-11] MEDS: MIRABEGRON 25 MG ER TABLET PO (08:05)
[2025-08-11 13:44] VITALS: BP 154/53; PULSE 93; RESP 18; TEMP 35.9; O2SAT 98
--- NOTE | 2025-08-11 16:43 | PM.DS ---
DS: Admitting Diagnosis Discharge Date 08/11/25 Admitting Diagnosis Mental status changes DS: Discharge Diagnosis Discharge Diagnosis (1) AMS (altered mental status): Code(s): R41.82 - Altered mental status, unspecified Status: Acute (2) Hypertension, essential, benign: Code(s): I10 - Essential (primary) hypertension Status: Acute (3) Chronic kidney disease, stage 3b: Code(s): N18.32 - Chronic kidney disease, stage 3b Status: Acute (4) Dementia: Code(s): F03.90 - Unspecified dementia, unspecified severity, without behavioral disturbance, psychotic disturbance, mood disturbance, and anxiety Status: Acute DS: Summary Hospital Course Reason for hospitalization: 89yo female with dementia, HTN and hx of CVA here for mental status changes and agitation. The patient was recently discharged from here on 08/03/2025. Please see H&P for details. Hospital Course: The following issues were addressed during hospital course: (1) AMS (altered mental status): Patient presented with worsening confusion with baseline history of Alzheimer's dementia. Mental status stable. She remained alert but pleasantly confused. EKG showing no acute changes. Head CT showed no acute intracranial hemorrhage or extra-axial fluid collection. CBC normal except for mild thrombocytopenia. Electrolytes normal. UA clear. Patient was complaining of left distal foot pain but x-ray showed no fracture Ammonia <9. B12 307. VitD 22. Folate normal. TSH normal. PT/OT ordered. B12 and VitD replacement ordered. Care coordination helped with placement (2) Hypertension, essential, benign: Patient's blood pressure was monitored closely BP was elevated at times but overall stable (3) Chronic kidney disease, stage 3b: Cr stable and within her baseline of 1-1.3 (4) Dementia: Stable. Patient overall did well and was able to be discharged on 08/11/2025. Status at Discharge Cognitive/behavioral status at discharge: Stable Time Spent with Patient Time attestation: Total time spent providing and/or coordinating discharge services: 35 minutes Time spent: Greater than 30 minutes Exam Narrative: AF 96.7 154/53 93 18 98% ra Gen - NARD Chest - CTA bilaterally, nml RR CV - RRR S1/S2 Abd - Soft, NT/ND, Positive BS Ext - trace pedal edema. mild pain to distal left foot Neuro - Alert, confused. Cooperative Psych - Nml mood and affect Skin - Warm and dry Discharge Plan Discharge Attending physician on discharge: Dharmesh Arriaza Discharging Clinician: Dharmesh Arriaza Anticipated Discharge Date/Time: 08/11/25 16:49 Patient Disposition: SNF Activity: as tolerated Diet: heart healthy Discharge Instructions: Check blood pressure 1 to 2 times a day. Record for the doctor's review. Take precautions to avoid falls. Rise slowly from a lying or sitting position. Pause before standing or walking. Avoid NSAIDs (ibuprofen, naproxen, Aleve). Tylenol is safe to take. Follow-up with the provider at the facility. Thank you for using [facility] for your health care needs. Patient Instructions: Antibiotic Form Patient Language: Mongolian Stand Alone Forms: General Discharge Information Discharge Medications: New cholecalciferol (vitamin D3) 25 mcg (1,000 unit) Tablet 25 mcg PO DAILY Qty: 30 1RF polyethylene glycol 3350 [Miralax] 17 gram Powder In Packet 17 g PO QAM Qty: 30 0RF sennosides [Senokot] 8.6 mg Tablet 8.6 mg PO HS Qty: 30 0RF cyanocobalamin (vitamin B-12) [Vitamin B-12] 1,000 mcg Tablet 1,000 mcg PO QAM Qty: 30 1RF Continued acetaminophen [Tylenol Arthritis Pain] 650 mg Tablet Extended Release 650 mg PO Q8H PRN (Reason: Pain, Mild) aspirin 81 mg capsule 81 mg PO DAILY mirabegron [Myrbetriq] 50 mg tablet extended release 24 hr 25 mg PO DAILY losartan 25 mg tablet 25 mg PO DAILY Qty: 90 1RF alendronate 70 mg tablet 70 mg PO WEEKLY Qty: 12 3RF clopidogrel 75 mg tablet 75 mg PO DAILY Qty: 90 1RF atorvastatin 40 mg tablet 40 mg PO QHS Qty: 90 1RF Date of admission: 08/07/25 22:48 Primary Care Provider: Cathryn Garcia Admitting Provider: Kirk Davison Attending physician on admission: Kirk Davison Condition: Stable Hospitalist MIPS Heart Failure (Exclusion) Patient has history of Heart Transplant or Left Ventricular Assistive Device?: No IF YES, STOP HERE Heart Failure (Qualifier) Patient has current or prior documentation of LVEF less than or equal to 40%, or mod/servere depressed LVSF?: No IF NO, STOP HERE
[2025-08-11 20:44] VITALS: BP 136/55; PULSE 90; RESP 16; TEMP 37.9; O2SAT 91
[2025-08-11] MEDS: ATORVASTATIN 40 MG TABLET PO (21:35)
[2025-08-11] MEDS: SENNOSIDES 8.6 MG TABLET PO (21:35)
[2025-08-12 05:09] VITALS: BP 163/68; PULSE 74; RESP 20; TEMP 37.3; O2SAT 95
[2025-08-12] MEDS: ASPIRIN 81 MG ENTERIC TABLET PO (08:51)
[2025-08-12] MEDS: CHOLECALCIFEROL (VITAMIN D3) 25 MCG (1,000 UNITS) TABLET PO (08:51)
[2025-08-12] MEDS: CYANOCOBALAMIN 1,000 MCG TABLET 1000 MCG PO (08:51)
[2025-08-12] MEDS: CLOPIDOGREL BISULFATE 75 MG TABLET PO (08:51)
[2025-08-12] MEDS: LOSARTAN POTASSIUM 25 MG TABLET PO (08:51)
[2025-08-12] MEDS: MIRABEGRON 25 MG ER TABLET PO (08:51)
--- NOTE | 2025-08-12 11:49 | PM.DS ---
DS: Admitting Diagnosis Discharge Date 08/12/25 Admitting Diagnosis Mental status changes DS: Discharge Diagnosis Discharge Diagnosis (1) AMS (altered mental status): Code(s): R41.82 - Altered mental status, unspecified Status: Acute (2) Hypertension, essential, benign: Code(s): I10 - Essential (primary) hypertension Status: Acute (3) Chronic kidney disease, stage 3b: Code(s): N18.32 - Chronic kidney disease, stage 3b Status: Acute (4) Dementia: Code(s): F03.90 - Unspecified dementia, unspecified severity, without behavioral disturbance, psychotic disturbance, mood disturbance, and anxiety Status: Acute DS: Summary Hospital Course Reason for hospitalization: 89yo female with dementia, HTN and hx of CVA here for mental status changes and agitation. The patient was recently discharged from here on 08/03/2025. Please see H&P for details. Hospital Course: The following issues were addressed during hospital course: (1) AMS (altered mental status): Patient presented with worsening confusion with baseline history of Alzheimer's dementia. Mental status stable. She remained alert but pleasantly confused. EKG showing no acute changes. Head CT showed no acute intracranial hemorrhage or extra-axial fluid collection. CBC normal except for mild thrombocytopenia. Electrolytes normal. UA clear. Patient was complaining of left distal foot pain but x-ray showed no fracture Ammonia <9. B12 307. VitD 22. Folate normal. TSH normal. PT/OT ordered. B12 and VitD replacement ordered. Care coordination helped with placement (2) Hypertension, essential, benign: Patient's blood pressure was monitored closely BP was elevated at times but overall stable (3) Chronic kidney disease, stage 3b: Cr stable and within her baseline of 1-1.3 (4) Dementia: Stable. (5) Left distal foot pain: Left foot xray was negative for fracture. Possibly gout but no hx of this. Consider related to trauma with soft tissue injury. Will treat symptomatically for now. Feel safe for discharge. Patient was held overnight but no issues and remained hemodynamically stable. She did have a low grade temperature to 100.3 but no recurrence over the next 16 hours. Could be related to over-heating with blankets. She is unable to provide accurate hx. She is on Heparin for DVT prophylaxis and no clinical evidence of DVT. Normal WBC 2 days ago. Spoke with family about options including holding the discharge and doing further testing or continue with discharge to SNF. They wee comfortable with discharge and monitoring at the facility. Patient overall did well and was able to be discharged on 08/12/2025. Status at Discharge Cognitive/behavioral status at discharge: stable Time Spent with Patient Time attestation: Total time spent providing and/or coordinating discharge services: 32 minutes Time spent: Greater than 30 minutes Exam Narrative: Tm 100.3 97.4 163/68 74 20 95% ra Gen - NARD Chest - clear bilaterally to quiet respirations. CV - RRR S1/S2 Abd - Soft, NT/ND, Positive BS Ext - no pedal edema. mild pain to 1st left MTP but no significant erythema or edema Neuro - Alert, confused. Cooperative Psych - Nml mood and affect Skin - Warm and dry Discharge Plan Discharge Attending physician on discharge: Dharmesh Arriaza Discharging Clinician: Dharmesh Arriaza Anticipated Discharge Date/Time: 08/12/25 12:15 Patient Disposition: SNF Activity: as tolerated Diet: heart healthy Discharge Instructions: Apply ice to the distal left foot 2x/day Check blood pressure 1 to 2 times a day. Record for the doctor's review. Take precautions to avoid falls. Rise slowly from a lying or sitting position. Pause before standing or walking. Contact the doctor if the patient has fevers or other worrisome symptoms. Avoid NSAIDs (ibuprofen, naproxen, Aleve). Tylenol is safe to take. Follow-up with the provider at the facility. Thank you for using [facility] for your health care needs. Patient Instructions: Antibiotic Form Patient Language: [place] Citizen Stand Alone Forms: General Discharge Information Follow-up/Referrals: Cathryn Garcia MD [Primary Care Provider, Family Practice] - Call for Appointment Discharge Medications: New sennosides [Senokot] 8.6 mg Tablet 8.6 mg PO HS Qty: 30 0RF polyethylene glycol 3350 [Miralax] 17 gram Powder In Packet 17 g PO QAM Qty: 30 0RF cyanocobalamin (vitamin B-12) [Vitamin B-12] 1,000 mcg Tablet 1,000 mcg PO QAM Qty: 30 1RF cholecalciferol (vitamin D3) 25 mcg (1,000 unit) Tablet 25 mcg PO DAILY Qty: 30 1RF Continued acetaminophen [Tylenol Arthritis Pain] 650 mg Tablet Extended Release 650 mg PO Q8H PRN (Reason: Pain, Mild) aspirin 81 mg capsule 81 mg PO DAILY mirabegron [Myrbetriq] 50 mg tablet extended release 24 hr 25 mg PO DAILY losartan 25 mg tablet 25 mg PO DAILY Qty: 90 1RF alendronate 70 mg tablet 70 mg PO WEEKLY Qty: 12 3RF clopidogrel 75 mg tablet 75 mg PO DAILY Qty: 90 1RF atorvastatin 40 mg tablet 40 mg PO QHS Qty: 90 1RF Date of admission: 08/07/25 22:48 Primary Care Provider: Cathryn Garcia Admitting Provider: Kirk Davison Attending physician on admission: Kirk Davison Condition: Stable Hospitalist MIPS Heart Failure (Exclusion) Patient has history of Heart Transplant or Left Ventricular Assistive Device?: No IF YES, STOP HERE Heart Failure (Qualifier) Patient has current or prior documentation of LVEF less than or equal to 40%, or mod/servere depressed LVSF?: No IF NO, STOP HERE
[2025-08-12] MEDS: ACETAMINOPHEN 325 MG TABLET 650 MG PO (11:55)
== END 2025-08-12 14:25 ==
LOC: ANHED 21:18 → ANH3MEDSUR 08-08 01:14
PROVIDERS: Nurse Practitioner; Admitting Provider Internal Medicine; Emergency Provider Student in an Organized Health Care Education/Training Program; PCP Family Medicine; Visit Provider Internal Medicine
DX: G30.9 Alzheimer's disease, unspecified (principal); F02.811 Dementia in other diseases classified elsewhere, unspecified severity, with agitation; F05 Delirium due to known physiological condition; E78.2 Mixed hyperlipidemia; I12.9 Hypertensive chronic kidney disease with stage 1 through stage 4 chronic kidney disease, or unspecified chronic kidney disease; N18.32 Chronic kidney disease, stage 3b; N32.81 Overactive bladder; K21.9 Gastro-esophageal reflux disease without esophagitis; M10.9 Gout, unspecified; M79.672 Pain in left foot; M25.50 Pain in unspecified joint; E66.811 Obesity, class 1; Z68.36 Body mass index [BMI] 36.0-36.9, adult; Z95.818 Presence of other cardiac implants and grafts; Z79.02 Long term (current) use of antithrombotics/antiplatelets; Z79.82 Long term (current) use of aspirin; Z96.652 Presence of left artificial knee joint; Z86.718 Personal history of other venous thrombosis and embolism; Z86.73 Personal history of transient ischemic attack (TIA), and cerebral infarction without residual deficits
CPT/HCPCS: 36415; 70450; 73630; 80048; 80053; 81003; 82140; 82306; 82607; 82746; 84439; 84443; 84480; 85025; 85027; 85055; 85610; 85730; 93005; 97110; 97162; 97166; 97530; 97535; 99285; A9270; G0378; J1644